=== PATIENT | female | born 2000 | race Caucasian/White ===

== ENCOUNTER 2021-03-20 09:26 | Emergency (ER) | payer OTHER ==
[2021-03-20 09:36] VITALS: BP 139/82
--- NOTE | 2021-03-20 09:39 | ED Physician Documentation ---
PD HPI CHEST PAIN - Stated complaint Stated Complaint: CHEST PX,SOA,NAUSEA - Chief complaint Chief Complaint: Cardiac - History obtained from History obtained from: Patient - History of Present Illness Timing - onset: Yesterday Timing - onset during: Rest Timing - duration: Days (1) Timing - details: Gradual onset, Still present Quality: Sharp, Pain Location: Substernal Radiation: Neck, Back Improved by: Rest Worsened by: Inspiration, Movement, Palpation, Position Associated symptoms: Shortness of air. No: Diaphoresis, Nausea, Vomiting, Feeling faint / dizzy, General Weakness, Palpitations, Cough Similar symptoms before: Has not had sx before Recently seen: Not recently seen - Additional information Additional information: 21-year-old female with a history of ADHD, depression and migraines, reports that she ran out of her bupropion 4 days ago and yesterday she began to develop some central chest pain that she states is stabbing in nature sharp and extremely painful. She has worse pain if she takes a deep breath in. She points to the area along the para sternal area on her chest to indicate the location of the pain. She does admit to sobbing at night recently. She has run out of her bupropion and she is feeling some numbness and tingling to her fingertips and toes as well. Review of Systems Constitutional: denies: Fever Eyes: denies: Decreased vision Ears: denies: Ear pain Nose: denies: Rhinorrhea / runny nose, Congestion Throat: denies: Sore throat Cardiac: reports: Chest pain / pressure. denies: Palpitations, Pedal edema, Calf pain Respiratory: reports: Dyspnea. denies: Cough, Hemoptysis, Wheezing GI: denies: Abdominal Pain, Nausea, Vomiting, Constipation, Diarrhea : denies: Dysuria, Frequency PD PAST MEDICAL HISTORY - Present Medications Home Medications: Ambulatory Orders Medication Instructions Recorded Confirmed traMADol [Ultram] 50 - 100 mg PO Q6H PRN #20 tablet 03/20/21 - Allergies Allergies/Adverse Reactions: Allergies Allergy/AdvReac Type Severity Reaction Status Date / Time Penicillins Allergy Anaphylaxis Verified 03/20/21 09:36 PD ED PE NORMAL - Vitals Vital signs reviewed: Yes (hypertensive ) - General General: Alert and oriented X 3, No acute distress, Well developed/nourished - HEENT HEENT: Atraumatic, PERRL, EOMI - Neck Neck: Supple, no meningeal sign, No bony TTP - Cardiac Cardiac: RRR, No murmur - Respiratory Respiratory: No respiratory distress, Clear bilaterally, Other (There is pain to palpation of the para sternal tissues that reproduces the pain the patient is experiencing.) - Abdomen Abdomen: Normal bowel sounds, Soft, Non tender, Non distended, No organomegaly - Back Back: No CVA TTP, No spinal TTP - Derm Derm: Normal color, Warm and dry, No rash - Extremities Extremities: No deformity, No edema - Neuro Neuro: Alert and oriented X 3, 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, No motor deficit, No sensory deficit, Normal speech Eye Opening: Spontaneous Motor: Obeys Commands Verbal: Oriented GCS Score: 15 - Psych Psych: Normal mood, Normal affect Results - Vitals Vitals: Vital Signs - 24 hr 03/20/21 03/20/21 09:32 09:44 Temperature 36.6 C 36.6 C Heart Rate 59 L 59 L Respiratory 16 13 Rate Blood Pressure 139/82 H 139/82 H O2 Saturation 100 100 Oxygen O2 Source Room air - EKG (time done) 0930 Rate: Rate (enter#) (69) Rhythm: NSR, LAE Ischemia: Normal ST segments Compare to prior EKG: Old EKG unavailable Computer interpretation: Agree with computer - Labs Labs: Laboratory Tests 03/20/21 03/20/21 03/20/21 10:09 10:09 10:09 WBC 5.4 RBC 4.18 L Hgb 12.6 Hct 37.8 MCV 90.4 MCH 30.1 MCHC 33.3 RDW 12.8 Plt Count 254 MPV 10.1 Neut # (Auto) 3.3 Lymph # (Auto) 1.7 [place] # (Auto) 0.4 Eos # (Auto) 0.0 Baso # (Auto) 0.0 Absolute Nucleated RBC 0.00 Nucleated RBC % 0.0 D-Dimer < 200.0 L Sodium 137 Potassium 3.7 Chloride 100 L Carbon Dioxide 27 Anion Gap 10.0 BUN 14 Creatinine 0.7 Estimated GFR (MDRD) 104 Glucose 97 Calcium 9.5 Total Bilirubin 0.3 AST 13 ALT 19 Alkaline Phosphatase 35 L Troponin I High Sens Total Protein 7.5 Albumin 4.6 Globulin 2.9 Albumin/Globulin Ratio 1.6 Lipase 23 03/20/21 10:09 WBC RBC Hgb Hct MCV MCH MCHC RDW Plt Count MPV Neut # (Auto) Lymph # (Auto) [place] # (Auto) Eos # (Auto) Baso # (Auto) Absolute Nucleated RBC Nucleated RBC % D-Dimer Sodium Potassium Chloride Carbon Dioxide Anion Gap BUN Creatinine Estimated GFR (MDRD) Glucose Calcium Total Bilirubin AST ALT Alkaline Phosphatase Troponin I High Sens < 2.3 L Total Protein Albumin Globulin Albumin/Globulin Ratio Lipase - Rads (name of study) chest Radiology: Prelim report reviewed (Impression: No acute cardiopulmonary process demonstrated radiographically.), EMP read indepedently, See rad report PD MEDICAL DECISION MAKING - ED course Complexity details: reviewed results, re-evaluated patient, considered differential, d/w patient ED course: 21-year-old female has discontinued her bupropion when she ran out and she is now began to experience some chest pain and she is concerned that it may be related. I have examined the patient and found that she has some parasternal tenderness that reproduces her pain and she has a history of sobbing at night. She appears to have costochondritis and we will treat her here in the emergency department with dexamethasone Toradol and bupropion. We will obtain specimens and imaging for ruling out cardiac disease as a reason for her chest pain. Departure - Departure Disposition: 01 Home, Self Care Clinical Impression: Costochondritis, acute Condition: Stable Instructions: ED Chest Pain Costochondritis Follow-Up: Your, doctor [Other] Prescriptions: traMADol [Ultram] 50 - 100 mg PO Q6H PRN #20 tablet PRN Reason: Pain
[2021-03-20] MEDS ORDERED: buPROPion XL 150 MG TABLET PO STA (10:00)
[2021-03-20] MEDS ORDERED: KETOROLAC 60 MG/2 ML VIAL IM STA (10:01)
[2021-03-20] MEDS ORDERED: CHERRY SYRUP 10 ML UDC PO ONE (10:01)
[2021-03-20] MEDS ORDERED: DEXAMETHASONE 10 MG/ML VIAL PO STA (10:01)
[2021-03-20 10:14] LABS: BASOPHILS % (AUTO) 0.4 %; EOSINOPHILS % (AUTO) 0.7 %; HCT - HEMATOCRIT 37.8 % (37.0-47.0); HGB - HEMOGLOBIN 12.6 g/dL (12.0-16.0); LYMPHOCYTES # (AUTO) 1.7 10^3/uL (1.5-3.5); LYMPHOCYTES % (AUTO) 31.2 %; MEAN CORPUSCULAR HEMOGLOBIN 30.1 pg (27.0-31.0); MEAN CORPUSCULAR HGB CONC 33.3 g/dL (32.0-36.0); MEAN CORPUSCULAR VOLUME 90.4 fL (81.0-99.0); MEAN PLATELET VOLUME 10.1 fL (7.9-10.8); MONOCYTES # (AUTO) 0.4 10^3/uL (0.0-1.0); MONOCYTES % (AUTO) 6.9 %; NEUTROPHILS # (AUTO) 3.3 10^3/uL (1.5-6.6); NEUTROPHILS % (AUTO) 60.6 %; PLT - PLATELET COUNT 254 10^3/uL (130-450); RED BLOOD COUNT 4.18 10^6/uL (4.20-5.40); RED CELL DISTRIBUTION WIDTH 12.8 % (12.0-15.0); WHITE BLOOD COUNT 5.4 x10^3/uL (4.8-10.8)
[2021-03-20 10:32] LABS: ALBUMIN 4.6 g/dL (3.2-5.5); ALBUMIN/GLOBULIN RATIO 1.6 (1.0-2.2); BILIRUBIN,TOTAL 0.3 mg/dL (0.2-1.0); CALCIUM 9.5 mg/dL (8.5-10.3); CREATININE 0.7 mg/dL (0.4-1.0); POTASSIUM 3.7 mmol/L (3.5-5.0); TOTAL PROTEIN 7.5 g/dL (6.7-8.2)
--- NOTE | 2021-03-20 10:34 | XRAY Report ---
PROCEDURE: Chest 2 View X-Ray INDICATIONS: Chest pain TECHNIQUE: 2 view(s) of the chest. COMPARISON: None. FINDINGS: Surgical changes and devices: None. Lungs and pleura: No pleural effusions or pneumothorax. Lungs are clear. Mediastinum: Mediastinal contours are normal. Heart size is normal. Bones and chest wall: No suspicious bony abnormalities. Soft tissues appear unremarkable. IMPRESSION: No acute cardiopulmonary process demonstrated radiographically. Reviewed by: Edison Ellis MD on 03/20/2021 10:32 AM PDT Approved by: Edison Ellis MD on 03/20/2021 10:32 AM PDT Station ID: [id number]
== END 2021-03-20 11:20 | disposition home or self-care (01) ==
LOC: ED 09:26
DX: M94.0 Chondrocostal junction syndrome [Tietze] (principal)
CPT/HCPCS: 36415; 71046; 80053; 83690; 84484; 85025; 85379; 93005; 96372; 99284; A9270

== ENCOUNTER 2021-04-30 19:46 | Outpatient (CLI) | payer OTHER | END 2021-04-30 19:47 | disposition EMS.NT | LOC: EMS 19:46 | DX: Z04.1 Encounter for examination and observation following transport accident (principal) ==

== ENCOUNTER 2021-04-30 21:53 | Emergency (ER) | payer OTHER ==
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
[2021-05-01 00:26] VITALS: BP 136/82
[2021-05-01] MEDS: ONDANSETRON ODT 4 MG TABLET TL STA (00:50)
[2021-05-01] MEDS: traMADol 50 MG TABLET PO STA (00:50)
[2021-05-01] MEDS: CYCLOBENZAPRINE 10 MG TABLET PO STA (00:50)
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
== END 2021-05-01 00:54 | disposition home or self-care (01) ==
LOC: ED 21:53
DX: S39.012A Strain of muscle, fascia and tendon of lower back, initial encounter (principal); S29.011A Strain of muscle and tendon of front wall of thorax, initial encounter; V43.52XA Car driver injured in collision with other type car in traffic accident, initial encounter
CPT/HCPCS: 70450; 72125; 73000; 99284; A9270; Q0162

== ENCOUNTER 2021-06-07 10:40 | Outpatient (CLI) | payer OTHER | END 2021-06-07 23:59 | disposition home or self-care (01) | LOC: LAB.N 10:40 | PROVIDERS: ATTEND Physician Assistant Medical | DX: R07.0 Pain in throat (principal); Z20.822 Contact with and (suspected) exposure to COVID-19 | CPT/HCPCS: 87070; 87077 ==

== ENCOUNTER 2021-11-20 11:45 | Emergency (ER) | payer OTHER ==
[2021-11-20 12:32] LABS: BASOPHILS % (AUTO) 0.3 %; EOSINOPHILS % (AUTO) 0.7 %; HGB - HEMOGLOBIN 12.5 g/dL (12.0-16.0); LYMPHOCYTES # (AUTO) 1.7 10^3/uL (1.5-3.5); LYMPHOCYTES % (AUTO) 28.2 %; MEAN CORPUSCULAR HGB CONC 34.7 g/dL (32.0-36.0); MEAN CORPUSCULAR VOLUME 89.3 fL (81.0-99.0); MEAN PLATELET VOLUME 10.2 fL (7.9-10.8); MONOCYTES # (AUTO) 0.4 10^3/uL (0.0-1.0); MONOCYTES % (AUTO) 7.5 %; NEUTROPHILS # (AUTO) 3.7 10^3/uL (1.5-6.6); NEUTROPHILS % (AUTO) 63.1 %; PLT - PLATELET COUNT 240 10^3/uL (130-450); RED BLOOD COUNT 4.03 10^6/uL (4.20-5.40); RED CELL DISTRIBUTION WIDTH 12.7 % (12.0-15.0); WHITE BLOOD COUNT 5.9 x10^3/uL (4.8-10.8)
[2021-11-20] MEDS ORDERED: HYDROcod/ACETAM 5/325 MG TABLET PO STA (12:35)
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
[2021-11-20 12:48] LABS: ALBUMIN 4.5 g/dL (3.2-5.5); ALBUMIN/GLOBULIN RATIO 1.6 (1.0-2.2); BILIRUBIN,TOTAL 0.4 mg/dL (0.2-1.0); CALCIUM 9.2 mg/dL (8.5-10.3); CREATININE 0.6 mg/dL (0.4-1.0); POTASSIUM 3.5 mmol/L (3.5-5.0); TOTAL PROTEIN 7.4 g/dL (6.7-8.2)
[2021-11-20 12:52] LABS: BILIRUBIN,URINE NEGATIVE (NEGATIVE); GLUCOSE, URINE (UA) NEGATIVE (NEGATIVE); KETONES,URINE (UA) NEGATIVE (NEGATIVE); LEUKOCYTE ESTERASE, URINE NEGATIVE (NEGATIVE); NITRITE,URINE NEGATIVE (NEGATIVE); OCCULT BLOOD,URINE TRACE-INTA (NEGATIVE); PH,URINE 5.5 PH (5.0-7.5); PROTEIN,URINE NEGATIVE (NEGATIVE); UROBILINOGEN,URINE 0.2 (NORMAL) E.U./dL (NORMAL)
[2021-11-20 12:54] LABS: CLARITY,URINE CLEAR (CLEAR)
--- NOTE | 2021-11-20 15:18 | Ultrasound Report ---
PROCEDURE: OB First Trimester w/TV INDICATIONS: pelvic pain, 5 weeks preg TECHNIQUE: Transvaginal ultrasound pelvis was performed. COMPARISON: None. FINDINGS: Uterus is appropriate in size and echotexture. Endometrial thickness measures approximately a 1.2 cm. Within the endometrial cavity, there is an irregular fluid collection without internal contents mart uring 2.3 x 0.7 x 1.1 cm. Both ovaries have appropriate vascularity. There is a complex left ovarian cyst measuring 2.4 x 1.7 x 2.4 cm. No free fluid or adnexal mass IMPRESSION: 1. Irregular fluid collection within the endometrial canal without internal contents. Differential po ssibilities would include normal early , anembryonic , and pseudosac and with nonvi sualized ectopic . Consider short-term follow-up 2. Complex left ovarian cyst, probable corpus luteum cyst. Reviewed by: Husam Huerta MD on 11/20/2021 2:17 PM [place] Approved by: Husam Huerta MD on 11/20/2021 2:17 PM [place] Station ID: [id number]
[2021-11-20] MEDS ORDERED: METHOTREXATE 50 MG/2 ML IM STA (15:50)
[2021-11-20 17:30] VITALS: BP 118/75
== END 2021-11-20 17:17 | disposition home or self-care (01) ==
LOC: ED 11:45
DX: O00.202 Left ovarian pregnancy without intrauterine pregnancy (principal); Z3A.01 Less than 8 weeks gestation of pregnancy
CPT/HCPCS: 36415; 76801; 76817; 80053; 81003; 83690; 84702; 85025; 86900; 86901; 96372; 99283; 99284; A9270; J9250; 81001; 87086

== ENCOUNTER 2021-11-23 09:28 | Day surgery (SDC) | payer OTHER ==
[2021-11-23 09:52] LABS: BILIRUBIN,URINE NEGATIVE (NEGATIVE); GLUCOSE, URINE (UA) NEGATIVE (NEGATIVE); KETONES,URINE (UA) NEGATIVE (NEGATIVE); LEUKOCYTE ESTERASE, URINE NEGATIVE (NEGATIVE); NITRITE,URINE NEGATIVE (NEGATIVE); OCCULT BLOOD,URINE TRACE-INTA (NEGATIVE); PROTEIN,URINE NEGATIVE (NEGATIVE); UROBILINOGEN,URINE 0.2 (NORMAL) E.U./dL (NORMAL)
[2021-11-23 09:53] LABS: CLARITY,URINE HAZY (CLEAR); HCG UR QUAL POSITIVE
--- NOTE | 2021-11-23 09:57 | ED Physician Documentation ---
PD HPI FEMALE - Stated complaint Stated Complaint: ABD PAIN - Chief complaint Chief Complaint: Abd Pain - History obtained from History obtained from: Patient - History of Present Illness Timing - onset: How many days ago (5) Timing - duration: Days (5) Timing - details: Gradual onset, Still present (worsened the past 2 days), Constant Associated symptoms: Fever (reports low fever 100 last evening.), Pelvic pain. No: Vaginal bleeding, Vaginal discharge Contributing factors: (seen 4 days ago and had US and quant showing tubal and given methotrexate. Patient states increased pain the past 2 days. Was to follow up with CHEMICAL PROCESSING SUPERVISOR today but pain worse.) Similar symptoms before: Diagnosis (current diagnosis of tubal .) Recently seen: Emergency Dept Review of Systems Constitutional: reports: Fever (last evening). denies: Myalgias Nose: denies: Rhinorrhea / runny nose, Congestion Throat: denies: Sore throat Respiratory: denies: Cough GI: reports: Abdominal Pain. denies: Abdominal Swelling, Vomiting, Diarrhea : denies: Dysuria, Discharge Neurologic: reports: Generalized weakness. 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 : None HEENT: Chronic vision loss Psych: Depression Musculoskeletal: None Derm: None - Past Surgical History Past Surgical History: No - Present Medications Home Medications: Ambulatory Orders Medication Instructions Recorded Confirmed HYDROcod/ACETAM 5/325 [[place] 5/325] 1 - 2 ea PO Q6H PRN #14 tablet 11/20/21 Ondansetron Odt [Zofran] 4 mg TL Q6H PRN #10 tablet 11/20/21 HYDROcod/ACETAM 5/325 [[place] 5/325] 1 - 2 tablet PO Q6H PRN #14 tablet 11/23/21 Ibuprofen [Motrin] 1 tablet PO Q8H PRN #30 tablet 11/23/21 - Allergies Allergies/Adverse Reactions: Allergies Allergy/AdvReac Type Severity Reaction Status Date / Time Penicillins Allergy Anaphylaxis Verified 11/23/21 09:37 hydromorphone AdvReac Hallucinati Verified 11/23/21 10:22 ons - Social History Does the pt smoke?: No Smoking Status: Never smoker Does the pt drink ETOH?: No Does the pt have substance abuse?: No - Immunizations Immunizations are current?: Yes - POLST Patient has POLST: No PD ED PE NORMAL - Vitals Vital signs reviewed: Yes - General General: Alert and oriented X 3, Well developed/nourished, Other (appears in pain lower abd.) - Neck Neck: Supple, no meningeal sign, No adenopathy - Cardiac Cardiac: RRR, No murmur - Respiratory Respiratory: Clear bilaterally - Abdomen Abdomen: No organomegaly, Other (Left lower abdominal tenderness most locally with marked tenderness on palpation as well as percussion. Referred tenderness from the right lower as well as the periumbilical to the left. Positive rebound.) - Female Female : Deferred - Back Back: No CVA TTP - Derm Derm: Normal color, Warm and dry Results - Vitals Vitals: Vital Signs - 24 hr 11/23/21 11/23/21 11/23/21 09:34 11:37 13:00 Temperature 36.3 C L Heart Rate 99 60 88 Respiratory 16 20 16 Rate Blood Pressure 121/72 119/58 L 136/85 H O2 Saturation 100 99 98 11/23/21 11/23/21 11/23/21 15:00 17:03 17:05 Temperature 36.5 C 37.3 C Heart Rate 86 98 104 H Respiratory 16 16 25 H Rate Blood Pressure 130/80 111/66 111/57 L O2 Saturation 100 100 100 11/23/21 11/23/21 11/23/21 17:11 17:15 17:20 Temperature Heart Rate 88 64 75 Respiratory 20 18 10 L Rate Blood Pressure 117/62 118/67 112/61 O2 Saturation 100 98 99 11/23/21 11/23/21 11/23/21 17:25 17:30 17:36 Temperature 37.3 C Heart Rate 72 59 L 60 Respiratory 17 15 16 Rate Blood Pressure 114/55 L 106/55 L 105/58 L O2 Saturation 100 99 98 11/23/21 11/23/21 11/23/21 17:41 17:50 18:14 Temperature 36.9 C Heart Rate 57 L 64 75 Respiratory 14 19 16 Rate Blood Pressure 105/65 106/63 117/63 O2 Saturation 99 100 100 11/23/21 11/23/21 19:29 20:29 Temperature Heart Rate 91 83 Respiratory 18 16 Rate Blood Pressure 107/85 H 119/53 L O2 Saturation 98 99 Oxygen O2 Source Room air - Labs Labs: Laboratory Tests 11/23/21 11/23/21 11/23/21 09:40 10:07 10:07 WBC 5.3 RBC 3.98 L Hgb 12.0 Hct 36.3 L MCV 91.2 MCH 30.2 MCHC 33.1 RDW 12.6 Plt Count 226 MPV 10.4 Neut # (Auto) 3.7 Lymph # (Auto) 1.3 L [place] # (Auto) 0.2 Eos # (Auto) 0.1 Baso # (Auto) 0.0 Absolute Nucleated RBC 0.00 Nucleated RBC % 0.0 Sodium 133 L Potassium 3.6 Chloride 101 Carbon Dioxide 23 Anion Gap 9.0 BUN 10 Creatinine 0.6 Estimated GFR (MDRD) 124 Glucose 129 H Calcium 9.0 Total Bilirubin 0.6 AST 30 ALT 35 Alkaline Phosphatase 25 L Total Protein 7.2 Albumin 4.1 Globulin 3.1 Albumin/Globulin Ratio 1.3 Lipase 26 HCG, Quant Urine Color YELLOW Urine Clarity HAZY Urine pH 6.0 Ur Specific [place] >=1.030 H Urine Protein NEGATIVE Urine Glucose (UA) NEGATIVE Urine Ketones NEGATIVE Urine Occult Blood TRACE-INTA Urine Nitrite NEGATIVE Urine Bilirubin NEGATIVE Urine Urobilinogen 0.2 (NORMAL) Ur Leukocyte Esterase NEGATIVE Urine RBC 0-5 Urine WBC 0-3 Ur Squamous Epith Cells MANY Squamous H Urine Bacteria Many H Urine Mucus Marked Strands Ur Microscopic Review INDICATED Urine Culture Comments NOT INDICATED Urine HCG, Qual POSITIVE Nasal Adenovirus (PCR) Nasal B. parapertussis DNA (PCR) Nasal Coronavir 229E PCR Nasal Coronavir HKU1 PCR Nasal Coronavir NL63 PCR Nasal Coronavir OC43 PCR Nasal Enterovir/Rhinovir PCR Nasal Influenza B PCR Nasal Influenza A PCR Nasal Parainfluen 1 PCR Nasal Parainfluen 2 PCR Nasal Parainfluen 3 PCR Nasal Parainfluen 4 PCR Nasal RSV (PCR) Nasal B.pertussis DNA PCR Nasal C.pneumoniae (PCR) [place] Human Metapneumo PCR Nasal M.pneumoniae (PCR) Nasal SARS-CoV-2 (PCR) Blood Type 11/23/21 11/23/21 11/23/21 10:07 10:07 12:12 WBC RBC Hgb Hct MCV MCH MCHC RDW Plt Count MPV Neut # (Auto) Lymph # (Auto) [place] # (Auto) Eos # (Auto) Baso # (Auto) Absolute Nucleated RBC Nucleated RBC % Sodium Potassium Chloride Carbon Dioxide Anion Gap BUN Creatinine Estimated GFR (MDRD) Glucose Calcium Total Bilirubin AST ALT Alkaline Phosphatase Total Protein Albumin Globulin Albumin/Globulin Ratio Lipase HCG, Quant 2249.00 Urine Color Urine Clarity Urine pH Ur Specific [place] Urine Protein Urine Glucose (UA) Urine Ketones Urine Occult Blood Urine Nitrite Urine Bilirubin Urine Urobilinogen Ur Leukocyte Esterase Urine RBC Urine WBC Ur Squamous Epith Cells Urine Bacteria Urine Mucus Ur Microscopic Review Urine Culture Comments Urine HCG, Qual Nasal Adenovirus (PCR) NOT DETECTED Nasal B. parapertussis DNA (PCR) NOT DETECTED Nasal Coronavir 229E PCR NOT DETECTED Nasal Coronavir HKU1 PCR NOT DETECTED Nasal Coronavir NL63 PCR NOT DETECTED Nasal Coronavir OC43 PCR NOT DETECTED Nasal Enterovir/Rhinovir PCR NOT DETECTED Nasal Influenza B PCR NOT DETECTED Nasal Influenza A PCR NOT DETECTED Nasal Parainfluen 1 PCR NOT DETECTED Nasal Parainfluen 2 PCR NOT DETECTED Nasal Parainfluen 3 PCR NOT DETECTED Nasal Parainfluen 4 PCR NOT DETECTED Nasal RSV (PCR) NOT DETECTED Nasal B.pertussis DNA PCR NOT DETECTED Nasal C.pneumoniae (PCR) NOT DETECTED [place] Human Metapneumo PCR NOT DETECTED Nasal M.pneumoniae (PCR) NOT DETECTED Nasal SARS-CoV-2 (PCR) NOT DETECTED Blood Type A POSITIVE - Rads (name of study) OB U/S Radiology: Prelim report reviewed (similar to 3 days ago, without free fluid in pelvis. Ovarian mass still seen. No IUP. ), See rad report PD MEDICAL DECISION MAKING - ED course Complexity details: reviewed old records (from 4 days ago), reviewed results (rising quants may be just methotrexate not having full effect yet, but is about doubled, and patient having worse pain. No signs of rupture as yet but concern for that. ), considered differential (Patient with ectopic treated with methotrexate 3 days ago with worsening pain. She also claims fever last night. Abdominal exam is peritoneal concerning for possible rupture or general inflammatory), d/w patient, d/w business intelligence consultant (CHEMICAL PROCESSING SUPERVISOR) Departure - Departure Disposition: ED Transfer to [facility] Clinical Impression: Ectopic , Abdominal pain Condition: Stable Discharge Date/Time: 11/23/21 16:39
[2021-11-23] MEDS ORDERED: HYDROmorphone 1 MG/ML CARPUJECT IVP STA (10:01)
[2021-11-23] MEDS ORDERED: ONDANSETRON 4 MG/2 ML VIAL IVP STA (10:01)
[2021-11-23] MEDS ORDERED: KETOROLAC 15 MG/ML VIAL IVP STA (10:01)
[2021-11-23] MEDS ORDERED: SODIUM CHLORIDE 0.9% 1,000 ML IV STA (10:01)
[2021-11-23 10:10] LABS: BACTERIA,URINE Many /HPF (None Seen); MUCUS,URINE Marked Strands; RBC,URINE 0-5 /HPF (0-5); SQUAMOUS EPITHELIAL CELL,UR MANY Squamous (<= Few); WBC,URINE 0-3 /HPF (0-5)
[2021-11-23 10:15] LABS: BASOPHILS % (AUTO) 0.4 %; EOSINOPHILS # (AUTO) 0.1 10^3/uL (0.0-0.7); EOSINOPHILS % (AUTO) 1.1 %; HCT - HEMATOCRIT 36.3 % (37.0-47.0); LYMPHOCYTES # (AUTO) 1.3 10^3/uL (1.5-3.5); LYMPHOCYTES % (AUTO) 24.8 %; MEAN CORPUSCULAR HEMOGLOBIN 30.2 pg (27.0-31.0); MEAN CORPUSCULAR HGB CONC 33.1 g/dL (32.0-36.0); MEAN CORPUSCULAR VOLUME 91.2 fL (81.0-99.0); MEAN PLATELET VOLUME 10.4 fL (7.9-10.8); MONOCYTES # (AUTO) 0.2 10^3/uL (0.0-1.0); MONOCYTES % (AUTO) 3.2 %; NEUTROPHILS # (AUTO) 3.7 10^3/uL (1.5-6.6); NEUTROPHILS % (AUTO) 70.3 %; PLT - PLATELET COUNT 226 10^3/uL (130-450); RED BLOOD COUNT 3.98 10^6/uL (4.20-5.40); RED CELL DISTRIBUTION WIDTH 12.6 % (12.0-15.0); WHITE BLOOD COUNT 5.3 x10^3/uL (4.8-10.8)
[2021-11-23 10:28] LABS: ALBUMIN 4.1 g/dL (3.2-5.5); ALBUMIN/GLOBULIN RATIO 1.3 (1.0-2.2); BILIRUBIN,TOTAL 0.6 mg/dL (0.2-1.0); CREATININE 0.6 mg/dL (0.4-1.0); POTASSIUM 3.6 mmol/L (3.5-5.0); TOTAL PROTEIN 7.2 g/dL (6.7-8.2)
[2021-11-23] MEDS ORDERED: fentaNYL 100 MCG/2 ML VIAL IVP STA (12:32)
--- NOTE | 2021-11-23 12:43 | Ultrasound Report ---
PROCEDURE: OB First Trimester INDICATIONS: worse pain, ectopic dx 4 days ago OUTSIDE/PRIOR DATING DATA: Last menstrual period (LMP): 10/18/2021. LMP-based estimated date of delivery (MANN): 07/25/2022. First dating scan (date and location): n.a. Estimated date of delivery (MANN) from first dating scan: n.a. TECHNIQUE: Real-time scanning was performed of the fetus and maternal pelvic organs, with image documentation. COMPARISON: The ultrasound 11/20/2021. FINDINGS: No intrauterine is identified. Endometrium is thickened. There are 2 small cysti c structures within the endometrium measuring approximately 4 mm. Maternal organs: There is a complex cyst in the left ovary measuring 2.9 x 2.2 x 1.8 cm. Right ovary is grossly normal. IMPRESSION: 1. No intrauterine is identified. Two small 4 mm cystic structures are noted in the endomet rium. Irregular fluid collection seen in the uterine cavity on the last exam is no longer visualized. Please correlate with quantitative beta hCG. 2. Complex cyst is present in the left ovary measuring 2.9 x 2.2 x 1.8 cm. Reviewed by: Magdalene Mera MD on 11/23/2021 12:42 PM PST Approved by: Magdalene Mera MD on 11/23/2021 12:42 PM PST Station ID: [id number]
--- NOTE | 2021-11-23 12:50 | CONSULTATION NOTE ---
Referring Provider Consult Date: 11/23/21 Chief Complaint - Chief Complaint Chief Complaint: Ectopic History of Present Illness - Admitted From Admitted From:: ED - History of Present Illness HPI Comment/Other: Patient presents with complaints of left lower abdominal pain. She reports she began to have pain nausea and vomiting on Friday. She presented to the emergency department at that time and was found to have an ectopic . Following counseling the patient reports received methotrexate. She returned to the emergency department today for a follow-up blood draw and reports that she has had increasing abdominal pain as well as increased nausea and vomiting. Ultrasound today shows a left-sided complex mass. No intrauterine was noted. Her beta-hCG was noted to be 2200. MACHINE LAY OUT WORKER was consulted for evaluation. History - Past Medical History Cardiovascular: reports: None Respiratory: reports: None Neuro: reports: None Endocrine/Autoimmune: reports: None GI: reports: None MACHINE LAY OUT WORKER: reports: Miscarriage(s) (x2 (first trimester) ) : reports: None HEENT: reports: Chronic vision loss Psych: reports: Depression Musculoskeletal: reports: None Derm: reports: None MRSA Hx?: No - POLST Patient has POLST: No Meds/Allgy - Home Medications Home Medications: Ambulatory Orders Medication Instructions Recorded Confirmed HYDROcod/ACETAM 5/325 [[place] 5/325] 1 - 2 ea PO Q6H PRN #14 tablet 11/20/21 Ondansetron Odt [Zofran] 4 mg TL Q6H PRN #10 tablet 11/20/21 - Allergies Allergies/Adverse Reactions: Allergies Allergy/AdvReac Type Severity Reaction Status Date / Time Penicillins Allergy Anaphylaxis Verified 11/23/21 09:37 hydromorphone AdvReac Hallucinati Verified 11/23/21 10:22 ons Review of Systems - Constitutional Constitutional: reports: Chills. denies: Fever - Gastrointestinal Gastrointestinal: reports: Abdominal pain, Nausea, Vomiting Exam - Vital Signs Reviewed Vital Signs: Yes Vital Signs: Vital Signs x48h Temp Pulse Resp BP Pulse Ox 11/23/21 11:37 60 20 119/58 L 99 11/23/21 09:34 97.3 F L 99 16 121/72 100 - Physical Exam General Appearance: positive: Mild distress Respiratory: positive: No respiratory distress Abdomen: positive: Tenderness (Left lower quadrant), Rebound Conclusion/Plan - Problem List (1) Ectopic Conclusion/Plan: Suspected ectopic . Status post methotrexate with increasing pain. Beta-hCG of 2200. Repeat ultrasound with left adnexal mass noted. No free fluid was appreciated. However the patient does have left-sided tenderness. She was counseled regarding expectant management with follow-up beta hCG on day 7 following methotrexate versus surgical management. We discussed the risk of ruptured ectopic which include the risk of hemorrhage. Following counseling she elected for diagnostic laparoscopy. OR team notified. Plan to proceed with diagnostic laparoscopy with left possible salpingo-oophorectomy. All questions and concerns answered. - Lab Results Lab results reviewed: Yes Fish Bones: 11/23/21 10:07 11/23/21 10:07 - Diagnostic Imaging Results Diagnostic Imaging Results: positive: Final report reviewed Diagnostic Imaging Results Comments: Ultrasound with 2.9 x 2.2 x 1.8 cm complex left ovarian cyst noted. No intrauterine . 4 mm cystic structure in the endometrium.
--- NOTE | 2021-11-23 13:09 | HISTORY & PHYSICAL EXAMINATION ---
Admit History - : 5 Parity: 2 : 2 Smoking Status: Never smoker - Other Maternal History Other Maternal History: Referring Provider Consult Date: 11/23/21 Chief Complaint - Chief Complaint Chief Complaint: Ectopic History of Present Illness - Admitted From Admitted From:: ED - History of Present Illness HPI Comment/Other: Patient presents with complaints of left lower abdominal pain. She reports she began to have pain nausea and vomiting on Friday. She presented to the emergency department at that time and was found to have an ectopic . Following counseling the patient reports received methotrexate. She returned to the emergency department today for a follow-up blood draw and reports that she has had increasing abdominal pain as well as increased nausea and vomiting. Ultrasound today shows a left-sided complex mass. No intrauterine was noted. Her beta-hCG was noted to be 2200. TANK BUILDER was consulted for evaluation. History - Past Medical History Cardiovascular: reports: None Respiratory: reports: None Neuro: reports: None Endocrine/Autoimmune: reports: None GI: reports: None TANK BUILDER: reports: Miscarriage(s) (x2 (first trimester) ) : reports: None HEENT: reports: Chronic vision loss Psych: reports: Depression Musculoskeletal: reports: None Derm: reports: None MRSA Hx?: No - POLST Patient has POLST: No Meds/Allgy - Home Medications Home Medications: Ambulatory Orders Medication Instructions Recorded Confirmed HYDROcod/ACETAM 5/325 [[place] 5/325] 1 - 2 ea PO Q6H PRN #14 tablet 11/20/21 Ondansetron Odt [Zofran] 4 mg TL Q6H PRN #10 tablet 11/20/21 - Allergies Allergies/Adverse Reactions: Allergies Allergy/AdvReac Type Severity Reaction Status Date / Time Penicillins Allergy Anaphylaxis Verified 11/23/21 09:37 hydromorphone AdvReac Hallucinati Verified 11/23/21 10:22 ons Review of Systems - Constitutional Constitutional: reports: Chills. denies: Fever - Gastrointestinal Gastrointestinal: reports: Abdominal pain, Nausea, Vomiting Exam - Vital Signs Reviewed Vital Signs: Yes Vital Signs: Vital Signs x48h Temp Pulse Resp BP Pulse Ox 11/23/21 11:37 60 20 119/58 L 99 11/23/21 09:34 97.3 F L 99 16 121/72 100 - Physical Exam General Appearance: positive: Mild distress Respiratory: positive: No respiratory distress Abdomen: positive: Tenderness (Left lower quadrant), Rebound Conclusion/Plan - Problem List (1) Ectopic Conclusion/Plan: Suspected ectopic . Status post methotrexate with increasing pain. Beta-hCG of 2200. Repeat ultrasound with left adnexal mass noted. No free fluid was appreciated. However the patient does have left-sided tenderness. She was counseled regarding expectant management with follow-up beta hCG on day 7 following methotrexate versus surgical management. We discussed the risk of ruptured ectopic which include the risk of hemorrhage. Following counseling she elected for diagnostic laparoscopy. OR team notified. Plan to proceed with diagnostic laparoscopy with left possible salpingo-oophorectomy. All questions and concerns answered. - Lab Results Lab results reviewed: Yes Fish Bones: 11/23/21 10:07 11/23/21 10:07 - Diagnostic Imaging Results Diagnostic Imaging Results: positive: Final report reviewed Diagnostic Imaging Results Comments: Ultrasound with 2.9 x 2.2 x 1.8 cm complex left ovarian cyst noted. No intrauterine . 4 mm cystic structure in the endometrium. Meds/Allgy - Home Medications Home Medications: Ambulatory Orders Medication Instructions Recorded Confirmed HYDROcod/ACETAM 5/325 [[place] 5/325] 1 - 2 ea PO Q6H PRN #14 tablet 11/20/21 Ondansetron Odt [Zofran] 4 mg TL Q6H PRN #10 tablet 11/20/21 - Allergies Allergies/Adverse Reactions: Allergies Allergy/AdvReac Type Severity Reaction Status Date / Time Penicillins Allergy Anaphylaxis Verified 11/23/21 09:37 hydromorphone AdvReac Hallucinati Verified 11/23/21 10:22 ons Physical - Abdominal Exam Vital Signs: Temp Pulse Resp BP Pulse Ox 97.3 F L 60 20 119/58 L 99 11/23/21 09:34 11/23/21 11:37 11/23/21 11:37 11/23/21 11:37 11/23/21 11:37 Assessment/Plan - Results Lab Results: Laboratory Results Sodium 133 mmol/L (135-145) L 11/23/21 10:07 Potassium 3.6 mmol/L (3.5-5.0) 11/23/21 10:07 Chloride 101 mmol/L (101-111) 11/23/21 10:07 Carbon Dioxide 23 mmol/L (21-32) 11/23/21 10:07 Anion Gap 9.0 (6-13) 11/23/21 10:07 BUN 10 mg/dL (6-20) 11/23/21 10:07 Creatinine 0.6 mg/dL (0.4-1.0) 11/23/21 10:07 Glucose 129 mg/dL (70-100) H 11/23/21 10:07 Calcium 9.0 mg/dL (8.5-10.3) 11/23/21 10:07 Total Bilirubin 0.6 mg/dL (0.2-1.0) 11/23/21 10:07 AST 30 IU/L (10-42) 11/23/21 10:07 ALT 35 IU/L (10-60) 11/23/21 10:07 Alkaline Phosphatase 25 IU/L (42-121) L 11/23/21 10:07 Total Protein 7.2 g/dL (6.7-8.2) 11/23/21 10:07 Albumin 4.1 g/dL (3.2-5.5) 11/23/21 10:07 Globulin 3.1 g/dL (2.1-4.2) 11/23/21 10:07 Albumin/Globulin Ratio 1.3 (1.0-2.2) 11/23/21 10:07 - Home Meds/Allergies Allergies Penicillins Allergy (Verified 11/23/21 09:37) Anaphylaxis hydromorphone Adverse Reaction (Verified 11/23/21 10:22) Hallucinations
--- NOTE | 2021-11-23 13:18 | Ultrasound Report ---
PROCEDURE: OB Transvaginal INDICATIONS: worse pain, ectopic dx 4 days ago OUTSIDE/PRIOR DATING DATA: Last menstrual period (LMP): 10/18/2021. LMP-based estimated date of delivery (MANN): 07/25/2022. First dating scan (date and location): n.a. Estimated date of delivery (MANN) from first dating scan: n.a. TECHNIQUE: Real-time endovaginal scanning was performed of the fetus and maternal pelvic organs, with image docu mentation. COMPARISON: The ultrasound 11/20/2021. FINDINGS: No intrauterine is identified. Endometrium is thickened. There are 2 small cysti c structures within the endometrium measuring approximately 4 mm. Maternal organs: There is a complex cyst in the left ovary measuring 2.9 x 2.2 x 1.8 cm. Right ovary is grossly normal. IMPRESSION: 1. No intrauterine is identified. Two small 4 mm cystic structures are noted in the endomet rium. Irregular fluid collection seen in the uterine cavity on the last exam is no longer visualized. Please correlate with quantitative beta hCG. 2. Complex cyst is present in the left ovary measuring 2.9 x 2.2 x 1.8 cm. Reviewed by: Magdalene Mera MD on 11/23/2021 1:17 PM PST Approved by: Magdalene Mera MD on 11/23/2021 1:17 PM PST Station ID: [id number]
[2021-11-23 13:25] LABS: B. PARAPERTUSSIS- RESP PCR PAN NOT DETECTED; B. PERTUSSIS- RESP PCR PANEL NOT DETECTED; C. PNEUMONIAE- RESP PCR PANEL NOT DETECTED; CORONAVIRUS 229E-RESP PCR NOT DETECTED; CORONAVIRUS HKU1-RESP PCR NOT DETECTED; CORONAVIRUS NL63-RESP PCR NOT DETECTED; CORONAVIRUS OC43-RESP PCR NOT DETECTED; HUMAN METAPNEUMOVIRUS NOT DETECTED; INFLUENZA A- RESP PCR PANEL NOT DETECTED; INFLUENZA B - RESP PCR PANEL NOT DETECTED; M. PNEUMONIAE- RESP PCR PANEL NOT DETECTED; PARAINFLUENZA VIRUS 1 NOT DETECTED; PARAINFLUENZA VIRUS 2 NOT DETECTED; PARAINFLUENZA VIRUS 3 NOT DETECTED; PARAINFLUENZA VIRUS 4 NOT DETECTED; RHINOVIRUS/ENTEROVIRUS NOT DETECTED; RSV- RESP PCR PANEL NOT DETECTED; SARS-CoV-2 -RESP PCR PANEL NOT DETECTED
[2021-11-23] MEDS ORDERED: LIDOCAINE-MPF 2% 5 ML VIAL ONE (13:45)
[2021-11-23] MEDS ORDERED: PROPOFOL 200 MG/20 ML VIAL IVP ONE (13:45)
[2021-11-23] MEDS ORDERED: KETOROLAC 30 MG/ML VIAL ONE (13:46)
[2021-11-23] MEDS ORDERED: DEXAMETHASONE 4 MG/ML VIAL ONE (13:46)
[2021-11-23] MEDS ORDERED: ROCURONIUM 50 MG/5 ML VIAL ONE (13:46)
[2021-11-23] MEDS ORDERED: ePHEDrine 50 MG/ML VIAL IVP PRN (14:59)
[2021-11-23] MEDS ORDERED: ONDANSETRON 4 MG/2 ML VIAL IVP PRN (14:59)
[2021-11-23] MEDS ORDERED: HYDROmorphone 0.5 MG/0.5 ML SYRINGE IVP PRN (14:59)
[2021-11-23] MEDS ORDERED: MORPHINE 2 MG/ML CARPUJECT IVP PRN (14:59)
[2021-11-23] MEDS ORDERED: fentaNYL 100 MCG/2 ML VIAL IVP PRN (14:59)
[2021-11-23] MEDS ORDERED: METOCLOPRAMIDE 10 MG/2 ML VIAL IVP PRN (14:59)
[2021-11-23] MEDS ORDERED: ATROPINE ABBOJECT 1 MG/10 ML SYRINGE IVP PRN (14:59)
[2021-11-23] MEDS ORDERED: NALOXONE 0.4 MG/ML VIAL IVP PRN (14:59)
[2021-11-23] MEDS ORDERED: LACTATED RINGERS 1,000 ML IV SCH ×2 (15:00→18:00)
--- NOTE | 2021-11-23 15:00 | ANESTHESIA ---
Pre-Anesthesia VS, & Labs - Diagnosis ectopic - Procedure Diagnostic laparoscopy Vital Signs: Temp Pulse Resp BP Pulse Ox 36.3 C L 88 16 136/85 H 98 11/23/21 09:34 11/23/21 13:00 11/23/21 13:00 11/23/21 13:00 11/23/21 13:00 Height: 5 ft 7 in Weight (kg): 95.254 kg Body Mass Index: 32.8 BMI Classification: Obese - NPO >8 hours - Is Patient ?: Yes (ectopic) - Lab Results Current Lab Results: Laboratory Tests 11/23/21 10:07: Blood Type A POSITIVE 11/23/21 10:07: HCG, Quant 2249.00 11/23/21 10:07: Sodium 133 L, Potassium 3.6, Chloride 101, Carbon Dioxide 23, Anion Gap 9.0, BUN 10, Creatinine 0.6, Estimated GFR (MDRD) 124, Glucose 129 H, Calcium 9.0, Total Bilirubin 0.6, AST 30, ALT 35, Alkaline Phosphatase 25 L, Total Protein 7.2, Albumin 4.1, Globulin 3.1, Albumin/Globulin Ratio 1.3, Lipase 26 11/23/21 10:07: WBC 5.3, RBC 3.98 L, Hgb 12.0, Hct 36.3 L, MCV 91.2, MCH 30.2, MCHC 33.1, RDW 12.6, Plt Count 226, MPV 10.4, Neut # (Auto) 3.7, Lymph # (Auto) 1.3 L, [place] # (Auto) 0.2, Eos # (Auto) 0.1, Baso # (Auto) 0.0, Absolute Nucleated RBC 0.00, Nucleated RBC % 0.0 Lab results reviewed: Yes Fish Bones: 11/23/21 10:07 11/23/21 10:07 Home Medications and Allergies Allergies/Adverse Reactions: Allergies Allergy/AdvReac Type Severity Reaction Status Date / Time Penicillins Allergy Anaphylaxis Verified 11/23/21 09:37 hydromorphone AdvReac Hallucinati Verified 11/23/21 10:22 ons Anes History & Medical History - Anesthetic History Anesthesia Complications: reports: No previous complications Family history of Anesthesia Complications: Denies Family history of Malignant Hyperthermia: Denies - Medical History Cardiovascular: reports: None Pulmonary: reports: None Gastrointestinal: reports: None Urinary: reports: None Neuro: reports: None Musculoskeletal: reports: None Endocrine/Autoimmune: reports: None Blood Disorders: reports: None Skin: reports: None Smoking Status: Current some day smoker Psychosocial: reports: Cannabis - Obstetrical History : 5 Parity: 2 Exam General: Alert, Oriented x3, Cooperative, No acute distress Dental: WNL Mouth Openin Fingerbreadth Neck Mobility: Normal Mallampati classification: II Plan Anesthesia Type: General Regional Block: Per Surgeon's request for Post Op pain control Consent for Procedure(s) Verified and Reviewed: Yes Code Status: Attempt Resuscitation ASA classification: 2-Mild systemic disease Is this case an emergency?: Yes
[2021-11-23] MEDS ORDERED: LIDOCAINE 2%-EPI 1:100000 20 ML MDV ONE (15:03)
[2021-11-23] MEDS ORDERED: BUPIVACAINE 0.25% PF 10 ML VIAL ONE (15:03)
[2021-11-23] MEDS ORDERED: LACTATED RINGERS 1,000 ML IV ONE ×3 (17:00→17:59)
[2021-11-23] MEDS ORDERED: PROMETHAZINE INJ 6.25 MG in SODIUM CHLORIDE 0.9% 50 ML IV PRN (17:16)
--- NOTE | 2021-11-23 17:16 | ANESTHESIA POST OP EVALUATION ---
Anesthesia Post Eval - Post Anesthesia Eval Vitals: Last Vital Signs Temp 36.5 C 11/23/21 15:00 Pulse 88 11/23/21 17:11 Resp 20 11/23/21 17:11 BP 117/62 11/23/21 17:11 Pulse Ox 100 11/23/21 17:11 CV Function Including HR & BP: Stable Pain Control: Satisfactory Nausea & Vomiting: Negative Mental Status: Baseline Respiratory Status: Airway Patent Hydration Status: Satisfactory Anesthesia Complications: None
[2021-11-23] MEDS ORDERED: LORazepam 2 MG/ML VIAL IVP PRN (17:19)
[2021-11-23] MEDS ORDERED: KETOROLAC 30 MG/ML VIAL IVP SCH (17:19)
[2021-11-23] MEDS ORDERED: fentaNYL 100 MCG/2 ML VIAL ONE (17:23)
[2021-11-23] MEDS ORDERED: PROMETHAZINE 25 MG/1 ML VIAL ONE (17:32)
--- NOTE | 2021-11-23 17:42 | OPERATIVE REPORT ---
Operative Report - General Procedure Date: 11/23/21 Planned Procedure: Diagnostic laparoscopy, Removal of ectopic Pre-Op Diagnosis: Ectopic Procedure Performed: Diagnostic laparoscopy, left ovarian cystectomy Post Op Diagnosis: Left ovarian ectopic - Procedure Note Primary Surgeon: Charu Mckoy MD Secondary Surgeon: Oli Potter MD Anesthesia Provider: Alvino Brenner CRNA Anesthesia Technique: General ET tube Pathology: Left adnexal mass (ovarian) Estimated Blood Loss (mL): 5 Urine Output (mL): 50 Indications: Ectopic Findings: Approximately 4cm left ovarian mass, Normal-appearing bilateral fallopian tubes, normal-appearing uterus. Normal-appearing right ovary. Complications: None - Other Other Information/Narrative: Following informed consent the patient was taken to the operating room. She was placed in dorsal lithotomy position and prepped and draped in the usual sterile fashion. A HUMI uterine manipulator was placed. Attention was then turned to laparoscopy. Veress needle was in initially placed in the umbilicus and CO2 was insufflated in the abdomen. Due to increase pressure entry was then performed with direct visualization using a 5 mm trocar. The 5 mm trocar was inserted successfully. The abdomen was then insufflated with CO2. Evaluation of the pelvis revealed a left ovarian mass. Additional 5 mm trochars were then placed in the lower quadrant without difficulty. The left ovary was grafted using an atraumatic grasper and left cystectomy was performed using LigaSure device. Hemostasis was assured using electrocautery. The abdomen was copiously irrigated and hemostasis again noted. The right lower quadrant trocar was replaced about 11 mm trocar. The specimen was removed using an Endo Catch. The specimen was sent to pathology. The 11 mm trocar was then removed and the fascia site closed with Vicryl suture. CO2 was allowed to eflux from the abdomen and all instruments were removed under direct visualization. The patient was extubated and taken to the recovery room in stable condition.
[2021-11-23] MEDS ORDERED: KETOROLAC 15 MG/ML VIAL ONE (17:58)
[2021-11-23] MEDS ORDERED: ACETAMINOPHEN 325 MG TABLET PO PRN (18:40)
[2021-11-23 20:36] VITALS: BP 119/53
[2021-11-23] MEDS ORDERED: BENZOCAINE/MENTHOL LOZENGE MM PRN (20:48)
--- NOTE | 2021-11-23 22:55 | DISCHARGE SUMMARY ---
Discharge Summary Admit Date: 11/23/21 Discharge Date: 11/23/21 Discharging Provider: Charu Mckoy MD Condition at Discharge: Stable Discharge Disposition: 01 Home, Self Care - DIAGNOSES Admission Diagnoses: Ectopic Discharge Diagnoses with Status of Each Condition: Ectopic , s/p diagnostic laparoscopy and left ovarian cystectomy - HOSPITAL COURSE Hospital Course: Patient presented to the emergency department with complaints of abdominal pain. She has known diagnosis of ectopic status post methotrexate. She reported increasing abdominal pain. She was counseled and desired surgical management. She underwent an uncomplicated diagnostic laparoscopy with left ovarian cystectomy. She had an unremarkable postoperative course. She was stable for discharge on postop day 1 with recommendations for follow-up of pathology and postop check in 2 to 3 weeks.. - ALLERGIES Allergies/Adverse Reactions: Allergies Allergy/AdvReac Type Severity Reaction Status Date / Time Penicillins Allergy Anaphylaxis Verified 11/23/21 09:37 hydromorphone AdvReac Hallucinati Verified 11/23/21 10:22 ons - MEDICATIONS Home Medications: Ambulatory Orders Medication Instructions Recorded Confirmed HYDROcod/ACETAM 5/325 [[place] 5/325] 1 - 2 ea PO Q6H PRN #14 tablet 11/20/21 Ondansetron Odt [Zofran] 4 mg TL Q6H PRN #10 tablet 11/20/21 HYDROcod/ACETAM 5/325 [[place] 5/325] 1 - 2 tablet PO Q6H PRN #14 tablet 11/23/21 Ibuprofen [Motrin] 1 tablet PO Q8H PRN #30 tablet 11/23/21 - LABS Result Diagrams: 11/23/21 10:07 11/23/21 10:07 - DIAGNOSTIC IMAGING Diagnostic Imaging Results: Final report reviewed - FOLLOW UP Follow Up: 2 to 3 weeks for pathology and postop check with [facility]. - TIME SPENT Time Spent in Discharge (Minutes): 30
== END 2021-11-23 21:36 | disposition home or self-care (01) ==
LOC: ED 09:28 → SDS 16:15 → MS2 17:42 → SDS 21:36
PROVIDERS: ATTEND Obstetrics & Gynecology
PROC: 0UB14ZZ Excision of Left Ovary, Percutaneous Endoscopic Approach (ICD-10-PCS; principal; 2021-11-23 15:45)
DX: N83.12 Corpus luteum cyst of left ovary (principal); O00.90 Unspecified ectopic pregnancy without intrauterine pregnancy; E66.9 Obesity, unspecified; Z20.822 Contact with and (suspected) exposure to COVID-19; Z68.32 Body mass index [BMI] 32.0-32.9, adult; Z88.0 Allergy status to penicillin; Z88.5 Allergy status to narcotic agent
CPT/HCPCS: 0202U; 36415; 58662; 76801; 76817; 80053; 81001; 81025; 83690; 84702; 85025; 86900; 86901; 96374; 96375; 99284; 99285; J7120; 81003; 87086

== ENCOUNTER 2022-04-04 21:53 | Emergency (ER) | payer OTHER ==
[2022-04-04] MEDS ORDERED: SODIUM CHLORIDE 0.9% 1,000 ML IV STA (22:28)
[2022-04-04] MEDS ORDERED: LIDOCAINE PATCH 5% TOP STA (22:28)
[2022-04-04 22:41] LABS: BASOPHILS % (AUTO) 0.3 %; EOSINOPHILS # (AUTO) 0.1 10^3/uL (0.0-0.7); HCT - HEMATOCRIT 34.1 % (37.0-47.0); HGB - HEMOGLOBIN 11.7 g/dL (12.0-16.0); LYMPHOCYTES # (AUTO) 1.9 10^3/uL (1.5-3.5); LYMPHOCYTES % (AUTO) 26.5 %; MEAN CORPUSCULAR HEMOGLOBIN 30.3 pg (27.0-31.0); MEAN CORPUSCULAR HGB CONC 34.3 g/dL (32.0-36.0); MEAN CORPUSCULAR VOLUME 88.3 fL (81.0-99.0); MEAN PLATELET VOLUME 10.8 fL (7.9-10.8); MONOCYTES # (AUTO) 0.6 10^3/uL (0.0-1.0); MONOCYTES % (AUTO) 7.8 %; NEUTROPHILS # (AUTO) 4.7 10^3/uL (1.5-6.6); NEUTROPHILS % (AUTO) 64.3 %; PLT - PLATELET COUNT 210 10^3/uL (130-450); RED BLOOD COUNT 3.86 10^6/uL (4.20-5.40); RED CELL DISTRIBUTION WIDTH 12.7 % (12.0-15.0); WHITE BLOOD COUNT 7.3 x10^3/uL (4.8-10.8)
[2022-04-04 22:57] LABS: BILIRUBIN,URINE NEGATIVE (NEGATIVE); GLUCOSE, URINE (UA) NEGATIVE (NEGATIVE); KETONES,URINE (UA) NEGATIVE (NEGATIVE); LEUKOCYTE ESTERASE, URINE NEGATIVE (NEGATIVE); NITRITE,URINE NEGATIVE (NEGATIVE); OCCULT BLOOD,URINE TRACE-INTA (NEGATIVE); PH,URINE 6.5 PH (5.0-7.5); PROTEIN,URINE NEGATIVE (NEGATIVE); UROBILINOGEN,URINE 0.2 (NORMAL) E.U./dL (NORMAL)
[2022-04-04 23:00] LABS: ALBUMIN/GLOBULIN RATIO 1.2 (1.0-2.2); BILIRUBIN,TOTAL 0.3 mg/dL (0.2-1.0); CALCIUM 9.6 mg/dL (8.5-10.3); CREATININE 0.6 mg/dL (0.4-1.0); MAGNESIUM 1.8 mg/dL (1.7-2.8); POTASSIUM 3.4 mmol/L (3.5-5.0); TOTAL PROTEIN 7.3 g/dL (6.7-8.2)
[2022-04-04 23:06] LABS: CLARITY,URINE CLEAR (CLEAR)
--- NOTE | 2022-04-04 23:52 | XRAY Report ---
PROCEDURE: Chest 1 View X-Ray INDICATIONS: CP TECHNIQUE: One view of the chest was acquired. COMPARISON: 03/20/2021. FINDINGS: Surgical changes and devices: None. Lungs and pleura: No pleural effusions or pneumothorax. Lungs are clear. Mediastinum: Mediastinal contours appear normal. Heart size is normal. Bones and chest wall: No suspicious bony lesions. Overlying soft tissues appear unremarkable. IMPRESSION: 1. No acute cardiopulmonary disease. Reviewed by: Drake Colon MD on 04/04/2022 11:51 PM PDT Approved by: Drake Colon MD on 04/04/2022 11:51 PM PDT Station ID: [id number]
[2022-04-04] MEDS ORDERED: MORPHINE 2 MG/ML CARPUJECT IVP STA (23:57)
[2022-04-04] MEDS ORDERED: ONDANSETRON 4 MG/2 ML VIAL IVP STA (23:57)
--- NOTE | 2022-04-05 00:03 | ED Physician Documentation ---
History of Present Illness - Stated complaint Stated Complaint: BACK/CHEST PAIN - Chief complaint Chief Complaint: Cardiac - History obtained from History obtained from: Patient - Additonal information Additional information: Patient is a 22-year-old female who is approximately 11 weeks presenting for evaluation of pain and spasming sensation to her back with radiation to her chest that started about an hour and a half ago. She reports swimming earlier today but denies other strenuous activity. She has established OB care with a doctor in [place] and has had ultrasounds for this with confirmed IUP. She denies vaginal discharge, abdominal cramping, vaginal bleeding.She reports the pain is worse with certain movements. She denies difficulty breathing. She reports having a panic attack 9 months ago and it causing an abnormal heart rhythm that required medication that she received at [facility]. She was never started on medication after this. She denies dizziness or lightheadedness. She has had nausea and vomiting with the and is taking Unisom, B6, Zofran and prenatals. Review of Systems Constitutional: denies: Fever Nose: denies: Congestion Cardiac: reports: Chest pain / pressure Respiratory: denies: Dyspnea, Cough GI: reports: Nausea. denies: Abdominal Pain : denies: Dysuria Skin: denies: Rash Musculoskeletal: reports: Back pain. 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 : None HEENT: Chronic vision loss Psych: Depression Musculoskeletal: None Derm: None - Past Surgical History Past Surgical History: No - Present Medications Home Medications: Ambulatory Orders Medication Instructions Recorded Confirmed HYDROcod/ACETAM 5/325 [[place] 5/325] 1 - 2 ea PO Q6H PRN #14 tablet 11/20/21 Ondansetron Odt [Zofran] 4 mg TL Q6H PRN #10 tablet 11/20/21 HYDROcod/ACETAM 5/325 [[place] 5/325] 1 - 2 tablet PO Q6H PRN #14 tablet 11/23/21 Ibuprofen [Motrin] 1 tablet PO Q8H PRN #30 tablet 11/23/21 - Allergies Allergies/Adverse Reactions: Allergies Allergy/AdvReac Type Severity Reaction Status Date / Time Penicillins Allergy Anaphylaxis Verified 04/04/22 22:10 hydromorphone AdvReac Hallucinati Verified 04/04/22 22:10 ons - Social History Does the pt smoke?: No Smoking Status: Never smoker Does the pt drink ETOH?: No Does the pt have substance abuse?: No - Immunizations Immunizations are current?: Yes - POLST Patient has POLST: No PD ED PE NORMAL - General General: Alert and oriented X 3, No acute distress, Well developed/nourished - HEENT HEENT: Atraumatic - Neck Neck: Supple, no meningeal sign, No bony TTP - Cardiac Cardiac: RRR, No murmur, Strong equal pulses, Other (Midsternal tenderness to palpation) - Respiratory Respiratory: No respiratory distress, Clear bilaterally - Abdomen Abdomen: Normal bowel sounds, Soft, Non tender - Back Back: No spinal TTP, Other (Generalized tenderness through mid and lower back on palpation with no deformities, redness or Swelling.) - Derm Derm: Warm and dry, No rash - Extremities Extremities: No edema, Other (Distal pulses intact) - Neuro Neuro: Alert and oriented X 3, No motor deficit, No sensory deficit, Normal speech Results - Vitals Vitals: Vital Signs - 24 hr 04/04/22 04/04/22 04/05/22 22:03 22:45 00:19 Temperature 36.4 C L Heart Rate 66 66 62 Respiratory 18 21 19 Rate Blood Pressure 116/60 114/70 114/54 L O2 Saturation 99 100 100 Oxygen O2 Source Room air - EKG (time done) 2325 Rate: Rate (enter#) (56) Rhythm: Sinus bradycardia Wiley: Normal Ischemia: No: ST elevation c/w ischemia - Labs Labs: Laboratory Tests 04/04/22 04/04/22 04/04/22 22:35 22:35 22:35 WBC 7.3 RBC 3.86 L Hgb 11.7 L Hct 34.1 L MCV 88.3 MCH 30.3 MCHC 34.3 RDW 12.7 Plt Count 210 MPV 10.8 Neut # (Auto) 4.7 Lymph # (Auto) 1.9 [place] # (Auto) 0.6 Eos # (Auto) 0.1 Baso # (Auto) 0.0 Absolute Nucleated RBC 0.00 Nucleated RBC % 0.0 Sodium 136 Potassium 3.4 L Chloride 102 Carbon Dioxide 26 Anion Gap 8.0 BUN 11 Creatinine 0.6 Estimated GFR (MDRD) 123 Glucose 101 H Calcium 9.6 Magnesium 1.8 Total Bilirubin 0.3 AST 15 ALT 15 Alkaline Phosphatase 30 L Troponin I High Sens < 2.3 L Total Protein 7.3 Albumin 4.0 Globulin 3.3 Albumin/Globulin Ratio 1.2 Urine Color Urine Clarity Urine pH Ur Specific [place] Urine Protein Urine Glucose (UA) Urine Ketones Urine Occult Blood Urine Nitrite Urine Bilirubin Urine Urobilinogen Ur Leukocyte Esterase Ur Microscopic Review Urine Culture Comments 04/04/22 22:48 WBC RBC Hgb Hct MCV MCH MCHC RDW Plt Count MPV Neut # (Auto) Lymph # (Auto) [place] # (Auto) Eos # (Auto) Baso # (Auto) Absolute Nucleated RBC Nucleated RBC % Sodium Potassium Chloride Carbon Dioxide Anion Gap BUN Creatinine Estimated GFR (MDRD) Glucose Calcium Magnesium Total Bilirubin AST ALT Alkaline Phosphatase Troponin I High Sens Total Protein Albumin Globulin Albumin/Globulin Ratio Urine Color YELLOW Urine Clarity CLEAR Urine pH 6.5 Ur Specific [place] <=1.005 Urine Protein NEGATIVE Urine Glucose (UA) NEGATIVE Urine Ketones NEGATIVE Urine Occult Blood TRACE-INTA Urine Nitrite NEGATIVE Urine Bilirubin NEGATIVE Urine Urobilinogen 0.2 (NORMAL) Ur Leukocyte Esterase NEGATIVE Ur Microscopic Review NOT INDICATED Urine Culture Comments NOT INDICATED Procedures - Bedside sono Bedside sono by EMP: Bedside ultrasound was performed to evaluate fetus. IUP Confirmed with positive cardiac activity (HR ~130bpm) PD MEDICAL DECISION MAKING - ED course Complexity details: reviewed results, re-evaluated patient, d/w patient ED course: Patient is an otherwise healthy 22-year-old female who is approximate 11 weeks presenting for evaluation of discomfort to the back and chest. EKG was obtained with a sinus rhythm. High-sensitivity troponin is negative and I doubt symptoms are related to ACS. Aortic dissection and pulmonary embolism are also unlikely. Patient is overall very well-appearing, during multiple reevaluations appears to be comfortable in bed. No abdominal tenderness noted on exam. Urine analysis is negative for infection and do not think patient has symptoms of a stone or pyelo. Patient did have some improvement with lidocaine. She did try Tylenol prior to arrival. Patient did request more for pain during her evaluation and did offer 1 dose of pain medication. However her pain is very reproducible and I suspect a musculoskeletal etiology. Discussed continuing with supportive care and follow-up with OB doctor.She is advised on return precautions. Departure - Departure Disposition: 01 Home, Self Care Clinical Impression: Back ache Qualifiers: Back pain location: low back pain Chronicity: acute Back pain laterality: bilateral Sciatica presence: without sciatica Qualified Code(s): M54.50 - Low back pain, unspecified Chest pain Qualifiers: Chest pain type: other chest pain Qualified Code(s): R07.89 - Other chest pain Condition: Stable Instructions: ED Chest Pain Atypical Unkn Cause, ED Neck Back Pain General Comments: You were evaluated for pain to your back as well as to your chest. Your heart was evaluated and does not show any significant abnormalities. Your electrolytes were normal and your other labs were reassuring. Your chest x-ray was clear. The exact cause of your pain is unclear at this time but does not appear to be life-threatening. We did do a quick ultrasound at the bedside and we are able to see the baby Which had a good heartbeat. Please continue with using Tylenol, ice, heat and lidocaine patches as needed for pain. If your pain worsens or you develop any new symptoms please return to the emergency department for evaluation. Otherwise, please follow-up with your OB doctor. Discharge Date/Time: 04/05/22 00:40
[2022-04-05 00:19] VITALS: BP 114/54
== END 2022-04-05 00:40 | disposition home or self-care (01) ==
LOC: ED 21:53
DX: O26.891 Other specified pregnancy related conditions, first trimester (principal); R07.9 Chest pain, unspecified; O99.891 Other specified diseases and conditions complicating pregnancy; M54.50 Low back pain, unspecified; Z3A.11 11 weeks gestation of pregnancy
CPT/HCPCS: 36415; 71045; 80053; 81003; 83735; 84484; 85025; 93005; 96374; 96375; 99282; 99284; A9270; 81001; 87086

== ENCOUNTER 2022-12-08 07:37 | Emergency (ER) | payer OTHER ==
[2022-12-08 07:46] VITALS: BP 119/75
[2022-12-08] MEDS ORDERED: AZITHROMYCIN 250 MG TABLET PO STA (08:00)
[2022-12-08] MEDS ORDERED: IBUPROFEN 800 MG TABLET PO STA (08:00)
[2022-12-08] MEDS ORDERED: CETIRIZINE 10 MG TABLET PO STA (08:05)
--- NOTE | 2022-12-08 08:07 | ED Physician Documentation ---
PD HPI HEENT - Stated complaint Stated Complaint: RT PRESSURE/PX - Chief complaint Chief Complaint: Heent - History obtained from History obtained from: Patient - Additional information Additional information: Patient is a 22-year-old female presenting for evaluation of right ear pain that has been present for the past 2 days and feels like an intense pressure. She has taken ibuprofen and acetaminophen at home without any significant improvement. She feels that her ear wants to pop and she has not been able to do so despite trying to chew gum and yawn. She has nasal congestion. She denies fever, chest pain, difficulty breathing, abdominal pain. She is breast-feeding. Her has similar symptoms at home. 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 : None HEENT: Chronic vision loss Psych: Depression Musculoskeletal: None Derm: None - Past Surgical History Past Surgical History: No - Present Medications Home Medications: Ambulatory Orders Medication Instructions Recorded Confirmed HYDROcod/ACETAM 5/325 [[place] 5/325] 1 - 2 ea PO Q6H PRN #14 tablet 11/20/21 Ondansetron Odt [Zofran] 4 mg TL Q6H PRN #10 tablet 11/20/21 HYDROcod/ACETAM 5/325 [[place] 5/325] 1 - 2 tablet PO Q6H PRN #14 tablet 11/23/21 Ibuprofen [Motrin] 1 tablet PO Q8H PRN #30 tablet 11/23/21 Azithromycin [Zithromax] 1 tab PO DAILY #4 tab 12/08/22 - Allergies Allergies/Adverse Reactions: Allergies Allergy/AdvReac Type Severity Reaction Status Date / Time Penicillins Allergy Anaphylaxis Verified 12/08/22 07:46 hydromorphone AdvReac Hallucinati Verified 12/08/22 07:46 ons - Social History Does the pt smoke?: No Smoking Status: Never smoker Does the pt drink ETOH?: No Does the pt have substance abuse?: No - Immunizations Immunizations are current?: Yes - POLST Patient has POLST: No PD ED PE NORMAL - General General: Alert and oriented X 3, No acute distress, Well developed/nourished - HEENT HEENT: Atraumatic, Moist mucous membranes, Pharynx benign, Other (Right ear with effusion, bulging, cloudy, TM intact; L TM normal) - Neck Neck: Supple, no meningeal sign - Cardiac Cardiac: RRR - Respiratory Respiratory: No respiratory distress, Clear bilaterally - Derm Derm: Warm and dry - Neuro Neuro: Normal speech Results - Vitals Vitals: Vital Signs - 24 hr 12/08/22 07:43 Temperature 36.6 C Heart Rate 68 Respiratory 20 Rate Blood Pressure 119/75 O2 Saturation 100 Oxygen O2 Source Room air PD Medical Decision Making - ED course ED course: Patient presenting for evaluation of right earache. Evidence of right otitis media. Well appearing/ Vital signs are stable.Discussed options for treatment including antibiotics.In regards to the feeling of pressure recommended antihistamines And anti-inflammatories. Patient is breast-feeding so did not recommend decongestants as this may affect her supply. Patient Comfortable with treatment plan advised on concerning symptoms to return for. Departure - Departure Disposition: 01 Home, Self Care Clinical Impression: Right otitis media Condition: Stable Instructions: ED Otitis Media Acute Adult Prescriptions: Azithromycin [Zithromax] 1 tab PO DAILY #4 tab Comments: You have fluid built up behind your right ear which has now caused an ear infection. I have started you on an antibiotic called azithromycin. You received the first dose today and can take the next dose tomorrow. You could also continue with using acetaminophen or ibuprofen as needed for discomfort.I have also given you a dose of Zyrtec today which is an antihistamine and may also help relieve the pressure. You can continue with taking Zyrtec 10 mg daily as needed if you continue to feel fullness/pressure in the ear. I would expect your symptoms to get better in the next 24 to 48 hours. There are stronger decongestants available such as Sudafed but this may affect your milk supply with breast-feeding. Your prescription was sent to [facility] in [place]. Discharge Date/Time: 12/08/22 08:18
--- OUTSIDE RECORDS SUMMARY | 2022-12-08 08:16 | EXTERNAL MEDICAL SUMMARY RPT | Continuity of Care Document ---
:2000 Author Organization [facility] Address [address] [place] [address] Phone Care Team Providers Name Role Phone Unavailable Unavailable Unavailable Roberto Mota Md Unavailable Unavailable Omid Fernández Unavailable Unavailable Urmila Silverman EnpChana Unavailable Unavailable Edie Rn, Allison Unavailable Unavailable Allergies and Intolerances date description facility type (no date) [facility] (unknown) Encounters No information. Functional Status No information. Immunizations No information. Medications date description facility 2022-10-19 00:00 cephalexin All 2022-09-10 00:00 bupropion hcl All 2022-09-11 00:00 bupropion hcl All 2022-10-19 00:00 bupropion hcl All 2022-10-21 00:00 bupropion hcl All 2022-09-10 00:00 bupropion hcl All 2022-09-11 00:00 bupropion hcl All 2022-10-19 00:00 bupropion hcl All 2022-10-21 00:00 bupropion hcl All 2022-10-19 00:00 amoxicillin-pot clavulanate All 2022-10-19 00:00 amoxicillin-pot clavulanate All 2022-10-19 00:00 cephalexin All 2022-10-11 00:00 Oxycodone [facility] 2022-10-10 00:00 Sumatriptan Succinate [facility] 2022-10-11 00:00 Ibuprofen [facility] 2022-10-10 00:00 Albuterol Sulfate [facility] 2022-09-10 00:00 bupropion hcl All 2022-09-11 00:00 bupropion hcl All 2022-10-19 00:00 bupropion hcl All 2022-10-21 00:00 bupropion hcl All 2022-10-19 00:00 cephalexin All 2022-10-19 00:00 [facility] albuterol sulfate All 2022-09-10 00:00 albuterol sulfate All 2022-09-10 00:00 albuterol sulfate All 2022-09-10 00:00 albuterol sulfate All 2022-09-10 00:00 albuterol sulfate All 2022-09-10 00:00 albuterol sulfate All 2022-10-19 00:00 amoxicillin-pot clavulanate All 2022-09-10 00:00 bupropion hcl All 2022-09-11 00:00 bupropion hcl All 2022-10-19 00:00 bupropion hcl All 2022-10-21 00:00 bupropion hcl All 2022-09-10 00:00 albuterol sulfate All 2022-09-10 00:00 albuterol sulfate All 2022-09-10 00:00 albuterol sulfate All 2022-10-10 00:00 Sumatriptan Succinate [facility] 2022-09-10 00:00 albuterol sulfate All 2022-09-10 00:00 albuterol sulfate All 2022-09-10 00:00 albuterol sulfate All 2022-10-19 00:00 amoxicillin-pot clavulanate [facility]22[facility]10-10 [facility]:00 bupropion hcl All 2022-09-11 00:00 bupropion hcl All 2022-10-19 00:00 bupropion hcl All 2022-10-21 00:00 bupropion hcl All Problems date description facility 2022-09-10 00:00 Acute upper respiratory infection All 2022-09-10 00:00 Acute upper respiratory infection All 2022-09-10 00:00 Acute upper respiratory infection All 2022-09-10 00:00 Acute upper respiratory infection, unsp ecified All 2022-09-10 00:00 Acute upper respiratory infection, unsp ecified All 2022-09-10 00:00 Acute upper respiratory infection, unsp ecified All 2022-10-10 00:00 Anxiety and depression [facility] 2022-10-15 14:41 Other mental disorders complicating [facility] 2022-10-15 15:00 Other mental disorders complicating [facility] 2022-10-19 00:00 Inflammation of skin and/or subcutaneou s tissue All 2022-10-19 00:00 Nonpurulent mastitis associated with chi ldbirth, All unspecified as to episode of care or not applicable 2022-10-19 00:00 Nonpurulent mastitis associated with la ctation All Procedures date description facility 2022-10-10 00:00 Delivery of Products of Conception, Ext [facility] 2022-09-10 00:00 Visit Code Hold All 2022-09-10 00:00 Visit Code Hold All 2022-09-10 00:00 Visit Code Hold All 2022-10-19 00:00 Visit Code Hold All 2022-09-10 00:00 COVID, FLU A+B Antigen (In Clinic Free Test) All 2022-09-10 00:00 COVID, FLU A+B Antigen (In Clinic Free Test) All 2022-09-10 00:00 COVID, FLU A+B Antigen (In Clinic Free Test) All Results/Labs test date author facility value unit interpret ation Result panel 1 ([facility] (no [facility]) Result panel 2 (unknown) (no date) ([facility]) Result panel 3 (unknown) (no date) (unknown[facility]) Result panel 4 (unknown) (no date) (unknown[facility]) Result panel 5 (unknown) (no date) (unknown[facility]) Result panel 6 (unknown) (no date) (unknown[facility]) Result panel 7 (unknown) (no date) (unknown[facility]) Result panel 8 (unknown) (no date) (unknown[facility]) Result panel 9 (unknown) (no date) (unknown[facility]) Result panel 10 (unknown) (no date) (unknown[facility]) Result panel 11 (unknown) (no date) (unknown[facility]) Result panel 12 (unknown) (no date) (unknown[facility]) Result panel 13 (unknown) (no date) (unknown[facility]) Result panel 14 (unknown) (no date) (unknown[facility]) Result panel 15 (unknown) (no date) (unknown[facility]) Result panel 16 (unknown) (no date) (unknown[facility]) Result panel 17 (unknown) (no date) (unknown[facility]) Result panel 18 (unknown) (no date) (unknown[facility]) Result panel 19 (unknown) (no date) (unknown[facility]) Result panel 20 (unknown) (no date) (unknown[facility]) Result panel 21 (unknown) (no date) (unknown[facility]) Result panel 22 (unknown) (no date) (unknown[facility]) Result panel 23 (unknown) (no date) (unknown[facility]) Result panel 24 (unknown) (no date) (unknown[facility]) Result panel 25 (unknown) (no date) (unknown[facility]) Result panel 26 (unknown) (no date) (unknown[facility]) Result panel 27 (unknown) (no date) (unknown[facility]) Result panel 28 (unknown) (no date) (unknown[facility]) Result panel 29 (unknown) (no date) (unknown[facility]) Result panel 30 (unknown) (no date) (unknown[facility]) Result panel 31 (unknown) (no date) (unknown[facility]) Result panel 32 (unknown) (no date) (unknown[facility]) Result panel 33 (unknown) (no date) (unknown[facility]) Result panel 34 (unknown) (no date) (unknown[facility]) Result panel 35 (unknown) (no date) (unknown[facility]) Result panel 36 (unknown) (no date) (unknown[facility]) Result panel 37 (unknown) (no date) (unknown[facility]) Result panel 38 (unknown) (no date) (unknown[facility]) Result panel 39 (unknown) (no date) (unknown[facility]) Result panel 40 (unknown) (no date) (unknown[facility]) Result panel 41 (unknown) (no date) (unknown[facility]) Result panel 42 (unknown) (no date) (unknown[facility]) Result panel 43 (unknown) (no date) (unknown[facility]) Result panel 44 (unknown) (no date) (unknown[facility]) Result panel 45 (unknown) (no date) (unknown[facility]) Result panel 46 (unknown) (no date) (unknown[facility]) Result panel 47 (unknown) (no date) (unknown[facility]) Result panel 48 (unknown) (no date) (unknown[facility]) Result panel 49 (unknown) (no date) (unknown[facility]) Result panel 50 (unknown) (no date) (unknown[facility]) Result panel 51 (unknown) (no date) (unknown[facility]) Result panel 52 (unknown) (no date) (unknown[facility]) Result panel 53 (unknown) (no date) (unknown[facility]) Result panel 54 (unknown) (no date) (unknown[facility]) Result panel 55 (unknown) (no date) (unknown[facility]) Result panel 56 (unknown) (no date) (unknown[facility]) Result panel 57 (unknown) (no date) (unknown[facility]) Result panel 58 (unknown) (no date) (unknown[facility]) Result panel 59 (unknown) (no date) (unknown[facility]) Result panel 60 (unknown) (no date) (unknown[facility]) Result panel 61 (unknown) (no date) (unknown[facility]) Result panel 62 (unknown) (no date) (unknown[facility]) Result panel 63 (unknown) (no date) (unknown[facility]) Result panel 64 (unknown) (no date) (unknown[facility]) Result panel 65 (unknown) (no date) (unknown[facility]) Result panel 66 (unknown) (no date) (unknown[facility]) Result panel 67 (unknown) (no date) (unknown[facility]) Result panel 68 (unknown) (no date) (unknown[facility]) Result panel 69 (unknown) (no date) (unknown[facility]) Result panel 70 (unknown) (no date) (unknown[facility]) Result panel 71 (unknown) (no date) (unknown[facility]) Result panel 72 (unknown) (no date) (unknown[facility]) Result panel 73 (unknown) (no date) (unknown[facility]) Result panel 74 (unknown) (no date) (unknown[facility]) Result panel 75 (unknown) (no date) (unknown[facility]) Result panel 76 (unknown) (no date) (unknown[facility]) Result panel 77 (unknown) (no date) (unknown[facility]) Result panel 78 (unknown) (no date) (unknown[facility]) Result panel 79 (unknown) (no date) (unknown[facility]) Result panel 80 (unknown) (no date) (unknown[facility]) Result panel 81 (unknown) (no date) (unknown[facility]) Result panel 82 (unknown) (no date) (unknown[facility]) Result panel 83 (unknown) (no date) (unknown[facility]) Result panel 84 (unknown) (no date) (unknown[facility]) Result panel 85 (unknown) (no date) (unknown[facility]) Result panel 86 (unknown) (no date) (unknown[facility]) Result panel 87 (unknown) (no date) (unknown[facility]) Result panel 88 (unknown) (no date) (unknown[facility]) Result panel 89 (unknown) (no date) (unknown[facility]) Result panel 90 (unknown) (no date) (unknown[facility]) Result panel 91 (unknown) (no date) (unknown[facility]) Result panel 92 (unknown) (no date) (unknown[facility]) Result panel 93 (unknown) (no date) (unknown[facility]) Result panel 94 (unknown) (no date) (unknown[facility]) Result panel 95 (unknown) (no date) (unknown[facility]) Result panel 96 (unknown) (no date) (unknown[facility]) Result panel 97 (unknown) (no date) (unknown[facility]) Result panel 98 (unknown) (no date) (unknown[facility]) Result panel 99 (unknown) (no date) (unknown[facility]) Result panel 100 (unknown) (no date) (unknown[facility]) Result panel 101 (unknown) (no date) (unknown[facility]) Result panel 102 (unknown) (no date) (unknown[facility]) Result panel 103 (unknown) (no date) (unknown[facility]) Result panel 104 (unknown) (no date) (unknown[facility]) Result panel 105 (unknown) (no date) (unknown[facility]) Result panel 106 (unknown) (no date) (unknown) [facility]) Result panel 107 (unknown) (no date) (unknown) [facility]) Result panel 108 (unknown) (no date) (unknown[facility]) Result panel 109 (unknown) (no date) (unknown[facility]) Result panel 110 (unknown) (no date) (unknown) [facility]) Result panel 111 (unknown) (no date) (unknown) [facility]) Result panel 112 (unknown) (no date) (unknown[facility]) Result panel 113 (unknown) (no date) (unknown[facility]) Result panel 114 (unknown) (no date) (unknown[facility]) Result panel 115 (unknown) (no date) (unknown) [facility]) Result panel 116 (unknown) (no date) (unknown) [facility]) Result panel 117 (unknown) (no date) (unknown) [facility]) Result panel 118 (unknown) (no date) (unknown) [facility]) Result panel 119 (unknown) (no date) (unknown) [facility]) Result panel 120 (unknown) (no date) (unknown) [facility]) Result panel 121 (unknown) (no date) (unknown) [facility]) Result panel 122 (unknown) (no date) (unknown[facility]) Result panel 123 (unknown) (no (unknown) (unknown) (no value) (units (unk nown) date) unknown) (unknown) (no (unknown) (unknown) Age/Sex: 22 / F (units (unknown) date) unknown) (unknown) (no (unknown) (unknown) Allergies (units (unkn own) date) unknown) (unknown) (no (unknown) (unknown) Allergy/AdvReac (units (unknown) date) Type Severity unknown) Reaction Status Date / Time (unknown) (no (unknown) (unknown) Blood Type A (units (u nknown) date) Positive 05/26/22 unknown) 08:48 (unknown) (no (unknown) (unknown) 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) (unknown) (no (unknown) (unknown) : 2000 (units (unknown) date) Acct:[id number] unknown) (unknown) (no (unknown) (unknown) Date Patient (units (u nknown) date) Seen: 10/10/22 unknown) (unknown) (no (unknown) (unknown) Date of Service: (units (unknown) date) 10/10/22 unknown) (unknown) (no (unknown) (unknown) Date of (units (unkno wn) date) admission: unknown) 10/10/22 (unknown) (no (unknown) (unknown) Date/Time (units (unkn own) date) unknown) (unknown) (no (unknown) (unknown) Hematocrit 33.4 (units (unknown) date) % (36-46) L unknown) 05/26/22 08:48 (unknown) (no (unknown) (unknown) Hemoglobin 11.7 (units (unknown) date) g/dL (12.0-16.0) unknown) L 05/26/22 08:48 (unknown) (no (unknown) (unknown) History of (units (unk nown) date) Present Condition unknown) (unknown) (no (unknown) (unknown) Home Medications (units (unknown) date) and Allergies unknown) (unknown) (no (unknown) (unknown) Home Medications (units (unknown) date) unknown) (unknown) (no (unknown) (unknown) [facility] (units (unknown) date) [address] unknown) [place] [address] (unknown) (no (unknown) (unknown) Last OB Lab (units (un known) date) Results: unknown) (unknown) (no (unknown) (unknown) [id number] (units (unk nown) date) unknown) (unknown) (no (unknown) (unknown) Medication (units (unk nown) date) Instructions unknown) Recorded Confirmed Type (unknown) (no (unknown) (unknown) Meds (units (unkno wn) date) unknown) (unknown) (no (unknown) (unknown) OB HPI (units (unkno wn) date) unknown) (unknown) (no (unknown) (unknown) 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 + (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 (unknown) date) Physical unknown) (unknown) (no (unknown) (unknown) PFSH (units (unkno wn) date) unknown) (unknown) (no (unknown) (unknown) Patient: (units (unkno wn) date) Elma Booker unknown) R MR#: (unknown) (no (unknown) (unknown) Penicillins (units (un known) date) Allergy Severe unknown) Anaphylaxis Verified 01/16/22 16:18 (unknown) (no (unknown) (unknown) Preadmission (units (u nknown) date) Labs unknown) (unknown) (no (unknown) (unknown) Provider: (units (unkn own) date) Britney Wagner unknown) Indira MENDEZ (unknown) (no (unknown) (unknown) Signed By: (units (unk nown) date) unknown) (unknown) (no (unknown) (unknown) Smoking Status: (units (unknown) date) Never smoker unknown) (unknown) (no (unknown) (unknown) Social History (units (unknown) date) (Reviewed unknown) 08/30/22 @ 15:56 by Lindsey Santamaria DO) (unknown) (no (unknown) (unknown) Time Patient (units (u nknown) date) Seen: 03:04 unknown) (unknown) (no (unknown) (unknown) capsule (units (unkno wn) date) (Macrobid) unknown) (unknown) (no (unknown) (unknown) monohydrate/macr (units (unknown) date) ocrystals 100 mg unknown) (unknown) (no (unknown) (unknown) nitrofurantoin (units (unknown) date) 100 mg PO BID #[id number] unknown) caps 08/30/22 Rx Result panel 124 (unknown) (no date) (unknown) (unknown) 0 /ul (unkn own) (unknown) (no date) (unknown) (unknown) 0 /ul (unkn own) (unknown) (no date) (unknown) (unknown) 0.1 % (unkn own) (unknown) (no date) (unknown) (unknown) 0.5 % (unkn own) (unknown) (no date) (unknown) (unknown) 14.8 % (unkn own) (unknown) (no date) (unknown) (unknown) 158 x10 3/ul (unkn own) (unknown) (no date) (unknown) (unknown) 1700 /ul (unkn own) (unknown) (no date) (unknown) (unknown) 22.7 % (unkn own) (unknown) (no date) (unknown) (unknown) 27.7 pg (unkn own) (unknown) (no date) (unknown) (unknown) 28.9 % (unkn own) (unknown) (no date) (unknown) (unknown) 3.46 x10 6/ul (unkn own) (unknown) (no date) (unknown) (unknown) 33.1 % (unkn own) (unknown) (no date) (unknown) (unknown) 5300 /ul (unkn own) (unknown) (no date) (unknown) (unknown) 600 /ul (unkn own) (unknown) (no date) (unknown) (unknown) 69.3 % (unkn own) (unknown) (no date) (unknown) (unknown) 7.4 % (unkn own) (unknown) (no date) (unknown) (unknown) 7.7 x10 3/ul (unkn own) (unknown) (no date) (unknown) (unknown) 83.6 fl (unkn own) (unknown) (no date) (unknown) (unknown) 9.6 g/dl (unkn own) Result panel 125 (unknown) (no date) (unknown) (unknown) Negative (units (unkn own) unknown) (unknown) (no date) (unknown) (unknown) Negative (units (unkn own) unknown) Result panel 126 (unknown) (no date) (unknown) (unknown) A Positive (units (un known) unknown) (unknown) (no date) (unknown) (unknown) NEGATIVE (units (unkn own) unknown) Result panel 127 (unknown) (no date) (unknown) (unknown) (no value) (units (un known) unknown) (unknown) (no date) (unknown) (unknown) Age/Sex: 22 / (units (unknown) F unknown) (unknown) (no date) (unknown) (unknown) : (units (unkn own) 2000 unknown) Acct:[id number] (unknown) (no date) (unknown) (unknown) Date of (units (unkn own) Service: unknown) 10/10/22 (unknown) (no date) (unknown) (unknown) Delivery (units (unkn own) date: 10/10/22 unknown) (unknown) (no date) (unknown) (unknown) [place] (units (unkn own) [place] [address] [address] (unknown) (no date) (unknown) (unknown) Labor + (units (unkn own) Delivery unknown) (unknown) (no date) (unknown) (unknown) [id number] (units (un known) unknown) (unknown) (no date) (unknown) (unknown) 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 (units (unkn own) Procedure Note unknown) (unknown) (no date) (unknown) (unknown) Patient: (units (unkn own) Chayito Booker unknown) nn R MR#: (unknown) (no date) (unknown) (unknown) Provider: (units (unk nown) Britney Wagner unknown) Indira MENDEZ (unknown) (no date) (unknown) (unknown) Signed By: (units (un known) unknown) Result panel 128 (unknown) (no (unknown) (unknown) (no value) (units (unk nown) date) unknown) (unknown) (no (unknown) (unknown) 10/10/22 03:06 (units (unknown) date) unknown) (unknown) (no (unknown) (unknown) Age/Sex: 22 / F (units (unknown) date) unknown) (unknown) (no (unknown) (unknown) Allergies (units (unkn own) date) unknown) (unknown) (no (unknown) (unknown) Allergy/AdvReac (units (unknown) date) Type Severity unknown) Reaction Status Date / Time (unknown) (no (unknown) (unknown) Antibody Screen (units (unknown) date) Negative 10/10/22 unknown) 03:06 (unknown) (no (unknown) (unknown) Blood Type A (units (u nknown) date) Positive 10/10/22 unknown) 03:06 (unknown) (no (unknown) (unknown) 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) (unknown) (no (unknown) (unknown) : 2000 (units (unknown) date) Acct:[id number] unknown) (unknown) (no (unknown) (unknown) Date Patient (units (u nknown) date) Seen: 10/10/22 unknown) (unknown) (no (unknown) (unknown) Date of Last (units (u nknown) date) Menstrual Period: unknown) 01/17/22 (unknown) (no (unknown) (unknown) Date of Service: (units (unknown) date) 10/10/22 unknown) (unknown) (no (unknown) (unknown) Date of (units (unkno wn) date) admission: unknown) 10/10/22 (unknown) (no (unknown) (unknown) Date/Time (units (unkn own) date) unknown) (unknown) (no (unknown) (unknown) Elemental (units (unkn own) date) Iron-90 324 mg PO unknown) DAILY 10/10/22 10/10/22 History (unknown) (no (unknown) (unknown) Estimated Date (units (unknown) date) of Delivery: unknown) 10/24/22 (unknown) (no (unknown) (unknown) Estimated (units (unkn own) date) Gestational Age unknown) (weeks): 38 (unknown) (no (unknown) (unknown) External History (units (unknown) date) unknown) (unknown) (no (unknown) (unknown) : 7 (units (unk nown) date) unknown) (unknown) (no (unknown) (unknown) Hematocrit 28.9 (units (unknown) date) % (36-46) L unknown) 10/10/22 03:06 (unknown) (no (unknown) (unknown) Hemoglobin 9.6 (units (unknown) date) g/dL (12.0-16.0) unknown) L 10/10/22 03:06 (unknown) (no (unknown) (unknown) History of (units (unk nown) date) Present Condition unknown) (unknown) (no (unknown) (unknown) Home Medications (units (unknown) date) and Allergies unknown) (unknown) (no (unknown) (unknown) Home Medications (units (unknown) date) unknown) (unknown) (no (unknown) (unknown) [facility] (units (unknown) date) [address] unknown) [place] [address] (unknown) (no (unknown) (unknown) Labs (units (unkno wn) date) unknown) (unknown) (no (unknown) (unknown) Last OB Lab (units (un known) date) Results: unknown) (unknown) (no (unknown) (unknown) [id number] (units (unk nown) date) unknown) (unknown) (no (unknown) (unknown) Medication (units (unk nown) date) Instructions unknown) Recorded Confirmed Type (unknown) (no (unknown) (unknown) Meds (units (unkno wn) date) unknown) (unknown) (no (unknown) (unknown) OB HPI (units (unkno wn) date) unknown) (unknown) (no (unknown) (unknown) 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 + (units (unknown) date) Physical unknown) (unknown) (no (unknown) (unknown) Objective (units (unkn own) date) unknown) (unknown) (no (unknown) (unknown) PFSH (units (unkno wn) date) unknown) (unknown) (no (unknown) (unknown) Para: 2 (units (unkno wn) date) unknown) (unknown) (no (unknown) (unknown) Patient: (units (unkno wn) date) Jodi Bookerlynn unknown) R MR#: (unknown) (no (unknown) (unknown) Penicillins (units (un known) date) Allergy Severe unknown) Anaphylaxis Verified 01/16/22 16:18 (unknown) (no (unknown) (unknown) Preadmission (units (u nknown) date) Labs unknown) (unknown) (no (unknown) (unknown) Provider: (units (unkn own) date) Britney Wagner unknown) Indira MENDEZ (unknown) (no (unknown) (unknown) Result Diagrams: (units (unknown) date) unknown) (unknown) (no (unknown) (unknown) Signed By: (units (unk nown) date) unknown) (unknown) (no (unknown) (unknown) Smoking Status: (units (unknown) date) Never smoker unknown) (unknown) (no (unknown) (unknown) Social History (units (unknown) date) (Reviewed unknown) 08/30/22 @ 15:56 by Lindsey Santamaria DO) (unknown) (no (unknown) (unknown) Time Patient (units (u nknown) date) Seen: 03:04 unknown) (unknown) (no (unknown) (unknown) [Embedded Image (units (unknown) date) Not Available] unknown) (unknown) (no (unknown) (unknown) capsule (units (unkno wn) date) (Macrobid) unknown) (unknown) (no (unknown) (unknown) monohydrate/macr (units (unknown) date) ocrystals 100 mg unknown) (unknown) (no (unknown) (unknown) nitrofurantoin (units (unknown) date) 100 mg PO BID #9 unknown) caps 08/30/22 Rx (unknown) (no (unknown) (unknown) promethazine 25 (units (unknown) date) mg tablet 25 mg unknown) PO 10/10/22 History Result panel 129 (unknown) (no (unknown) (unknown) (no value) (units (unk nown) date) unknown) (unknown) (no (unknown) (unknown) -: Antibody (units (un known) date) screen: negative, unknown) HBsAG: negative, HIV: negative, RPR/VDLR: (unknown) (no (unknown) (unknown) -: PAP smear: (units ( unknown) date) Normal (07/2020) unknown) (unknown) (no (unknown) (unknown) -: Rubella: (units (un known) date) immune unknown) (unknown) (no (unknown) (unknown) 10.1. (units (unkno wn) date) unknown) (unknown) (no (unknown) (unknown) 10/10/22 03:06 (units (unknown) date) unknown) (unknown) (no (unknown) (unknown) 22 yo (units ( unknown) date) presents @ [facility]) 38weeks 0 days reporting regular painful (unknown) (no (unknown) (unknown) Age/Sex: 22 / F (units (unknown) date) unknown) (unknown) (no (unknown) (unknown) Allergies (units (unkn own) date) unknown) (unknown) (no (unknown) (unknown) Allergy/AdvReac (units (unknown) date) Type Severity unknown) Reaction Status Date / Time (unknown) (no (unknown) (unknown) Antibody Screen (units (unknown) date) Negative 10/10/22 unknown) 03:06 (unknown) (no (unknown) (unknown) Baseline (units (unknown) date) heart rate: 120 unknown) (unknown) (no (unknown) (unknown) Blood Type A (units (u nknown) date) Positive 10/10/22 unknown) 03:06 (unknown) (no (unknown) (unknown) Blood type OB (units ( unknown) date) HPI: A (+) unknown) positive (unknown) (no (unknown) (unknown) Category of (units (un known) date) Tracing: unknown) Non-reactive (unknown) (no (unknown) (unknown) 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) (unknown) (no (unknown) (unknown) Comments: (units (unkn own) date) unknown) (unknown) (no (unknown) (unknown) Contraction (units (un known) date) Frequency unknown) (minutes): 2 (unknown) (no (unknown) (unknown) : 2000 (units (unknown) date) Acct:[id number] unknown) (unknown) (no (unknown) (unknown) Date Patient (units (u nknown) date) Seen: 10/10/22 unknown) (unknown) (no (unknown) (unknown) Date of Last (units (u nknown) date) Menstrual Period: unknown) 01/17/22 (unknown) (no (unknown) (unknown) Date of Service: (units (unknown) date) 10/10/22 unknown) (unknown) (no (unknown) (unknown) Date of (units (unkno wn) date) admission: unknown) 10/10/22 (unknown) (no (unknown) (unknown) Date/Time (units (unkn own) date) unknown) (unknown) (no (unknown) (unknown) Dating criteria (units (unknown) date) OB: LMP confirmed unknown) by 1st trimester US (unknown) (no (unknown) (unknown) Dilation (cm): 5 (units (unknown) date) unknown) (unknown) (no (unknown) (unknown) EPDS score 17. (units (unknown) date) Symptoms were unknown) managed with counseling, with patient preferring (unknown) (no (unknown) (unknown) Effacement (%): (units (unknown) date) 90 unknown) (unknown) (no (unknown) (unknown) Elemental (units (unkn own) date) Iron-90 324 mg PO unknown) DAILY 10/10/22 10/10/22 History (unknown) (no (unknown) (unknown) Estimated Date (units (unknown) date) of Delivery: unknown) 10/24/22 (unknown) (no (unknown) (unknown) Estimated (units (unkn own) date) Gestational Age unknown) (weeks): 38 (unknown) (no (unknown) (unknown) Evaluation (units (unk nown) date) unknown) (unknown) (no (unknown) (unknown) External History (units (unknown) date) unknown) (unknown) (no (unknown) (unknown) External Labs (units ( unknown) date) unknown) (unknown) (no (unknown) (unknown) Monitor (units ( unknown) date) Decelerations: unknown) Absent (unknown) (no (unknown) (unknown) Status: (units ( unknown) date) Category l unknown) (unknown) (no (unknown) (unknown) monitor (units ( unknown) date) accelerations: unknown) Absent (unknown) (no (unknown) (unknown) Genetic Screens: (units (unknown) date) Sequential unknown) screen: Normal (unknown) (no (unknown) (unknown) : 7 (units (unk nown) date) unknown) (unknown) (no (unknown) (unknown) HCAB: negative (units (unknown) date) unknown) (unknown) (no (unknown) (unknown) Hematocrit 28.9 (units (unknown) date) % (36-46) L unknown) 10/10/22 03:06 (unknown) (no (unknown) (unknown) Hemoglobin 9.6 (units (unknown) date) g/dL (12.0-16.0) unknown) L 10/10/22 03:06 (unknown) (no (unknown) (unknown) History of (units (unk nown) date) Present Condition unknown) (unknown) (no (unknown) (unknown) Home Medications (units (unknown) date) and Allergies unknown) (unknown) (no (unknown) (unknown) Home Medications (units (unknown) date) unknown) (unknown) (no (unknown) (unknown) In early (units (unkno wn) date) she had unknown) nausea and vomiting and was on antiemetics. (unknown) (no (unknown) (unknown) [facility] (units (unknown) date) [address] [place] [address] unknown) [place] [address] (unknown) (no (unknown) (unknown) Labs (units (unkno wn) date) unknown) (unknown) (no (unknown) (unknown) Last OB Lab (units (un known) date) Results: unknown) (unknown) (no (unknown) (unknown) [id number] (units (unk nown) date) unknown) (unknown) (no (unknown) (unknown) Medical (units (unkno wn) date) complications OB: unknown) psychiatric (depression, managed with counseling) (unknown) (no (unknown) (unknown) Medication (units (unk nown) date) Instructions unknown) Recorded Confirmed Type (unknown) (no (unknown) (unknown) Meds (units (unkno wn) date) unknown) (unknown) (no (unknown) (unknown) Narrative: (units (unk nown) date) unknown) (unknown) (no (unknown) (unknown) OB HPI (units (unkno wn) date) unknown) (unknown) (no (unknown) (unknown) 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 Review of medical and obstetrical (unknown) (no (unknown) (unknown) Patient: (units (unkno wn) date) JhonyElma unknown) R MR#: (unknown) (no (unknown) (unknown) Penicillins (units (un known) date) Allergy Severe unknown) Anaphylaxis Verified 01/16/22 16:18 (unknown) (no (unknown) (unknown) Preadmission (units (u nknown) date) Labs unknown) (unknown) (no (unknown) (unknown) has (units ( unknown) date) essentially been unknown) uncomplicated. She did have the recent fall. (unknown) (no (unknown) (unknown) care: (units (unknown) date) good care unknown) (unknown) (no (unknown) (unknown) Prior (units (unkno wn) date) Pregnancies: unknown) SVDx2, Sab x4 (unknown) (no (unknown) (unknown) Provider: (units (unkn own) date) Britney Wagner unknown) Indira MENDEZ (unknown) (no (unknown) (unknown) Result Diagrams: (units (unknown) date) unknown) (unknown) (no (unknown) (unknown) She had an (units (unk nown) date) abnormal 1 hour unknown) Glucola. She was unable to attend a 3 hour GTT. (unknown) (no (unknown) (unknown) She has a (units (unkn own) date) history of unknown) anxiety and depression, was on Wellbutrin prior to (unknown) (no (unknown) (unknown) She has had (units (un known) date) anemia ; unknown) recently received an iron infusion for hemoglobin (unknown) (no (unknown) (unknown) She received (units (u nknown) date) routine unknown) care in [place]. She awoke this morning with (unknown) (no (unknown) (unknown) She reports that (units (unknown) date) she had a fall to unknown) her abdomen 3 days ago on 10/07 and was (unknown) (no (unknown) (unknown) Signed By: (units (unk nown) date) unknown) (unknown) (no (unknown) (unknown) Smoking Status: (units (unknown) date) Never smoker unknown) (unknown) (no (unknown) (unknown) Social History (units (unknown) date) (Reviewed unknown) 08/30/22 @ 15:56 by Lindsey Santamaria DO) (unknown) (no (unknown) (unknown) Ten days of (units (unk nown) date) recording FBS and unknown) 2 hour postprandials revealed normal blood glucose (unknown) (no (unknown) (unknown) Time Patient (units (u nknown) date) Seen: 03:04 unknown) (unknown) (no (unknown) (unknown) Uterine (units (unkno wn) date) Contraction unknown) Intensity: Strong/Firm (unknown) (no (unknown) (unknown) Variability: (units (u nknown) date) Average (6-10) unknown) (unknown) (no (unknown) (unknown) [Embedded Image (units (unknown) date) Not Available] unknown) (unknown) (no (unknown) (unknown) eunice. Per (units (unkno wn) date) records, she did unknown) have increased depression during this with (unknown) (no (unknown) (unknown) capsule (units (unkno wn) date) (Macrobid) unknown) (unknown) (no (unknown) (unknown) contractions (units (u nknown) date) were very unknown) frequent and uncomfortable and she felt she would not (unknown) (no (unknown) (unknown) contractions. (units ( unknown) date) unknown) (unknown) (no (unknown) (unknown) history with (units (u nknown) date) patient and unknown) review of records. (unknown) (no (unknown) (unknown) hospital was (units (u nknown) date) closer. unknown) (unknown) (no (unknown) (unknown) levels. (units (unkno wn) date) unknown) (unknown) (no (unknown) (unknown) make it to the (units (unknown) date) hospital and came unknown) here since with living in [place], our (unknown) (no (unknown) (unknown) monohydrate/macr (units (unknown) date) ocrystals 100 mg unknown) (unknown) (no (unknown) (unknown) negative (units (unkno wn) date) unknown) (unknown) (no (unknown) (unknown) negative, (units (unkno wn) date) Chlamydia screen: unknown) negative, Gonorrhea screen: negative and GBS status: (unknown) (no (unknown) (unknown) nitrofurantoin (units (unknown) date) 100 mg PO BID #9 unknown) caps 08/30/22 Rx (unknown) (no (unknown) (unknown) observed for 24 (units (unknown) date) hours overnight. unknown) (unknown) (no (unknown) (unknown) painful regular (units (unknown) date) contractions and unknown) started heading to the hospital but (unknown) (no (unknown) (unknown) but (units ( unknown) date) stopped with unknown) . Had depression after her 1st b (unknown) (no (unknown) (unknown) promethazine 25 (units (unknown) date) mg tablet 25 mg unknown) PO 10/10/22 History (unknown) (no (unknown) (unknown) repeat exam by (units (unknown) date) me unknown) (unknown) (no (unknown) (unknown) to stay off (units (un known) date) medication. unknown) Result panel 130 (unknown) (no (unknown) (unknown) (no value) (units (unk nown) date) unknown) (unknown) (no (unknown) (unknown) - IV placed in (units (unknown) date) routine CBC, type unknown) and screen ordered. (unknown) (no (unknown) (unknown) - history of (units (u nknown) date) PPH, will have unknown) Pitocin ready in the room and PPH medication box. (unknown) (no (unknown) (unknown) - medical (units (unkn own) date) records unknown) obtained,reviewed (unknown) (no (unknown) (unknown) -: Antibody (units (un known) date) screen: negative, unknown) HBsAG: negative, HIV: negative, RPR/VDLR: (unknown) (no (unknown) (unknown) -: PAP smear: (units ( unknown) date) Normal (07/2020) unknown) (unknown) (no (unknown) (unknown) -: Rubella: (units (un known) date) immune unknown) (unknown) (no (unknown) (unknown) -Admit (units (unkno wn) date) unknown) (unknown) (no (unknown) (unknown) -Anticipate (units (unknown) date) unknown) (unknown) (no (unknown) (unknown) -Desires natural (units (unknown) date) childbirth, unknown) declines any pain medication at this time. (unknown) (no (unknown) (unknown) 10.1. (units (unkno wn) date) unknown) (unknown) (no (unknown) (unknown) 10/10/22 03:06 (units (unknown) date) unknown) (unknown) (no (unknown) (unknown) 10/10/22 0645 (units ( unknown) date) unknown) (unknown) (no (unknown) (unknown) 22 yo (units (unk nown) date) presents in unknown) active labor with uncomfortable contractions with (unknown) (no (unknown) (unknown) 22 yo (units ( unknown) date) presents @ [facility] unknown) 38weeks 0 days reporting regular painful (unknown) (no (unknown) (unknown) Age/Sex: 22 / F (units (unknown) date) unknown) (unknown) (no (unknown) (unknown) Allergies (units (unkn own) date) unknown) (unknown) (no (unknown) (unknown) Allergy/AdvReac (units (unknown) date) Type Severity unknown) Reaction Status Date / Time (unknown) (no (unknown) (unknown) Antibody Screen (units (unknown) date) Negative 10/10/22 unknown) 03:06 (unknown) (no (unknown) (unknown) Anxiety and (units (un known) date) depression unknown) (unknown) (no (unknown) (unknown) Assessment and (units (unknown) date) Plan narrative: unknown) (unknown) (no (unknown) (unknown) Assessment and (units (unknown) date) Plan unknown) (unknown) (no (unknown) (unknown) Baseline (units (unknown) date) heart rate: 120 unknown) (unknown) (no (unknown) (unknown) Blood Type A (units (u nknown) date) Positive 10/10/22 unknown) 03:06 (unknown) (no (unknown) (unknown) Blood type OB (units ( unknown) date) HPI: A (+) unknown) positive (unknown) (no (unknown) (unknown) Cardio (units (unkno wn) date) unknown) (unknown) (no (unknown) (unknown) Category of (units (un known) date) Tracing: unknown) Non-reactive (unknown) (no (unknown) (unknown) 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) (unknown) (no (unknown) (unknown) Comments: (units (unkn own) date) unknown) (unknown) (no (unknown) (unknown) Contraction (units (un known) date) Frequency unknown) (minutes): 2 (unknown) (no (unknown) (unknown) : 2000 (units (unknown) date) Acct:[id number] unknown) (unknown) (no (unknown) (unknown) Date Patient (units (u nknown) date) Seen: 10/10/22 unknown) (unknown) (no (unknown) (unknown) Date of Last (units (u nknown) date) Menstrual Period: unknown) 01/17/22 (unknown) (no (unknown) (unknown) Date of Service: (units (unknown) date) 10/10/22 unknown) (unknown) (no (unknown) (unknown) Date of (units (unkno wn) date) admission: unknown) 10/10/22 (unknown) (no (unknown) (unknown) Date/Time (units (unkn own) date) unknown) (unknown) (no (unknown) (unknown) Dating criteria (units (unknown) date) OB: LMP confirmed unknown) by 1st trimester US (unknown) (no (unknown) (unknown) Dilation (cm): 5 (units (unknown) date) unknown) (unknown) (no (unknown) (unknown) EPDS score 17. (units (unknown) date) Symptoms were unknown) managed with counseling, with patient preferring (unknown) (no (unknown) (unknown) Effacement (%): (units (unknown) date) 90 unknown) (unknown) (no (unknown) (unknown) Effort + (units (unkno wn) date) Inspection: unknown) normal respiratory effort and able to speak in complete (unknown) (no (unknown) (unknown) Elemental (units (unkn own) date) Iron-90 324 mg PO unknown) DAILY 10/10/22 10/10/22 History (unknown) (no (unknown) (unknown) Estimated Date (units (unknown) date) of Delivery: unknown) 10/24/22 (unknown) (no (unknown) (unknown) Estimated (units (unkn own) date) Gestational Age unknown) (weeks): 38 (unknown) (no (unknown) (unknown) Evaluation (units (unk nown) date) unknown) (unknown) (no (unknown) (unknown) External History (units (unknown) date) unknown) (unknown) (no (unknown) (unknown) External Labs (units ( unknown) date) unknown) (unknown) (no (unknown) (unknown) Extremities (units (un known) date) unknown) (unknown) (no (unknown) (unknown) Monitor (units ( unknown) date) Decelerations: unknown) Absent (unknown) (no (unknown) (unknown) (units (unkno wn) date) Presentation: unknown) vertex (unknown) (no (unknown) (unknown) Status: (units ( unknown) date) Category l unknown) (unknown) (no (unknown) (unknown) monitor (units ( unknown) date) accelerations: unknown) Absent (unknown) (no (unknown) (unknown) (units (unkno wn) date) unknown) (unknown) (no (unknown) (unknown) Genetic Screens: (units (unknown) date) Sequential unknown) screen: Normal (unknown) (no (unknown) (unknown) : 7 (units (unk nown) date) unknown) (unknown) (no (unknown) (unknown) HCAB: negative (units (unknown) date) unknown) (unknown) (no (unknown) (unknown) HENMT (units (unkno wn) date) unknown) (unknown) (no (unknown) (unknown) Has history of (units (unknown) date) unknown) hemorrhage with prior delivery. (unknown) (no (unknown) (unknown) Head: normal to (units (unknown) date) inspection and unknown) normocephalic (unknown) (no (unknown) (unknown) Hematocrit 28.9 (units (unknown) date) % (36-46) L unknown) 10/10/22 03:06 (unknown) (no (unknown) (unknown) Hemoglobin 9.6 (units (unknown) date) g/dL (12.0-16.0) unknown) L 10/10/22 03:06 (unknown) (no (unknown) (unknown) History of PCOS (units (unknown) date) unknown) (unknown) (no (unknown) (unknown) History of (units (unk nown) date) Present Condition unknown) (unknown) (no (unknown) (unknown) Home Medications (units (unknown) date) and Allergies unknown) (unknown) (no (unknown) (unknown) Home Medications (units (unknown) date) unknown) (unknown) (no (unknown) (unknown) Hx of (units (unkno wn) date) laparoscopy unknown) (unknown) (no (unknown) (unknown) In early (units (unkno wn) date) she had unknown) nausea and vomiting and was on antiemetics. (unknown) (no (unknown) (unknown) [facility] (units (unknown) date) [address] unknown) [place] [address] (unknown) (no (unknown) (unknown) Labs (units (unkno wn) date) unknown) (unknown) (no (unknown) (unknown) Last OB Lab (units (un known) date) Results: unknown) (unknown) (no (unknown) (unknown) Lower extremity: (units (unknown) date) Yes normal to unknown) inspection; No edema (unknown) (no (unknown) (unknown) [id number] (units (unk nown) date) unknown) (unknown) (no (unknown) (unknown) Medical History (units (unknown) date) (Updated 10/10/22 unknown) @ 06:37 by Britney Wagner MD) (unknown) (no (unknown) (unknown) Medical (units (unkno wn) date) complications OB: unknown) psychiatric (depression, managed with counseling) (unknown) (no (unknown) (unknown) Medication (units (unk nown) date) Instructions unknown) Recorded Confirmed Type (unknown) (no (unknown) (unknown) Meds (units (unkno wn) date) unknown) (unknown) (no (unknown) (unknown) Narrative: (units (unk nown) date) unknown) (unknown) (no (unknown) (unknown) OB Exam (units (unkno wn) date) unknown) (unknown) (no (unknown) (unknown) OB HPI (units (unkno wn) date) unknown) (unknown) (no (unknown) (unknown) 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 Review of medical and obstetrical (unknown) (no (unknown) (unknown) Patient: (units (unkno wn) date) Elma Booker unknown) R MR#: (unknown) (no (unknown) (unknown) Penicillins (units (un known) date) Allergy Severe unknown) Anaphylaxis Verified 01/16/22 16:18 (unknown) (no (unknown) (unknown) Preadmission (units (u nknown) date) Labs unknown) (unknown) (no (unknown) (unknown) has (units ( unknown) date) essentially been unknown) uncomplicated. She did have the recent fall. (unknown) (no (unknown) (unknown) care: (units (unknown) date) good care unknown) (unknown) (no (unknown) (unknown) Presents with (units ( unknown) date) soup mixer an S/O unknown) accompanying her. (unknown) (no (unknown) (unknown) Prior (units (unkno wn) date) Pregnancies: unknown) SVDx2, Sab x4 (unknown) (no (unknown) (unknown) Provider: (units (unkn own) date) Britney Wagner unknown) Indira MENDEZ (unknown) (no (unknown) (unknown) Rate: regular (units ( unknown) date) rate unknown) (unknown) (no (unknown) (unknown) Resp (units (unkno wn) date) unknown) (unknown) (no (unknown) (unknown) Result Diagrams: (units (unknown) date) unknown) (unknown) (no (unknown) (unknown) She had an (units (unk nown) date) abnormal 1 hour unknown) Glucola. She was unable to attend a 3 hour GTT. (unknown) (no (unknown) (unknown) She has a (units (unkn own) date) history of unknown) anxiety and depression, was on Wellbutrin prior to (unknown) (no (unknown) (unknown) She has had (units (un known) date) anemia ; unknown) recently received an iron infusion for hemoglobin (unknown) (no (unknown) (unknown) She received (units (u nknown) date) routine unknown) care in [place]. She awoke this morning with (unknown) (no (unknown) (unknown) She reports that (units (unknown) date) she had a fall to unknown) her abdomen 3 days ago on 10/07 and was (unknown) (no (unknown) (unknown) Signed (units (unkno wn) date) By:<Electronicall unknown) y signed by Britney Wagner MD> (unknown) (no (unknown) (unknown) Smoking Status: (units (unknown) date) Never smoker unknown) (unknown) (no (unknown) (unknown) Social History (units (unknown) date) (Reviewed unknown) 08/30/22 @ 15:56 by Lindsey Santamaria DO) (unknown) (no (unknown) (unknown) Surgical History (units (unknown) date) (Updated 10/10/22 unknown) @ 06:37 by Britney Wagner MD) (unknown) (no (unknown) (unknown) Ten days of (units (unk nown) date) recording FBS and unknown) 2 hour postprandials revealed normal blood glucose (unknown) (no (unknown) (unknown) Time Patient (units (u nknown) date) Seen: 03:04 unknown) (unknown) (no (unknown) (unknown) Time Spent with (units (unknown) date) Patient unknown) (unknown) (no (unknown) (unknown) Total time spent (units (unknown) date) with greater than unknown) 50% in coordination of care (as documented) (unknown) (no (unknown) (unknown) Uterine (units (unkno wn) date) Contraction unknown) Intensity: Strong/Firm (unknown) (no (unknown) (unknown) Variability: (units (u nknown) date) Average (6-10) unknown) (unknown) (no (unknown) (unknown) [Embedded Image (units (unknown) date) Not Available] unknown) (unknown) (no (unknown) (unknown) eunice. Per (units (unkno wn) date) records, she did unknown) have increased depression during this with (unknown) (no (unknown) (unknown) at patient's (units (u nknown) date) floor/unit and/or unknown) counseling patient:: Greater than 35 minutes (unknown) (no (unknown) (unknown) bulgin membranes (units (unknown) date) unknown) (unknown) (no (unknown) (unknown) capsule (units (unkno wn) date) (Macrobid) unknown) (unknown) (no (unknown) (unknown) cervical change. (units (unknown) date) No ruptured unknown) membranes. Reports GBS negative screen. (unknown) (no (unknown) (unknown) contractions (units (u nknown) date) were very unknown) frequent and uncomfortable and she felt she would not (unknown) (no (unknown) (unknown) contractions. (units ( unknown) date) unknown) (unknown) (no (unknown) (unknown) history with (units (u nknown) date) patient and unknown) review of records. (unknown) (no (unknown) (unknown) hospital was (units (u nknown) date) closer. unknown) (unknown) (no (unknown) (unknown) levels. (units (unkno wn) date) unknown) (unknown) (no (unknown) (unknown) make it to the (units (unknown) date) hospital and came unknown) here since with living in [place], our (unknown) (no (unknown) (unknown) monohydrate/macr (units (unknown) date) ocrystals 100 mg unknown) (unknown) (no (unknown) (unknown) negative (units (unkno wn) date) unknown) (unknown) (no (unknown) (unknown) negative, (units (unkno wn) date) Chlamydia screen: unknown) negative, Gonorrhea screen: negative and GBS status: (unknown) (no (unknown) (unknown) nitrofurantoin (units (unknown) date) 100 mg PO BID #9 unknown) caps 08/30/22 Rx (unknown) (no (unknown) (unknown) observed for 24 (units (unknown) date) hours overnight. unknown) (unknown) (no (unknown) (unknown) painful regular (units (unknown) date) contractions and unknown) started heading to the hospital but (unknown) (no (unknown) (unknown) but (units ( unknown) date) stopped with unknown) . Had depression after her 1st b (unknown) (no (unknown) (unknown) promethazine 25 (units (unknown) date) mg tablet 25 mg unknown) PO 12/29/22 History (unknown) (no (unknown) (unknown) repeat exam by (units (unknown) date) me 30 minutes unknown) later due to report of vaginal pressure: /3, (unknown) (no (unknown) (unknown) sentences (units (unkn own) date) unknown) (unknown) (no (unknown) (unknown) subcutaneous pen (units (unknown) date) injector unknown) (unknown) (no (unknown) (unknown) sumatriptan (units (un known) date) succinate 6 unknown) mg/0.5 mL mg SUBCUT 10/10/22 History (unknown) (no (unknown) (unknown) to stay off (units (un known) date) medication. unknown) Result panel 131 (unknown) (no (unknown) (unknown) (no value) (units (unk nown) date) unknown) (unknown) (no (unknown) (unknown) 1: (units (unkno wn) date) unknown) (unknown) (no (unknown) (unknown) A vigorous male (units (unknown) date) was placed unknown) on the maternal abdomen. (unknown) (no (unknown) (unknown) About 1 minute (units (unknown) date) after delivery, unknown) placenta gave signs of placental separation (unknown) (no (unknown) (unknown) Age/Sex: 22 / F (units (unknown) date) unknown) (unknown) (no (unknown) (unknown) Anesthesia Type: (units (unknown) date) None unknown) (unknown) (no (unknown) (unknown) At 7 cm she had (units (unknown) date) spontaneous unknown) rupture membranes and quickly progressed to (unknown) (no (unknown) (unknown) Cervical ripening (units (unknown) date) method: none unknown) (unknown) (no (unknown) (unknown) Complications: (units (unknown) date) unknown) (unknown) (no (unknown) (unknown) : 2000 (units (unknown) date) Acct:[id number] unknown) (unknown) (no (unknown) (unknown) Date of Service: (units (unknown) date) 10/10/22 unknown) (unknown) (no (unknown) (unknown) Delivery date: (units (unknown) date) 10/10/22 unknown) (unknown) (no (unknown) (unknown) Delivery monitor: (units (unknown) date) external FHT and unknown) external uterine (unknown) (no (unknown) (unknown) Episiotomy (units (unk nown) date) description: None unknown) (unknown) (no (unknown) (unknown) Estimated blood (units (unknown) date) loss (mL): 400 unknown) (unknown) (no (unknown) (unknown) Cord Vessel (units (unknown) date) Description: 3 unknown) Vessels (unknown) (no (unknown) (unknown) Position: (units (unknown) date) Right Occiput unknown) Anterior (unknown) (no (unknown) (unknown) (units (unkno wn) date) Presentation: unknown) vertex (unknown) (no (unknown) (unknown) Induction method: (units (unknown) date) none unknown) (unknown) (no (unknown) (unknown) gender: (units (unknown) date) Male unknown) (unknown) (no (unknown) (unknown) Intrapartal (units (un known) date) Events: unknown) Precipitous Labor < 3 hours (unknown) (no (unknown) (unknown) [facility] (units (unknown) date) [address] unknown) [place] [address] (unknown) (no (unknown) (unknown) L+D Laceration (units (unknown) date) Description: None unknown) (unknown) (no (unknown) (unknown) Labor + Delivery (units (unknown) date) unknown) (unknown) (no (unknown) (unknown) [id number] (units (unk nown) date) unknown) (unknown) (no (unknown) (unknown) Narrative: (units (unk nown) date) unknown) (unknown) (no (unknown) (unknown) Baby (units (u nknown) date) unknown) (unknown) (no (unknown) (unknown) 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 (units (unknown) date) Note unknown) (unknown) (no (unknown) (unknown) On inspection she (units (unknown) date) had no obstetrical unknown) lacerations, the perineum, vagina, (unknown) (no (unknown) (unknown) Patient: (units (unkno wn) date) Elma Booker R unknown) MR#: (unknown) (no (unknown) (unknown) Placenta delivery (units (unknown) date) description: unknown) Spontaneous (unknown) (no (unknown) (unknown) Plan for (units (unkno wn) date) aftercare: Routine unknown) care (unknown) (no (unknown) (unknown) (units (unk nown) date) unknown) (unknown) (no (unknown) (unknown) Provider: (units (unkn own) ) Britney Wagner unknown) (unknown) (no (unknown) (unknown) Pt presented with (units (unknown) date) frequent unknown) uncomfortable contractions, in active labor. (unknown) (no (unknown) (unknown) Route of (units (unkno wn) date) delivery: unknown) (unknown) (no (unknown) (unknown) Routine IV (units (unk n) date) Pitocin was unknown) started. her bleeding remained light. (unknown) (no (unknown) (unknown) over an (units (un known) date) intact perineum. unknown) Placenta delivered spontaneously, was intact and (unknown) (no (unknown) (unknown) She only desired (units (unknown) date) intermittent FHR unknown) auscultation which was done after short EFM (unknown) (no (unknown) (unknown) She was left to (units (unknown) date) recover in good unknown) condition. She did have some lightheadedness (unknown) (no (unknown) (unknown) Signed By: (units (unk nown) date) unknown) (unknown) (no (unknown) (unknown) With 1 push she (units (unknown) date) brought the head unknown) through the labia. Bed was thus not broken (unknown) (no (unknown) (unknown) after delivery (units (unknown) date) but her blood loss unknown) had been average. Some routine IV fluids (unknown) (no (unknown) (unknown) agreed and cord (units (unknown) date) was clamped and unknown) cut. Placenta was not fully at this (unknown) (no (unknown) (unknown) at this point. (units (unknown) date) She continued to unknown) push with the contraction Bringing the head (unknown) (no (unknown) (unknown) at this time. (units ( unknown) date) Patient had unknown) desired to waiting until pulsation stopped. She (unknown) (no (unknown) (unknown) completely (units (unk nown) date) dilated. unknown) (unknown) (no (unknown) (unknown) decelerations.ivana (units (unknown) date) ssuring. unknown) (unknown) (no (unknown) (unknown) deliver with mild (units (unknown) date) traction with unknown) maternal pushing effort. At this time with (unknown) (no (unknown) (unknown) delivered without (units (unknown) date) difficulty. Mild unknown) shoulder dystocia, approximate 1 minute (unknown) (no (unknown) (unknown) frequently due to (units (unknown) date) vaginal pressure unknown) too. Her lightheadedness gradually improved. (unknown) (no (unknown) (unknown) from delivery of (units (unknown) date) head to delivery unknown) of infant. (unknown) (no (unknown) (unknown) had a normal (units (u nknown) date) appearing unknown) three-vessel cord. She had no perineal or vaginal (unknown) (no (unknown) (unknown) labor analgesia (units (unknown) date) and with last few unknown) minutes prior to delivery, she was using (unknown) (no (unknown) (unknown) lacerations. (units (u nknown) date) unknown) (unknown) (no (unknown) (unknown) maternal pushing, (units (unknown) date) [place] corkscrew unknown) maneuver performed and shoulders and (unknown) (no (unknown) (unknown) maternal pushing. (units (unknown) date) She only had a unknown) light amount of bleeding after delivery of the (unknown) (no (unknown) (unknown) none (units (unkno wn) date) unknown) (unknown) (no (unknown) (unknown) periurethral (units (u nknown) date) areas were intact. unknown) The cervix palpated to be intact. (unknown) (no (unknown) (unknown) placed back in to (units (unknown) date) make Garcia unknown) position. Anterior shoulder still did not (unknown) (no (unknown) (unknown) placenta. (units (unkn own) date) unknown) (unknown) (no (unknown) (unknown) present. With (units ( unknown) date) pushing the unknown) shoulders did not deliver with ease. Patient's legs (unknown) (no (unknown) (unknown) time but (units (unkno wn) date) approximately 1 unknown) minute later did fully separate and delivered with (unknown) (no (unknown) (unknown) to and (units (unknown) date) head was delivered unknown) in a controlled fashion. No nuchal cord was (unknown) (no (unknown) (unknown) tracing obtained (units (unknown) date) showing normal FHR unknown) variability and no (unknown) (no (unknown) (unknown) were started, but (units (unknown) date) lightheadedness unknown) was felt to be due to using nitrous oxide for (unknown) (no (unknown) (unknown) with a gush of (units (unknown) date) blood. I unknown) recommended proceeding with clamping and cutting cord Result panel 132 (unknown) (no (unknown) (unknown) (no value) (units (unk nown) date) unknown) (unknown) (no (unknown) (unknown) 03:06 03:06 (units (un known) date) 03:06 unknown) (unknown) (no (unknown) (unknown) 10/10/22 03:06 (units (unknown) date) unknown) (unknown) (no (unknown) (unknown) 10/10/22 (units (unkno wn) date) 10/10/22 unknown) 10/10/22 (unknown) (no (unknown) (unknown) Age/Sex: 22 / F (units (unknown) date) unknown) (unknown) (no (unknown) (unknown) Antibody Screen (units (unknown) date) Negative unknown) (unknown) (no (unknown) (unknown) Baso # (Auto) 0 (units (unknown) date) unknown) (unknown) (no (unknown) (unknown) Baso % (Auto) (units ( unknown) date) 0.1 unknown) (unknown) (no (unknown) (unknown) Blood Type A (units (u nknown) date) Positive unknown) (unknown) (no (unknown) (unknown) : 2000 (units (unknown) date) Acct:[id number] unknown) (unknown) (no (unknown) (unknown) Date Patient (units (u nknown) date) Seen: 10/10/22 unknown) (unknown) (no (unknown) (unknown) Date of (units (unkno wn) date) Service: unknown) 10/10/22 (unknown) (no (unknown) (unknown) Eos # (Auto) 0 (units (unknown) date) unknown) (unknown) (no (unknown) (unknown) Eos % (Auto) (units (u nknown) date) 0.5 L unknown) (unknown) (no (unknown) (unknown) Hct 28.9 L (units (unk nown) date) unknown) (unknown) (no (unknown) (unknown) Hgb 9.6 L (units (unkn own) date) unknown) (unknown) (no (unknown) (unknown) [facility] (units (unknown) date) [address] unknown) [place] [address] (unknown) (no (unknown) (unknown) Laboratory (units (unk nown) date) Results - last unknown) 24 hr (unknown) (no (unknown) (unknown) Labs (units (unkno wn) date) unknown) (unknown) (no (unknown) (unknown) Labs: (units (unkno wn) date) unknown) (unknown) (no (unknown) (unknown) Lymph # (Auto) (units (unknown) date) 1700 unknown) (unknown) (no (unknown) (unknown) Lymph % (Auto) (units (unknown) date) 22.7 L unknown) (unknown) (no (unknown) (unknown) [id number] (units (unk nown) date) unknown) (unknown) (no (unknown) (unknown) MCH 27.7 (units (unkno wn) date) unknown) (unknown) (no (unknown) (unknown) MCHC 33.1 (units (unkn own) date) unknown) (unknown) (no (unknown) (unknown) MCV 83.6 (units (unkno wn) date) unknown) (unknown) (no (unknown) (unknown) Rich # (Auto) (units ( unknown) date) 600 unknown) (unknown) (no (unknown) (unknown) Rich % (Auto) (units ( unknown) date) 7.4 unknown) (unknown) (no (unknown) (unknown) Neut # (Auto) (units ( unknown) date) 5300 unknown) (unknown) (no (unknown) (unknown) Neut % (Auto) (units ( unknown) date) 69.3 unknown) (unknown) (no (unknown) (unknown) [place] baby (units (u nknown) date) status: doing unknown) well (unknown) (no (unknown) (unknown) feeding (units (unknown) date) status: unknown) exclusively breast feeding (unknown) (no (unknown) (unknown) 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 (units (unknown) date) Note unknown) (unknown) (no (unknown) (unknown) Objective (units (unkn own) date) unknown) (unknown) (no (unknown) (unknown) Patient (units (unkno wn) date) comments: other unknown) (unknown) (no (unknown) (unknown) Patient: (units (unkno wn) date) Elma Booker unknown) R MR#: (unknown) (no (unknown) (unknown) Plt Count 158 (units ( unknown) date) unknown) (unknown) (no (unknown) (unknown) (units (unk nown) date) Assessment + unknown) Plan (unknown) (no (unknown) (unknown) Provider: (units (unkn own) date) Britney Wagner unknown) Indira MENDEZ (unknown) (no (unknown) (unknown) RBC 3.46 L (units (unk nown) date) unknown) (unknown) (no (unknown) (unknown) RDW 14.8 (units (unkno wn) date) unknown) (unknown) (no (unknown) (unknown) Result (units (unkno wn) date) Diagrams: unknown) (unknown) (no (unknown) (unknown) SARS-CoV-2 (units (unk nown) date) (PCR) Negative unknown) (unknown) (no (unknown) (unknown) Signed By: (units (unk nown) date) unknown) (unknown) (no (unknown) (unknown) Subjective - OB (units (unknown) date) unknown) (unknown) (no (unknown) (unknown) Subjective (units (unk nown) date) unknown) (unknown) (no (unknown) (unknown) Time Patient (units (u nknown) date) Seen: 16:27 unknown) (unknown) (no (unknown) (unknown) Time Spent With (units (unknown) date) Patient unknown) (unknown) (no (unknown) (unknown) Time: (units (unkno wn) date) unknown) (unknown) (no (unknown) (unknown) Total time (units (unk nown) date) spent is greater unknown) than 50% in coordination of care (as documented) at (unknown) (no (unknown) (unknown) WBC 7.7 (units (unkno wn) date) unknown) (unknown) (no (unknown) (unknown) [Embedded Image (units (unknown) date) Not Available] unknown) (unknown) (no (unknown) (unknown) patient's (units (unkn own) date) floor/unit unknown) and/or counseling patient: Result panel 133 (unknown) (no date) (unknown) (unknown) 0 /ul (unkn own) (unknown) (no date) (unknown) (unknown) 0.5 % (unkn own) (unknown) (no date) (unknown) (unknown) 1.4 % (unkn own) (unknown) (no date) (unknown) (unknown) 100 /ul (unkn own) (unknown) (no date) (unknown) (unknown) 15.1 % (unkn own) (unknown) (no date) (unknown) (unknown) 172 x10 3/ul (unkn own) (unknown) (no date) (unknown) (unknown) 1900 /ul (unkn own) (unknown) (no date) (unknown) (unknown) 21.7 % (unkn own) (unknown) (no date) (unknown) (unknown) 28.1 pg (unkn own) (unknown) (no date) (unknown) (unknown) 28.9 % (unkn own) (unknown) (no date) (unknown) (unknown) 3.46 x10 6/ul (unkn own) (unknown) (no date) (unknown) (unknown) 33.5 % (unkn own) (unknown) (no date) (unknown) (unknown) 6.9 % (unkn own) (unknown) (no date) (unknown) (unknown) 600 /ul (unkn own) (unknown) (no date) (unknown) (unknown) 6100 /ul (unkn own) (unknown) (no date) (unknown) (unknown) 69.5 % (unkn own) (unknown) (no date) (unknown) (unknown) 8.7 x10 3/ul (unkn own) (unknown) (no date) (unknown) (unknown) 83.7 fl (unkn own) (unknown) (no date) (unknown) (unknown) 9.7 g/dl (unkn own) Result panel 134 (unknown) (no (unknown) (unknown) (no value) (units (unk nown) date) unknown) (unknown) (no (unknown) (unknown) (past 8 hours): (units (unknown) date) unknown) (unknown) (no (unknown) (unknown) 05:48 (units (unkno wn) date) unknown) (unknown) (no (unknown) (unknown) 08:29 10/11/22 (units (unknown) date) unknown) (unknown) (no (unknown) (unknown) 08:42 (units (unkno wn) date) unknown) (unknown) (no (unknown) (unknown) 1 - 2 puff (units (unk nown) date) INHALATION unknown) DIRECTED (unknown) (no (unknown) (unknown) 100 mg PO BID (units ( unknown) date) Qty: 9 0RF unknown) (unknown) (no (unknown) (unknown) 10/10/22 02:32 (units (unknown) date) unknown) (unknown) (no (unknown) (unknown) 10/11/22 05:27 (units (unknown) date) unknown) (unknown) (no (unknown) (unknown) 10/11/22 05:48 (units (unknown) date) unknown) (unknown) (no (unknown) (unknown) 10/11/22 (units (unkno wn) date) unknown) (unknown) (no (unknown) (unknown) 20 mg PO (units (un known) date) DIRECTED unknown) (unknown) (no (unknown) (unknown) 25 mg PO (units (un known) date) DIRECTED unknown) (unknown) (no (unknown) (unknown) 324 mg PO DAILY (units (unknown) date) unknown) (unknown) (no (unknown) (unknown) 6 mg SUBCUT 2XD (units (unknown) date) unknown) (unknown) (no (unknown) (unknown) Age/Sex: 22 / F (units (unknown) date) unknown) (unknown) (no (unknown) (unknown) Britney Jacobson (units (unkn own) date) MD Kristy unknown) (unknown) (no (unknown) (unknown) Baso # (Auto) 0 (units (unknown) date) unknown) (unknown) (no (unknown) (unknown) Baso % (Auto) (units ( unknown) date) 0.5 unknown) (unknown) (no (unknown) (unknown) Comment: (units (unkno wn) date) unknown) (unknown) (no (unknown) (unknown) Consult to (units (unk nown) date) unknown) Clay Miner Routine (unknown) (no (unknown) (unknown) Consults: (units (unkn own) date) unknown) (unknown) (no (unknown) (unknown) : 2000 (units (unknown) date) Acct:[id number] unknown) (unknown) (no (unknown) (unknown) Date Patient (units (u nknown) date) Seen: 10/11/22 unknown) (unknown) (no (unknown) (unknown) Date of Service: (units (unknown) date) 10/10/22 unknown) (unknown) (no (unknown) (unknown) Date of (units (unkno wn) date) admission: unknown) (unknown) (no (unknown) (unknown) Discharge Data (units (unknown) date) unknown) (unknown) (no (unknown) (unknown) Discharge Date: (units (unknown) date) 10/11/22 unknown) (unknown) (no (unknown) (unknown) Discharge Plan (units (unknown) date) unknown) (unknown) (no (unknown) (unknown) Discharge (units (unkn own) date) Providers unknown) (unknown) (no (unknown) (unknown) Discharge (units (unkn own) date) Summary unknown) (unknown) (no (unknown) (unknown) Discharge orders (units (unknown) date) + Medications unknown) (unknown) (no (unknown) (unknown) Discharge (units (unkn own) date) provider: unknown) (unknown) (no (unknown) (unknown) Elemental (units (unkn own) date) Iron-90 unknown) (unknown) (no (unknown) (unknown) Eos # (Auto) 100 (units (unknown) date) unknown) (unknown) (no (unknown) (unknown) Eos % (Auto) 1.4 (units (unknown) date) L unknown) (unknown) (no (unknown) (unknown) Exam (units (unkno wn) date) unknown) (unknown) (no (unknown) (unknown) Follow (units (unkno wn) date) up/Referrals: unknown) (unknown) (no (unknown) (unknown) Hct 28.9 L (units (unk nown) date) unknown) (unknown) (no (unknown) (unknown) Hgb 9.7 L (units (unkn own) date) unknown) (unknown) (no (unknown) (unknown) Hospital Course (units (unknown) date) unknown) (unknown) (no (unknown) (unknown) INHALE 1 TO 2 (units ( unknown) date) PUFFS BY MOUTH unknown) EVERY 4 HOURS NEEDED (unknown) (no (unknown) (unknown) Inject 1 pen (units (u nknown) date) needle unknown) subcutaneously twice a day as needed for pain (unknown) (no (unknown) (unknown) [facility] (units (unknown) date) [address] [place] [address] unknown) [place] [address] (unknown) (no (unknown) (unknown) Label Comments: (units (unknown) date) unknown) (unknown) (no (unknown) (unknown) Laboratory (units (unk nown) date) Results - last 24 unknown) hr (unknown) (no (unknown) (unknown) Labs (units (unkno wn) date) unknown) (unknown) (no (unknown) (unknown) Labs: (units (unkno wn) date) unknown) (unknown) (no (unknown) (unknown) Lymph # (Auto) (units (unknown) date) 1900 unknown) (unknown) (no (unknown) (unknown) Lymph % (Auto) (units (unknown) date) 21.7 L unknown) (unknown) (no (unknown) (unknown) [id number] (units (unk nown) date) unknown) (unknown) (no (unknown) (unknown) MCH 28.1 (units (unkno wn) date) unknown) (unknown) (no (unknown) (unknown) MCHC 33.5 (units (unkn own) date) unknown) (unknown) (no (unknown) (unknown) MCV 83.7 (units (unkno wn) date) unknown) (unknown) (no (unknown) (unknown) Omid (units (unkno wn) date) MD Jolene unknown) (unknown) (no (unknown) (unknown) Patricia Fernández (units (unknown) date) MD jinny [Primary unknown) Care Provider] (unknown) (no (unknown) (unknown) Rich # (Auto) (units ( unknown) date) 600 unknown) (unknown) (no (unknown) (unknown) Rich % (Auto) (units ( unknown) date) 6.9 unknown) (unknown) (no (unknown) (unknown) Neut # (Auto) (units ( unknown) date) 6100 unknown) (unknown) (no (unknown) (unknown) Neut % (Auto) (units ( unknown) date) 69.5 unknown) (unknown) (no (unknown) (unknown) No Action (units (unkn own) date) unknown) (unknown) (no (unknown) (unknown) Objective (units (unkn own) date) unknown) (unknown) (no (unknown) (unknown) Patient: (units (unkno wn) date) Elma Booker unknown) R MR#: (unknown) (no (unknown) (unknown) Plt Count 172 (units ( unknown) date) unknown) (unknown) (no (unknown) (unknown) Prescriptions: (units (unknown) date) unknown) (unknown) (no (unknown) (unknown) Primary Care (units (u nknown) date) Provider: unknown) Omid Fernández (unknown) (no (unknown) (unknown) Primary care (units (u nknown) date) physician: unknown) (unknown) (no (unknown) (unknown) Provider (units (unkno wn) date) unknown) (unknown) (no (unknown) (unknown) Provider: (units (unkn own) date) Britney Wagner unknown) Indira MENDEZ (unknown) (no (unknown) (unknown) RBC 3.46 L (units (unk nown) date) unknown) (unknown) (no (unknown) (unknown) RDW 15.1 H (units (unk nown) date) unknown) (unknown) (no (unknown) (unknown) Result Diagrams: (units (unknown) date) unknown) (unknown) (no (unknown) (unknown) Signed By: (units (unk nown) date) unknown) (unknown) (no (unknown) (unknown) Summary (units (unkno wn) date) unknown) (unknown) (no (unknown) (unknown) Temperature 96.5 (units (unknown) date) F L 96.5 F L unknown) (unknown) (no (unknown) (unknown) Time Patient (units (u nknown) date) Seen: 10:45 unknown) (unknown) (no (unknown) (unknown) Time Spent with (units (unknown) date) Patient unknown) (unknown) (no (unknown) (unknown) Time (units (unkno wn) date) attestation: unknown) (unknown) (no (unknown) (unknown) Total time spent (units (unknown) date) providing and/or unknown) coordinating discharge services: (unknown) (no (unknown) (unknown) Vital Signs (units (un known) date) unknown) (unknown) (no (unknown) (unknown) WBC 8.7 (units (unkno wn) date) unknown) (unknown) (no (unknown) (unknown) [Embedded Image (units (unknown) date) Not Available] unknown) (unknown) (no (unknown) (unknown) albuterol (units (unkn own) date) sulfate 90 unknown) mcg/actuation HFA aerosol inhaler (unknown) (no (unknown) (unknown) famotidine 20 mg (units (unknown) date) tablet unknown) (unknown) (no (unknown) (unknown) nitrofurantoin (units (unknown) date) monohyd/m-cryst unknown) [Macrobid] 100 mg Capsule (unknown) (no (unknown) (unknown) promethazine 25 (units (unknown) date) mg tablet unknown) (unknown) (no (unknown) (unknown) sumatriptan (units (un known) date) succinate 6 unknown) mg/0.5 mL syringe Result panel 135 (unknown) (no (unknown) (unknown) (no value) (units (unk nown) date) unknown) (unknown) (no (unknown) (unknown) 10/14/222020 (units ( unknown) date) unknown) (unknown) (no (unknown) (unknown) 1: (units (unkno wn) date) unknown) (unknown) (no (unknown) (unknown) A vigorous male (units (unknown) date) infant was placed unknown) on the maternal abdomen. (unknown) (no (unknown) (unknown) score (1 (units (unknown) date) min): 9 unknown) (unknown) (no (unknown) (unknown) score (5 (units (unknown) date) min): 9 unknown) (unknown) (no (unknown) (unknown) About 1 minute (units (unknown) date) after delivery, unknown) placenta gave signs of placental separation (unknown) (no (unknown) (unknown) Age/Sex: 22 / F (units (unknown) date) unknown) (unknown) (no (unknown) (unknown) Anesthesia Type: (units (unknown) date) None unknown) (unknown) (no (unknown) (unknown) At 7 cm she had (units (unknown) date) spontaneous unknown) rupture membranes and quickly progressed to (unknown) (no (unknown) (unknown) weight: 7 (units (unknown) date) lb 14.492 oz unknown) (unknown) (no (unknown) (unknown) Cervical ripening (units (unknown) date) method: none unknown) (unknown) (no (unknown) (unknown) Complications: (units (unknown) date) unknown) (unknown) (no (unknown) (unknown) : 2000 (units (unknown) date) Acct:[id number] unknown) (unknown) (no (unknown) (unknown) Date of Service: (units (unknown) date) 10/10/22 unknown) (unknown) (no (unknown) (unknown) Delivery date: (units (unknown) date) 10/10/22 unknown) (unknown) (no (unknown) (unknown) Delivery monitor: (units (unknown) date) external FHT and unknown) external uterine (unknown) (no (unknown) (unknown) Episiotomy (units (unk nown) date) description: None unknown) (unknown) (no (unknown) (unknown) Estimated blood (units (unknown) date) loss (mL): 400 unknown) (unknown) (no (unknown) (unknown) Cord Vessel (units (unknown) date) Description: 3 unknown) Vessels (unknown) (no (unknown) (unknown) Position: (units (unknown) date) Right Occiput unknown) Anterior (unknown) (no (unknown) (unknown) (units (unkno wn) date) Presentation: unknown) vertex (unknown) (no (unknown) (unknown) Induction method: (units (unknown) date) none unknown) (unknown) (no (unknown) (unknown) Infant gender: (units (unknown) date) Male unknown) (unknown) (no (unknown) (unknown) Intrapartal (units (un known) date) Events: unknown) Precipitous Labor < 3 hours (unknown) (no (unknown) (unknown) [facility] (units (unknown) date) [address]) [place] [address] (unknown) (no (unknown) (unknown) L+D Laceration (units (unknown) date) Description: None unknown) (unknown) (no (unknown) (unknown) Labor + Delivery (units (unknown) date) unknown) (unknown) (no (unknown) (unknown) [id number] (units (unk nown) date) unknown) (unknown) (no (unknown) (unknown) Narrative: (units (unk nown) date) unknown) (unknown) (no (unknown) (unknown) Baby (units (u nknown) date) unknown) (unknown) (no (unknown) (unknown) 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 (units (unknown) date) Note unknown) (unknown) (no (unknown) (unknown) On inspection she (units (unknown) date) had no obstetrical unknown) lacerations, the perineum, vagina, (unknown) (no (unknown) (unknown) Patient: (units (unkno wn) date) Jodi Bookerlynn R unknown) MR#: (unknown) (no (unknown) (unknown) Placenta delivery (units (unknown) date) description: unknown) Spontaneous (unknown) (no (unknown) (unknown) Plan for (units (unkno wn) date) aftercare: Routine unknown) care (unknown) (no (unknown) (unknown) (units (unk nown) date) unknown) (unknown) (no (unknown) (unknown) Provider: (units (unkn own) date) Britney Wagner unknown) (unknown) (no (unknown) (unknown) Pt presented with (units (unknown) date) frequent unknown) uncomfortable contractions, in active labor. (unknown) (no (unknown) (unknown) Route of (units (unkno wn) date) delivery: unknown) (unknown) (no (unknown) (unknown) Routine IV (units (unk nown) date) Pitocin was unknown) started. her bleeding remained light. (unknown) (no (unknown) (unknown) over an (units (un known) date) intact perineum. unknown) Placenta delivered spontaneously, was intact and (unknown) (no (unknown) (unknown) She only desired (units (unknown) date) intermittent FHR unknown) auscultation which was done after short EFM (unknown) (no (unknown) (unknown) She was left to (units (unknown) date) recover in good unknown) condition. She did have some lightheadedness (unknown) (no (unknown) (unknown) Signed (units (unkno wn) date) By:<Electronically unknown) signed by Britney Wagner MD> (unknown) (no (unknown) (unknown) With 1 push she (units (unknown) date) brought the head unknown) through the labia. Bed was thus not broken (unknown) (no (unknown) (unknown) after delivery (units (unknown) date) but her blood loss unknown) had been average. Some routine IV fluids (unknown) (no (unknown) (unknown) agreed and cord (units (unknown) date) was clamped and unknown) cut. Placenta was not fully at this (unknown) (no (unknown) (unknown) at this point. (units (unknown) date) She continued to unknown) push with the contraction Bringing the head (unknown) (no (unknown) (unknown) at this time. (units ( unknown) date) Patient had unknown) desired to waiting until pulsation stopped. She (unknown) (no (unknown) (unknown) completely (units (unk nown) date) dilated. unknown) (unknown) (no (unknown) (unknown) decelerations.ivana (units (unknown) date) ssuring. unknown) (unknown) (no (unknown) (unknown) deliver with mild (units (unknown) date) traction with unknown) maternal pushing effort. At this time with (unknown) (no (unknown) (unknown) delivered without (units (unknown) date) difficulty. Mild unknown) shoulder dystocia, approximate 1 minute (unknown) (no (unknown) (unknown) frequently and (units (unknown) date) after the unknown) contraction due to vaginal pressure too. Her (unknown) (no (unknown) (unknown) from delivery of (units (unknown) date) head to delivery unknown) of infant. (unknown) (no (unknown) (unknown) had a normal (units (u nknown) date) appearing unknown) three-vessel cord. She had no perineal or vaginal (unknown) (no (unknown) (unknown) labor analgesia (units (unknown) date) and with last few unknown) minutes prior to delivery, she was using more (unknown) (no (unknown) (unknown) lacerations. (units (u nknown) date) unknown) (unknown) (no (unknown) (unknown) lightheadedness (units (unknown) date) gradually unknown) improved. (unknown) (no (unknown) (unknown) maternal pushing, (units (unknown) date) [place] corkscrew unknown) maneuver performed and shoulders and (unknown) (no (unknown) (unknown) maternal pushing. (units (unknown) date) She only had a unknown) light amount of bleeding after delivery of the (unknown) (no (unknown) (unknown) none (units (unkno wn) date) unknown) (unknown) (no (unknown) (unknown) periurethral (units (u nknown) date) areas were intact. unknown) The cervix palpated to be intact. (unknown) (no (unknown) (unknown) placed back in to (units (unknown) date) make Garcia unknown) position. Anterior shoulder still did not (unknown) (no (unknown) (unknown) placenta. (units (unkn own) date) unknown) (unknown) (no (unknown) (unknown) present. With (units ( unknown) date) pushing the unknown) shoulders did not deliver with ease. Patient's legs (unknown) (no (unknown) (unknown) time but (units (unkno wn) date) approximately 1 unknown) minute later did fully separate and delivered with (unknown) (no (unknown) (unknown) to and (units (unknown) date) head was delivered unknown) in a controlled fashion. No nuchal cord was (unknown) (no (unknown) (unknown) tracing obtained (units (unknown) date) showing normal FHR unknown) variability and no (unknown) (no (unknown) (unknown) were started, but (units (unknown) date) lightheadedness unknown) was felt to be due to using nitrous oxide for (unknown) (no (unknown) (unknown) with a gush of (units (unknown) date) blood. I unknown) recommended proceeding with clamping and cutting cord Result panel 136 (unknown) (no (unknown) (unknown) (no value) (units (unk nown) date) unknown) (unknown) (no (unknown) (unknown) (past 8 hours): (units (unknown) date) unknown) (unknown) (no (unknown) (unknown) 10/14/222027 (units ( unknown) date) unknown) (unknown) (no (unknown) (unknown) 03:06 03:06 (units (un known) date) 03:06 unknown) (unknown) (no (unknown) (unknown) 10/10/22 (units (unkno wn) date) 10/10/22 unknown) 10/10/22 (unknown) (no (unknown) (unknown) 10/11/22 05:48 (units (unknown) date) unknown) (unknown) (no (unknown) (unknown) Abdomen: Soft, (units (unknown) date) nontender, unknown) nondistended. Fundus@U, firm, nontender (unknown) (no (unknown) (unknown) Age/Sex: 22 / F (units (unknown) date) unknown) (unknown) (no (unknown) (unknown) Antibody Screen (units (unknown) date) Negative unknown) (unknown) (no (unknown) (unknown) Baso # (Auto) 0 (units (unknown) date) unknown) (unknown) (no (unknown) (unknown) Baso % (Auto) (units ( unknown) date) 0.1 unknown) (unknown) (no (unknown) (unknown) Blood Type A (units (u nknown) date) Positive unknown) (unknown) (no (unknown) (unknown) Comments: (units (unkn own) date) unknown) (unknown) (no (unknown) (unknown) : 2000 (units (unknown) date) Acct:[id number] unknown) (unknown) (no (unknown) (unknown) Date Patient (units (u nknown) date) Seen: 10/10/22 unknown) (unknown) (no (unknown) (unknown) Date of (units (unkno wn) date) Service: unknown) 10/10/22 (unknown) (no (unknown) (unknown) Eos # (Auto) 0 (units (unknown) date) unknown) (unknown) (no (unknown) (unknown) Eos % (Auto) (units (u nknown) date) 0.5 L unknown) (unknown) (no (unknown) (unknown) Exam Narrative: (units (unknown) date) unknown) (unknown) (no (unknown) (unknown) Exam (units (unkno wn) date) unknown) (unknown) (no (unknown) (unknown) Extremities: (units (u nknown) date) Trace pedal unknown) edema (unknown) (no (unknown) (unknown) General: (units (unkno wn) date) Well-appearing unknown) female (unknown) (no (unknown) (unknown) Hct 28.9 L (units (unk nown) date) unknown) (unknown) (no (unknown) (unknown) Hgb 9.6 L (units (unkn own) date) unknown) (unknown) (no (unknown) (unknown) [facility] (units (unknown) date) [address] unknown) [place] [address] (unknown) (no (unknown) (unknown) Laboratory (units (unk nown) date) Results - last unknown) 24 hr (unknown) (no (unknown) (unknown) Labs (units (unkno wn) date) unknown) (unknown) (no (unknown) (unknown) Labs: (units (unkno wn) date) unknown) (unknown) (no (unknown) (unknown) Lymph # (Auto) (units (unknown) date) 1700 unknown) (unknown) (no (unknown) (unknown) Lymph % (Auto) (units (unknown) date) 22.7 L unknown) (unknown) (no (unknown) (unknown) [id number] (units (unk nown) date) unknown) (unknown) (no (unknown) (unknown) MCH 27.7 (units (unkno wn) date) unknown) (unknown) (no (unknown) (unknown) MCHC 33.1 (units (unkn own) date) unknown) (unknown) (no (unknown) (unknown) MCV 83.6 (units (unkno wn) date) unknown) (unknown) (no (unknown) (unknown) Rich # (Auto) (units ( unknown) date) 600 unknown) (unknown) (no (unknown) (unknown) Rich % (Auto) (units ( unknown) date) 7.4 unknown) (unknown) (no (unknown) (unknown) Narrative (units (unkn own) date) unknown) (unknown) (no (unknown) (unknown) Neut # (Auto) (units ( unknown) date) 5300 unknown) (unknown) (no (unknown) (unknown) Neut % (Auto) (units ( unknown) date) 69.3 unknown) (unknown) (no (unknown) (unknown) baby (units (u nknown) date) status: doing unknown) well (unknown) (no (unknown) (unknown) feeding (units (unknown) date) status: unknown) exclusively breast feeding (unknown) (no (unknown) (unknown) 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 (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 (unknown) date) Note unknown) (unknown) (no (unknown) (unknown) Objective (units (unkn own) date) unknown) (unknown) (no (unknown) (unknown) Offered and (units (un known) date) will add some unknown) oxycodone due to the severe uterine cramping with (unknown) (no (unknown) (unknown) PPD 1/2 (units (unkno wn) date) unknown) (unknown) (no (unknown) (unknown) Patient (units (unkno wn) date) comments: other unknown) (feeling some intense uterine cramping, not fully (unknown) (no (unknown) (unknown) Patient: (units (unkno wn) date) Elma Booker unknown) R MR#: (unknown) (no (unknown) (unknown) Plt Count 158 (units ( unknown) date) unknown) (unknown) (no (unknown) (unknown) (units (unk nown) date) Assessment + unknown) Plan (unknown) (no (unknown) (unknown) Plan (units (unknown) date) unknown) (unknown) (no (unknown) (unknown) day: (units (unknown) date) 0 unknown) (unknown) (no (unknown) (unknown) plan (units (unknown) date) OB: routine unknown) care (unknown) (no (unknown) (unknown) Provider: (units (unkn own) date) Britney Wagner unknown) Indira MENDEZ (unknown) (no (unknown) (unknown) RBC 3.46 L (units (unk nown) date) unknown) (unknown) (no (unknown) (unknown) RDW 14.8 (units (unkno wn) date) unknown) (unknown) (no (unknown) (unknown) Result (units (unkno wn) date) Diagrams: unknown) (unknown) (no (unknown) (unknown) SARS-CoV-2 (units (unk nown) date) (PCR) Negative unknown) (unknown) (no (unknown) (unknown) Signed (units (unkno wn) date) By:<Electronical unknown) ly signed by Britney Wagner MD> (unknown) (no (unknown) (unknown) Subjective - OB (units (unknown) date) unknown) (unknown) (no (unknown) (unknown) Subjective (units (unk nown) date) unknown) (unknown) (no (unknown) (unknown) Temp 96.5F BP (units ( unknown) date) 110/76 P76 RR 17 unknown) (unknown) (no (unknown) (unknown) Time Patient (units (u nknown) date) Seen: 16:27 unknown) (unknown) (no (unknown) (unknown) Time Spent With (units (unknown) date) Patient unknown) (unknown) (no (unknown) (unknown) Time with (units (unkn own) date) patient: less unknown) than 15 minutes (unknown) (no (unknown) (unknown) Time: (units (unkno wn) date) unknown) (unknown) (no (unknown) (unknown) Total time (units (unk nown) date) spent is greater unknown) than 50% in coordination of care (as documented) at (unknown) (no (unknown) (unknown) Vital Signs (units (un known) date) unknown) (unknown) (no (unknown) (unknown) WBC 7.7 (units (unkno wn) date) unknown) (unknown) (no (unknown) (unknown) [Embedded Image (units (unknown) date) Not Available] unknown) (unknown) (no (unknown) (unknown) patient's (units (unkn own) date) floor/unit unknown) and/or counseling patient: (unknown) (no (unknown) (unknown) relieved with (units ( unknown) date) Ibuprofen. unknown) [place] normal) (unknown) (no (unknown) (unknown) this being her (units (unknown) date) 3rd delivery. unknown) Result panel 137 (unknown) (no (unknown) (unknown) (no value) (units (unk nown) date) unknown) (unknown) (no (unknown) (unknown) ( Keep your 6 (units ( unknown) date) week unknown) visit with your prior OB provider as scheduled (unknown) (no (unknown) (unknown) (past 8 hours): (units (unknown) date) unknown) (unknown) (no (unknown) (unknown) ) (units (unkno wn) date) unknown) (unknown) (no (unknown) (unknown) 05:48 (units (unkno wn) date) unknown) (unknown) (no (unknown) (unknown) 08:29 10/11/22 (units (unknown) date) unknown) (unknown) (no (unknown) (unknown) 08:42 (units (unkno wn) date) unknown) (unknown) (no (unknown) (unknown) 1 - 2 puff (units (unk nown) date) INHALATION unknown) DIRECTED (unknown) (no (unknown) (unknown) 100 mg PO BID (units ( unknown) date) Qty: 9 0RF unknown) (unknown) (no (unknown) (unknown) 10/10/22 02:32 (units (unknown) date) unknown) (unknown) (no (unknown) (unknown) 10/11/22 05:27 (units (unknown) date) unknown) (unknown) (no (unknown) (unknown) 10/11/22 05:48 (units (unknown) date) unknown) (unknown) (no (unknown) (unknown) 10/11/22 (units (unkno wn) date) unknown) (unknown) (no (unknown) (unknown) 20 mg PO (units (un known) date) DIRECTED unknown) (unknown) (no (unknown) (unknown) 22 yo (units ( unknown) date) presented @ [facility] unknown) 38weeks 0 days reporting regular painful (unknown) (no (unknown) (unknown) 25 mg PO (units (un known) date) DIRECTED unknown) (unknown) (no (unknown) (unknown) 324 mg PO DAILY (units (unknown) date) unknown) (unknown) (no (unknown) (unknown) 38 week (units (unkno wn) date) , unknown) delivered (unknown) (no (unknown) (unknown) 5 mg PO Q6H PRN (units (unknown) date) (Reason: Pain, unknown) Moderate (4-6)) Qty: 6 0RF (unknown) (no (unknown) (unknown) 6 mg SUBCUT 2XD (units (unknown) date) unknown) (unknown) (no (unknown) (unknown) 600 mg PO Q6HR (units (unknown) date) PRN (Reason: unknown) Pain, Mild (1-3)) Qty: 60 0RF (unknown) (no (unknown) (unknown) Activity: (units (unkn own) date) nothing in the unknown) vagina for 6 weeks, no tampons and no intercourse. (unknown) (no (unknown) (unknown) Age/Sex: 22 / F (units (unknown) date) unknown) (unknown) (no (unknown) (unknown) Britney Jacobson (units (unkn own) date) MD Kristy unknown) (unknown) (no (unknown) (unknown) Baso # (Auto) 0 (units (unknown) date) unknown) (unknown) (no (unknown) (unknown) Baso % (Auto) (units ( unknown) date) 0.5 unknown) (unknown) (no (unknown) (unknown) Catheter: 2-way (units (unknown) date) Farley unknown) (unknown) (no (unknown) (unknown) Comment: (units (unkno wn) date) unknown) (unknown) (no (unknown) (unknown) Consult to (units (unk nown) date) unknown) Clay Miner Routine (unknown) (no (unknown) (unknown) Consults: (units (unkn own) date) unknown) (unknown) (no (unknown) (unknown) Continued (units (unkn own) date) unknown) (unknown) (no (unknown) (unknown) : 2000 (units (unknown) date) Acct:[id number] unknown) (unknown) (no (unknown) (unknown) Date Patient (units (u nknown) date) Seen: 10/11/22 unknown) (unknown) (no (unknown) (unknown) Date of Service: (units (unknown) date) 10/10/22 unknown) (unknown) (no (unknown) (unknown) Date of (units (unkno wn) date) admission: unknown) (unknown) (no (unknown) (unknown) Depression (units (unk nown) date) unknown) (unknown) (no (unknown) (unknown) Diagnoses: (units (unk nown) date) unknown) (unknown) (no (unknown) (unknown) Diet/Activity/Tr (units (unknown) date) eatments unknown) (unknown) (no (unknown) (unknown) Diet: Regular (units ( unknown) date) unknown) (unknown) (no (unknown) (unknown) Discharge Data (units (unknown) date) unknown) (unknown) (no (unknown) (unknown) Discharge Date: (units (unknown) date) 10/11/22 unknown) (unknown) (no (unknown) (unknown) Discharge Health (units (unknown) date) Status unknown) (unknown) (no (unknown) (unknown) Discharge Plan (units (unknown) date) unknown) (unknown) (no (unknown) (unknown) Discharge (units (unkn own) date) Providers unknown) (unknown) (no (unknown) (unknown) Discharge (units (unkn own) date) Summary unknown) (unknown) (no (unknown) (unknown) Discharge orders (units (unknown) date) + Medications unknown) (unknown) (no (unknown) (unknown) Discharge (units (unkn own) date) provider: unknown) (unknown) (no (unknown) (unknown) Discontinued (units (u nknown) date) unknown) (unknown) (no (unknown) (unknown) Elemental (units (unkn own) date) Iron-90 unknown) (unknown) (no (unknown) (unknown) Eos # (Auto) 100 (units (unknown) date) unknown) (unknown) (no (unknown) (unknown) Eos % (Auto) 1.4 (units (unknown) date) L unknown) (unknown) (no (unknown) (unknown) Exam (units (unkno wn) date) unknown) (unknown) (no (unknown) (unknown) Follow (units (unkno wn) date) up/Referrals: unknown) (unknown) (no (unknown) (unknown) Hct 28.9 L (units (unk nown) date) unknown) (unknown) (no (unknown) (unknown) Britney Wagner (units (u nknown) date) MD Indira unknown) [Physician] (unknown) (no (unknown) (unknown) Hgb 9.7 L (units (unkn own) date) unknown) (unknown) (no (unknown) (unknown) Hospital Course (units (unknown) date) unknown) (unknown) (no (unknown) (unknown) Hospital Course: (units (unknown) date) unknown) (unknown) (no (unknown) (unknown) INHALE 1 TO 2 (units ( unknown) date) PUFFS BY MOUTH unknown) EVERY 4 HOURS NEEDED (unknown) (no (unknown) (unknown) Inject 1 pen (units (u nknown) date) needle unknown) subcutaneously twice a day as needed for pain (unknown) (no (unknown) (unknown) Instructions: DI (units (unknown) date) for Labor and unknown) Delivery, Vaginal , DI for (unknown) (no (unknown) (unknown) [facility] (units (unknown) date) [address] [place] [address] unknown) [place] [address] (unknown) (no (unknown) (unknown) Label Comments: (units (unknown) date) unknown) (unknown) (no (unknown) (unknown) Laboratory (units (unk nown) date) Results - last 24 unknown) hr (unknown) (no (unknown) (unknown) Labs (units (unkno wn) date) unknown) (unknown) (no (unknown) (unknown) Labs: (units (unkno wn) date) unknown) (unknown) (no (unknown) (unknown) Lymph # (Auto) (units (unknown) date) 1900 unknown) (unknown) (no (unknown) (unknown) Lymph % (Auto) (units (unknown) date) 21.7 L unknown) (unknown) (no (unknown) (unknown) [id number] (units (unk nown) date) unknown) (unknown) (no (unknown) (unknown) MCH 28.1 (units (unkno wn) date) unknown) (unknown) (no (unknown) (unknown) MCHC 33.5 (units (unkn own) date) unknown) (unknown) (no (unknown) (unknown) MCV 83.7 (units (unkno wn) date) unknown) (unknown) (no (unknown) (unknown) Mohaidand (units (unkno wn) date) MD Jolene unknown) (unknown) (no (unknown) (unknown) Patricia Fernández (units (unknown) date) MD jinny [Primary unknown) Care Provider] (unknown) (no (unknown) (unknown) Rich # (Auto) (units ( unknown) date) 600 unknown) (unknown) (no (unknown) (unknown) Rich % (Auto) (units ( unknown) date) 6.9 unknown) (unknown) (no (unknown) (unknown) Multidrug (units (unkn own) date) resistant unknown) organism: No MDRO (unknown) (no (unknown) (unknown) Neut # (Auto) (units ( unknown) date) 6100 unknown) (unknown) (no (unknown) (unknown) Neut % (Auto) (units ( unknown) date) 69.5 unknown) (unknown) (no (unknown) (unknown) New (units (unkno wn) date) unknown) (unknown) (no (unknown) (unknown) Objective (units (unkn own) date) unknown) (unknown) (no (unknown) (unknown) Patient (units (unkno wn) date) Disposition: Home unknown) (unknown) (no (unknown) (unknown) Patient: (units (unkno wn) date) Elma Booker unknown) R MR#: (unknown) (no (unknown) (unknown) Plt Count 172 (units ( unknown) date) unknown) (unknown) (no (unknown) (unknown) Prescriptions: (units (unknown) date) unknown) (unknown) (no (unknown) (unknown) Primary Care (units (u nknown) date) Provider: unknown) Omid Fernández (unknown) (no (unknown) (unknown) Primary care (units (u nknown) date) physician: unknown) (unknown) (no (unknown) (unknown) Provider (units (unkno wn) date) unknown) (unknown) (no (unknown) (unknown) Provider: (units (unkn own) date) Britney Wagner unknown) Indira MENDEZ (unknown) (no (unknown) (unknown) RBC 3.46 L (units (unk nown) date) unknown) (unknown) (no (unknown) (unknown) RDW 15.1 H (units (unk nown) date) unknown) (unknown) (no (unknown) (unknown) Report to your (units (unknown) date) healthcare unknown) provider any signs of infection, such as:: chills, (unknown) (no (unknown) (unknown) Result Diagrams: (units (unknown) date) unknown) (unknown) (no (unknown) (unknown) She received (units (u nknown) date) routine unknown) care in [place].? (unknown) (no (unknown) (unknown) Signed By: (units (unk nown) date) unknown) (unknown) (no (unknown) (unknown) Skin/Wound/Dress (units (unknown) date) ing Care unknown) (unknown) (no (unknown) (unknown) Stand Alone (units (un known) date) Forms: Discharge: unknown) Care, Patient Portal/API (unknown) (no (unknown) (unknown) Status post (units (un known) date) spontaneous unknown) vaginal delivery after spontaneous labor (unknown) (no (unknown) (unknown) Summary (units (unkno wn) date) unknown) (unknown) (no (unknown) (unknown) Temperature 96.5 (units (unknown) date) F L 96.5 F L unknown) (unknown) (no (unknown) (unknown) Time Patient (units (u nknown) date) Seen: 10:45 unknown) (unknown) (no (unknown) (unknown) Time Spent with (units (unknown) date) Patient unknown) (unknown) (no (unknown) (unknown) Time (units (unkno wn) date) attestation: unknown) (unknown) (no (unknown) (unknown) Total time spent (units (unknown) date) providing and/or unknown) coordinating discharge services: (unknown) (no (unknown) (unknown) Visit (units (unkno wn) date) Report/Discharge unknown) Packet (unknown) (no (unknown) (unknown) Vital Signs (units (un known) date) unknown) (unknown) (no (unknown) (unknown) WBC 8.7 (units (unkno wn) date) unknown) (unknown) (no (unknown) (unknown) [Embedded Image (units (unknown) date) Not Available] unknown) (unknown) (no (unknown) (unknown) albuterol (units (unkn own) date) sulfate 90 unknown) mcg/actuation HFA aerosol inhaler (unknown) (no (unknown) (unknown) already, per (units (u nknown) date) your choice after unknown) we discussed option with visit in our (unknown) (no (unknown) (unknown) contractions. (units ( unknown) date) shented in labor unknown) (unknown) (no (unknown) (unknown) famotidine 20 mg (units (unknown) date) tablet unknown) (unknown) (no (unknown) (unknown) fever and (units (unkn own) date) increased pain unknown) (unknown) (no (unknown) (unknown) goes to an (units (unk nown) date) answering service unknown) for emergencies after hours at night and on (unknown) (no (unknown) (unknown) ibuprofen 600 mg (units (unknown) date) Tablet unknown) (unknown) (no (unknown) (unknown) nitrofurantoin (units (unknown) date) monohyd/m-cryst unknown) [Macrobid] 100 mg Capsule (unknown) (no (unknown) (unknown) office with (units (un known) date) another provider unknown) ( since I am finished here this week) versus with (unknown) (no (unknown) (unknown) or if you do (units (u nknown) date) desire to do a 6 unknown) week visit with us. The office number (unknown) (no (unknown) (unknown) oxycodone 5 mg (units (unknown) date) Tablet unknown) (unknown) (no (unknown) (unknown) promethazine 25 (units (unknown) date) mg tablet unknown) (unknown) (no (unknown) (unknown) sumatriptan (units (un known) date) succinate 6 unknown) mg/0.5 mL syringe (unknown) (no (unknown) (unknown) weekends. (units (unkn own) date) unknown) (unknown) (no (unknown) (unknown) you may call our (units (unknown) date) office as well unknown) with any questions or problems after delivery (unknown) (no (unknown) (unknown) your primary OB (units (unknown) date) provider in unknown) [place]. Result panel 138 (unknown) (no (unknown) (unknown) (no value) (units (unk nown) date) unknown) (unknown) (no (unknown) (unknown) 10/23/22 (units (unkno wn) date) unknown) (unknown) (no (unknown) (unknown) Add'l Complaint: (units (unknown) date) unknown) (unknown) (no (unknown) (unknown) Age/Sex: 22 / F (units (unknown) date) Date of Service: unknown) (unknown) (no (unknown) (unknown) Allergies (units (unkn own) date) unknown) (unknown) (no (unknown) (unknown) [place] [place] (units ( unknown) date) [id number] unknown) (unknown) (no (unknown) (unknown) Anaphylaxis (units (un known) date) unknown) (unknown) (no (unknown) (unknown) Anxiety and (units (un known) date) depression unknown) (unknown) (no (unknown) (unknown) Attending Dr: (units ( unknown) date) Dina Herring.OPratima unknown) (unknown) (no (unknown) (unknown) Chief Complaint (units (unknown) date) unknown) (unknown) (no (unknown) (unknown) Chief Complaint: (units (unknown) date) mastitis unknown) (unknown) (no (unknown) (unknown) : 2000 (units (unknown) date) Acct:[id number] unknown) (unknown) (no (unknown) (unknown) Dept at (units (unkno wn) date) . unknown) (unknown) (no (unknown) (unknown) Documented By: (units (unknown) date) Dina Bhakta D.O. unknown) 10/23/22 1035 (unknown) (no (unknown) (unknown) Draft (units (unkno wn) date) unknown) (unknown) (no (unknown) (unknown) Family Practice (units (unknown) date) Office Visit unknown) (unknown) (no (unknown) (unknown) [facility]) (unknown) (no (unknown) (unknown) HPI (units (unkno wn) date) unknown) (unknown) (no (unknown) (unknown) History of PCOS (units (unknown) date) unknown) (unknown) (no (unknown) (unknown) Hx of (units (unkno wn) date) laparoscopy unknown) (unknown) (no (unknown) (unknown) Intake (units (unkno wn) date) unknown) (unknown) (no (unknown) (unknown) Loc: [facility] (units (unkno wn) date) unknown) (unknown) (no (unknown) (unknown) [id number] (units (unk nown) date) unknown) (unknown) (no (unknown) (unknown) Medical History (units (unknown) date) (Updated 10/10/22 unknown) @ 06:37 by Britney Wagner MD) (unknown) (no (unknown) (unknown) PFSH (units (unkno wn) date) unknown) (unknown) (no (unknown) (unknown) Patient: (units (unkno wn) date) Elma Booker unknown) R MR#: (unknown) (no (unknown) (unknown) Penicillins (units (un known) date) Allergy (Severe, unknown) Verified 01/16/22 16:18) (unknown) (no (unknown) (unknown) Reason For Visit (units (unknown) date) unknown) (unknown) (no (unknown) (unknown) Signed By: (units (unk nown) date) unknown) (unknown) (no (unknown) (unknown) Smoking Status: (units (unknown) date) Never smoker unknown) (unknown) (no (unknown) (unknown) Surgical History (units (unknown) date) (Updated 10/10/22 unknown) @ 06:37 by Britney Wagner MD) (unknown) (no (unknown) (unknown) This note may (units ( unknown) date) have been all or unknown) partially generated using voice recognition (unknown) (no (unknown) (unknown) Tobacco + (units (unkn own) date) Substance Use unknown) (unknown) (no (unknown) (unknown) Tobacco Status (units (unknown) date) unknown) (unknown) (no (unknown) (unknown) Visit Reasons: (units (unknown) date) mastitis unknown) (unknown) (no (unknown) (unknown) have occurred. (units (unknown) date) If there are any unknown) questions, please contact the Medical Records (unknown) (no (unknown) (unknown) may occur. (units (unk nown) date) Occasional unknown) wrong-word or 'sound-alike' substitutions may have (unknown) (no (unknown) (unknown) occurred due to (units (unknown) date) the inherent unknown) limitations of voice recognition software. Please (unknown) (no (unknown) (unknown) painful latch (units ( unknown) date) unknown) (unknown) (no (unknown) (unknown) read the note (units ( unknown) date) carefully and unknown) recognize, using context, where these substitutions (unknown) (no (unknown) (unknown) software. (units (unkn own) date) Although every unknown) effort is made to edit content, education reviewer errors Result panel 139 (unknown) (no (unknown) (unknown) (no value) (units (unk nown) date) unknown) (unknown) (no (unknown) (unknown) (1) Mastitis, (units ( unknown) date) left, acute: unknown) (unknown) (no (unknown) (unknown) (2) Pain of (units (un known) date) breast during unknown) : (unknown) (no (unknown) (unknown) 10/23/22 1044 (units ( unknown) date) unknown) (unknown) (no (unknown) (unknown) 10/23/22 (units (unkno wn) date) unknown) (unknown) (no (unknown) (unknown) 22y s/p (units (unknown) date) at 38wk. 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 and then got (unknown) (no (unknown) (unknown) Add'l Complaint: (units (unknown) date) unknown) (unknown) (no (unknown) (unknown) Age/Sex: 22 / F (units (unknown) date) Date of Service: unknown) (unknown) (no (unknown) (unknown) Allergies (units (unkn own) date) unknown) (unknown) (no (unknown) (unknown) [place], [place] (units ( unknown) date) [id number] unknown) (unknown) (no (unknown) (unknown) Anaphylaxis (units (un known) date) unknown) (unknown) (no (unknown) (unknown) Anxiety and (units (un known) date) depression unknown) (unknown) (no (unknown) (unknown) Assessment + (units (u nknown) date) Plan unknown) (unknown) (no (unknown) (unknown) Attending Dr: (units ( unknown) date) Dina Bhakta D.OPratima unknown) (unknown) (no (unknown) (unknown) Breast: adequate (units (unknown) date) glandular tissue unknown) and everted nipples b/l, L breast with very (unknown) (no (unknown) (unknown) Chief Complaint (units (unknown) date) unknown) (unknown) (no (unknown) (unknown) Chief Complaint: (units (unknown) date) mastitis unknown) (unknown) (no (unknown) (unknown) : 2000 (units (unknown) date) Acct:[id number] unknown) (unknown) (no (unknown) (unknown) Dept at (units (unkno wn) date) . unknown) (unknown) (no (unknown) (unknown) Details: (units (unkno wn) date) unknown) (unknown) (no (unknown) (unknown) Documented By: (units (unknown) date) Dina Bhakta D.O. unknown) 10/23/22 1035 (unknown) (no (unknown) (unknown) Exam Narrative (units (unknown) date) unknown) (unknown) (no (unknown) (unknown) Exam Narrative: (units (unknown) date) unknown) (unknown) (no (unknown) (unknown) Exam (units (unkno wn) date) unknown) (unknown) (no (unknown) (unknown) Family Practice (units (unknown) date) Office Visit unknown) (unknown) (no (unknown) (unknown) [facility]) (unknown) (no (unknown) (unknown) General: (units (unkno wn) date) pleasant, unknown) cooperative, sitting comfortably in no acute distress (unknown) (no (unknown) (unknown) HPI (units (unkno wn) date) unknown) (unknown) (no (unknown) (unknown) History of PCOS (units (unknown) date) unknown) (unknown) (no (unknown) (unknown) Hx of (units (unkno wn) date) laparoscopy unknown) (unknown) (no (unknown) (unknown) Intake (units (unkno wn) date) unknown) (unknown) (no (unknown) (unknown) Loc: [facility] (units (unkno wn) date) unknown) (unknown) (no (unknown) (unknown) [phone] (units (unk nown) date) unknown) (unknown) (no (unknown) (unknown) [place], [facility] for (units ( unknown) date) further details. unknown) (unknown) (no (unknown) (unknown) Mastitis (units (unkno wn) date) resolving, cont unknown) cephalexin. Home care reviewed. (unknown) (no (unknown) (unknown) Medical History (units (unknown) date) (Updated 10/10/22 unknown) @ 06:37 by Britney Wagner MD) (unknown) (no (unknown) (unknown) PFSH (units (unkno wn) date) unknown) (unknown) (no (unknown) (unknown) Patient: (units (unkno wn) date) Elma Booker unknown) R MR#: (unknown) (no (unknown) (unknown) Penicillins (units (un known) date) Allergy (Severe, unknown) Verified 01/16/22 16:18) (unknown) (no (unknown) (unknown) Plan (units (unkno wn) date) unknown) (unknown) (no (unknown) (unknown) Please see (units (unk nown) date) scanned maternal unknown) assessment, completed by Carlota Lunsford, (unknown) (no (unknown) (unknown) Reason For Visit (units (unknown) date) unknown) (unknown) (no (unknown) (unknown) Resp: normal (units (u nknown) date) effort, able to unknown) speak in complete sentences (unknown) (no (unknown) (unknown) [place], (units ([facility]) date) [facility]) details. (unknown) (no (unknown) (unknown) Signed By: (units (unk nown) date) <Electronically unknown) signed by Dina Bhakta D.O.> (unknown) (no (unknown) (unknown) Signed (units (unkno wn) date) unknown) (unknown) (no (unknown) (unknown) Smoking Status: (units (unknown) date) Never smoker unknown) (unknown) (no (unknown) (unknown) Surgical History (units (unknown) date) (Updated 10/10/22 unknown) @ 06:37 by Britney Wagner MD) (unknown) (no (unknown) (unknown) This note may (units ( unknown) date) have been all or unknown) partially generated using voice recognition (unknown) (no (unknown) (unknown) Time Coding (units (un known) date) Minutes Spent: unknown) (must be on same date of service/appointme nt) (unknown) (no (unknown) (unknown) Time Spent (units (unk nown) date) unknown) (unknown) (no (unknown) (unknown) Tobacco + (units (unkn own) date) Substance Use unknown) (unknown) (no (unknown) (unknown) Tobacco Status (units (unknown) date) unknown) (unknown) (no (unknown) (unknown) Total visit time (units (unknown) date) 22 minutes today, unknown) including 15 minutes face to face on history, (unknown) (no (unknown) (unknown) Visit Reasons: (units (unknown) date) mastitis unknown) (unknown) (no (unknown) (unknown) course. Please (units (unknown) date) see scanned unknown) maternal assessment, completed by Carlota (unknown) (no (unknown) (unknown) exam, and (units (unkn own) date) counseling, and 7 unknown) minutes reviewing, charting, and coordinating care. (unknown) (no (unknown) (unknown) faint pink tinge (units (unknown) date) to skin at top unknown) medial breast (unknown) (no (unknown) (unknown) have occurred. (units (unknown) date) If there are any unknown) questions, please contact the Medical Records (unknown) (no (unknown) (unknown) may occur. (units (unk nown) date) Occasional unknown) wrong-word or 'sound-alike' substitutions may have (unknown) (no (unknown) (unknown) nipples briceno to (units (unknown) date) help wean. unknown) Mastitis L breast, improving 4 days into cephalexin (unknown) (no (unknown) (unknown) occurred due to (units (unknown) date) the inherent unknown) limitations of voice recognition software. Please (unknown) (no (unknown) (unknown) painful latch (units ( unknown) date) unknown) (unknown) (no (unknown) (unknown) read the note (units ( unknown) date) carefully and unknown) recognize, using context, where these substitutions (unknown) (no (unknown) (unknown) software. (units (unkn own) date) Although every unknown) effort is made to edit content, education reviewer errors Result panel 140 (unknown) (no (unknown) (unknown) (no value) (units (unk nown) date) unknown) (unknown) (no (unknown) (unknown) (1) Mastitis, (units ( unknown) date) left, acute: unknown) (unknown) (no (unknown) (unknown) (2) Pain of (units (un known) date) breast during unknown) : (unknown) (no (unknown) (unknown) ADDENDUM (units (u nknown) date) unknown) (unknown) (no (unknown) (unknown) 10/23/22 1044 (units ( unknown) date) unknown) (unknown) (no (unknown) (unknown) 10/23/22 1053 (units ( unknown) date) unknown) (unknown) (no (unknown) (unknown) 10/23/22 (units (unkno wn) date) unknown) (unknown) (no (unknown) (unknown) 22y s/p (units (unknown) date) at 38wk. 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 and then got (unknown) (no (unknown) (unknown) Add'l Complaint: (units (unknown) date) unknown) (unknown) (no (unknown) (unknown) Addendum (units (unkno wn) date) Documented By: unknown) Simran SenOPratima (unknown) (no (unknown) (unknown) Addendum Signed (units (unknown) date) By: unknown) <Electronically signed by Dina Bhakta D.O.> (unknown) (no (unknown) (unknown) Age/Sex: 22 / F (units (unknown) date) Date of Service: unknown) (unknown) (no (unknown) (unknown) Allergies (units (unkn own) date) unknown) (unknown) (no (unknown) (unknown) [place], [place] (units ( unknown) date) [id number] unknown) (unknown) (no (unknown) (unknown) Anaphylaxis (units (un known) date) unknown) (unknown) (no (unknown) (unknown) Anxiety and (units (un known) date) depression unknown) (unknown) (no (unknown) (unknown) Assessment + (units (u nknown) date) Plan unknown) (unknown) (no (unknown) (unknown) Attending Dr: (units ( unknown) date) Dina KhalilOPratima unknown) (unknown) (no (unknown) (unknown) Breast: adequate (units (unknown) date) glandular tissue unknown) and everted nipples b/l, L breast with very (unknown) (no (unknown) (unknown) Chief Complaint (units (unknown) date) unknown) (unknown) (no (unknown) (unknown) Chief Complaint: (units (unknown) date) mastitis unknown) (unknown) (no (unknown) (unknown) : 2000 (units (unknown) date) Acct:[id number] unknown) (unknown) (no (unknown) (unknown) Dept at (units (unkno wn) date) . unknown) (unknown) (no (unknown) (unknown) Details: (units (unkno wn) date) unknown) (unknown) (no (unknown) (unknown) Documented By: (units (unknown) date) Dina Bhakta D.O. unknown) 10/23/22 1035 (unknown) (no (unknown) (unknown) Exam Narrative (units (unknown) date) unknown) (unknown) (no (unknown) (unknown) Exam Narrative: (units (unknown) date) unknown) (unknown) (no (unknown) (unknown) Exam (units (unkno wn) date) unknown) (unknown) (no (unknown) (unknown) Family Practice (units (unknown) date) Office Visit unknown) (unknown) (no (unknown) (unknown) [facility] unknown) (unknown) (no (unknown) (unknown) General: (units (unkno wn) date) pleasant, unknown) cooperative, sitting comfortably in no acute distress (unknown) (no (unknown) (unknown) HPI (units (unkno wn) date) unknown) (unknown) (no (unknown) (unknown) History of PCOS (units (unknown) date) unknown) (unknown) (no (unknown) (unknown) Hx of (units (unkno wn) date) laparoscopy unknown) (unknown) (no (unknown) (unknown) Intake (units (unkno wn) date) unknown) (unknown) (no (unknown) (unknown) Loc: [facility] (units (unkno wn) date) unknown) (unknown) (no (unknown) (unknown) [phone] (units (unk nown) date) unknown) (unknown) (no (unknown) (unknown) [place], [facility] for (units ( unknown) date) further details. unknown) (unknown) (no (unknown) (unknown) Mastitis (units (unkno wn) date) resolving, cont unknown) cephalexin. Home care reviewed. (unknown) (no (unknown) (unknown) Medical History (units (unknown) date) (Updated 12/29/22 unknown) @ 06:37 by Britney Wagner MD) (unknown) (no (unknown) (unknown) PFSH (units (unkno wn) date) unknown) (unknown) (no (unknown) (unknown) Patient: (units (unkno wn) date) Elma Booker unknown) R MR#: (unknown) (no (unknown) (unknown) Penicillins (units (un known) date) Allergy (Severe, unknown) Verified 01/16/22 16:18) (unknown) (no (unknown) (unknown) Plan (units (unkno wn) date) unknown) (unknown) (no (unknown) (unknown) Please see (units (unk nown) date) scanned maternal unknown) assessment, completed by Carlota Lunsford, (unknown) (no (unknown) (unknown) Reason For Visit (units (unknown) date) unknown) (unknown) (no (unknown) (unknown) Resp: normal (units (u nknown) date) effort, able to unknown) speak in complete sentences (unknown) (no (unknown) (unknown) [place], (units (unknown) date) [facility] for further unknown) details. (unknown) (no (unknown) (unknown) Signed By: (units (unk nown) date) <Electronically unknown) signed by Dina Bhakta D.O.> (unknown) (no (unknown) (unknown) Signed with (units (un known) date) Addenda unknown) (unknown) (no (unknown) (unknown) Smoking Status: (units (unknown) date) Never smoker unknown) (unknown) (no (unknown) (unknown) Surgical History (units (unknown) date) (Updated 10/10/22 unknown) @ 06:37 by Britney Wagner MD) (unknown) (no (unknown) (unknown) This note may (units ( unknown) date) have been all or unknown) partially generated using voice recognition (unknown) (no (unknown) (unknown) Time Coding (units (un known) date) Minutes Spent: unknown) (must be on same date of service/appointme nt) (unknown) (no (unknown) (unknown) Time Spent (units (unk nown) date) unknown) (unknown) (no (unknown) (unknown) Tobacco + (units (unkn own) date) Substance Use unknown) (unknown) (no (unknown) (unknown) Tobacco Status (units (unknown) date) unknown) (unknown) (no (unknown) (unknown) Total visit time (units (unknown) date) 22 minutes today, unknown) including 15 minutes face to face on history, (unknown) (no (unknown) (unknown) Visit Reasons: (units (unknown) date) mastitis unknown) (unknown) (no (unknown) (unknown) course. Please (units (unknown) date) see scanned unknown) maternal assessment, completed by Carlota (unknown) (no (unknown) (unknown) exam, and (units (unkn own) date) counseling, and 7 unknown) minutes reviewing, charting, and coordinating care. (unknown) (no (unknown) (unknown) faint pink tinge (units (unknown) date) to skin at top unknown) medial breast (unknown) (no (unknown) (unknown) have occurred. (units (unknown) date) If there are any unknown) questions, please contact the Medical Records (unknown) (no (unknown) (unknown) may occur. (units (unk nown) date) Occasional unknown) wrong-word or 'sound-alike' substitutions may have (unknown) (no (unknown) (unknown) nipples briceno to (units (unknown) date) help wean. unknown) Mastitis L breast, improving 4 days into cephalexin (unknown) (no (unknown) (unknown) occurred due to (units (unknown) date) the inherent unknown) limitations of voice recognition software. Please (unknown) (no (unknown) (unknown) painful latch (units ( unknown) date) unknown) (unknown) (no (unknown) (unknown) read the note (units ( unknown) date) carefully and unknown) recognize, using context, where these substitutions (unknown) (no (unknown) (unknown) software. (units (unkn own) date) Although every unknown) effort is made to edit content, education reviewer errors (unknown) (no (unknown) (unknown) vitals: BP (units (unk nown) date) 100/60, HR 67, T unknown) 97.8 Social History date description facility 2022-10-10 00:00 Never smoked tobacco (finding) [facility] 2022-10-23 00:00 Never smoked tobacco (finding) [facility] Vital Signs date measurement value units 2022-09-10 00:00 BMI 33.95 kg/m2 2022-09-10 00:00 BP_diastolic 72 mmHg 2022-09-10 00:00 BP_systolic 110 mmHg 2022-09-10 00:00 heart_rate 99 /min 2022-09-10 00:00 height_metric 170.18 cm 2022-09-10 00:00 height_standard 67 in 2022-09-10 00:00 respiration_rate 17 /min 2022-09-10 00:00 temperature_metric 37 C 2022-09-10 00:00 temperature_standard 98.6 F 2022-09-10 00:00 weight_metric 97.98 kg 2022-09-10 00:00 weight_standard 216 lb 2022-10-11 00:00 BP_diastolic 76 mmHg 2022-10-11 00:00 BP_systolic 110 mmHg 2022-10-11 00:00 heart_rate 76 /min 2022-10-11 00:00 height_metric 170.18 cm 2022-10-11 00:00 height_standard 67 in 2022-10-11 00:00 respiration_rate 17 /min 2022-10-11 00:00 temperature_metric 35.83 C 2022-10-11 00:00 temperature_standard 96.5 F 2022-10-11 00:00 weight_metric 97.52 kg 2022-10-11 00:00 weight_standard 214.99 lb 2022-10-19 00:00 BMI 31.12 kg/m2 2022-10-19 00:00 BP_diastolic 76 mmHg 2022-10-19 00:00 BP_systolic 111 mmHg 2022-10-19 00:00 heart_rate 126 /min 2022-10-19 00:00 height_metric 170.18 cm 2022-10-19 00:00 height_standard 67 in 2022-10-19 00:00 respiration_rate 18 /min 2022-10-19 00:00 temperature_metric 37.72 C 2022-10-19 00:00 temperature_standard 99.9 F 2022-10-19 00:00 weight_metric 89.81 kg 2022-10-19 00:00 weight_standard 198 lb
== END 2022-12-08 08:18 | disposition home or self-care (01) ==
LOC: ED 07:37
DX: H66.91 Otitis media, unspecified, right ear (principal); Z88.0 Allergy status to penicillin
CPT/HCPCS: 99282; 99283; A9270

== ENCOUNTER 2022-12-10 19:20 | Emergency (ER) | payer OTHER ==
[2022-12-10 19:32] VITALS: BP 130/83
[2022-12-10] MEDS ORDERED: HYDROcod/ACETAM 5/325 MG TABLET PO STA (19:41)
[2022-12-10] MEDS ORDERED: AMOX/CLAV 875 MG/125 MG TABLET PO STA (19:41)
[2022-12-10] MEDS ORDERED: CIPROFLOX/DEXAMETH OTIC DROPS RIGHTEAR STA (19:41)
--- NOTE | 2022-12-10 19:47 | ED Physician Documentation ---
PD HPI HEENT - Stated complaint Stated Complaint: RIGHT EAR PX - Chief complaint Chief Complaint: Heent - History obtained from History obtained from: Patient - Additional information Additional information: 22-year-old woman who has had pain in the right ear for the last 4 days. Seen by my partner 2 days ago and put on Zithromax noting a penicillin allergy (although the patient says she has had Augmentin before without issue). Pain is worse now with radiation down the right neck and drainage from the ear. She is breast-feeding a 2-month-old. PD PAST MEDICAL HISTORY - Past Medical History Cardiovascular: None Respiratory: None Neuro: None Endocrine/Autoimmune: None GI: None REGISTERED NURSE NURSERY: None : None HEENT: Chronic vision loss Psych: Depression Musculoskeletal: None Derm: None - Past Surgical History Past Surgical History: No - Present Medications Home Medications: Ambulatory Orders Medication Instructions Recorded Confirmed Ondansetron Odt [Zofran] 4 mg TL Q6H PRN #10 tablet 11/20/21 Azithromycin [Zithromax] 1 tab PO DAILY #4 tab 12/08/22 Amox/Clav 875/125 [Augmentin] 1 each PO Q12H #20 tablet 12/10/22 Ciproflox/Dexameth Otic Drops 4 drops OT BID #7.5 ml 12/10/22 [Ciprodex Otic Drops] HYDROcod/ACETAM 5/325 [[place] 5/325] 1 - 2 tab PO Q6H PRN #15 tablet 12/10/22 Sertraline [Zoloft] 50 mg PO DAILY 12/10/22 12/10/22 Sumatriptan Succinate [Imitrex] 100 mg PO PRN PRN 12/10/22 12/10/22 metFORMIN [Glucophage] 500 mg PO ONCE 12/10/22 12/10/22 - Allergies Allergies/Adverse Reactions: Allergies Allergy/AdvReac Type Severity Reaction Status Date / Time Penicillins Allergy Anaphylaxis Verified 12/08/22 07:46 hydromorphone AdvReac Hallucinati Verified 12/08/22 07:46 ons - Social History Does the pt smoke?: No Smoking Status: Never smoker Does the pt drink ETOH?: No Does the pt have substance abuse?: No - Immunizations Immunizations are current?: Yes - POLST Patient has POLST: No PD ED PE NORMAL - Vitals Vital signs reviewed: Yes - General General: Alert and oriented X 3, Other (She appears uncomfortable) - HEENT HEENT: Other (Severe right otitis media likely with perforation. I do not see a specific perforation, but there is purulent material in the canal. She is not tender over the mastoid but is tender over the sternocleidomastoid.) - Neck Neck: Supple, no meningeal sign, No bony TTP - Neuro Neuro: Alert and oriented X 3, Normal speech Results - Vitals Vitals: Vital Signs - 24 hr 12/10/22 19:29 Temperature 36.7 C Heart Rate 67 Respiratory 19 Rate Blood Pressure 130/83 H O2 Saturation 99 Oxygen O2 Source Room air Departure - Departure Disposition: Home, Self Care Clinical Impression: Right otitis media Qualifiers: Otitis media type: suppurative Chronicity: acute Recurrence: non-recurrent Spontaneous tympanic membrane rupture: with spontaneous rupture Qualified Code(s): H66.011 - Acute suppurative otitis media with spontaneous rupture of ear drum, right ear Condition: Good Record reviewed to determine appropriate education?: Yes Instructions: ED Otitis Media Acute Adult Prescriptions: Amox/Clav 875/125 [Augmentin] 1 each PO Q12H #20 tablet Ciproflox/Dexameth Otic Drops [Ciprodex Otic Drops] 4 drops OT BID #7.5 ml HYDROcod/ACETAM 5/325 [[place] 5/325] 1 - 2 tab PO Q6H PRN #15 tablet PRN Reason: Pain Comments: Now that she have the eardrum rupture, we are changing her antibiotics and also adding an antibiotic drop. You do need to see an ENT physician in about a week to recheck the eardrum rupture. The closest is in [place], the phone number is [phone]. Return for new or worsening symptoms. I sent your prescriptions electronically to [facility] in [place]. I am prescribing a short course of narcotic pain medication for you. These are potentially dangerous and addictive medications that should be used carefully. These medications may constipate you. Take an aoyb-[id number]-teoercr stool softener (docusate) twice daily with plenty of water while taking these medications. If y ou go 24 hours without a bowel movement, take [id number] miralax, per package instructions. Do not drink or drive while taking these medications. If you received narcotic or sedating medications while in the emergency department, do not drive for 24 hours. Store this medication in a safe, secure place and out of reach of children. It is a violation of federal law to give or sell this medication to another person or to use in a manner other than prescribed. The ED will not refill narcotic prescriptions, including prescriptions lost or stolen. To dispose of unwanted medications: 1. [facility] at [address] in [place] has a medication drop box. They accept prescription medications (in pill form) Friday through Friday 9:00 a.m. to 5:00 p.m. 2. [facility] [employer] accepts prescription medications (in pill form only) for disposal year round. Call for more information. 3. Contact the [facility] for the next [facility] sponsored prescription drug collection event. , [phone], or [phone]; Note that many narcotic pain relievers also contain Tylenol/acetaminophen. Please ensure that your total dose of acetaminophen from all sources does not exceed 3 g (3000 mg) per day.
[2022-12-10] MEDS ORDERED: HYDROcod/ACET 5/325 Prepack 4 PO STA (19:49)
--- OUTSIDE RECORDS SUMMARY | 2022-12-10 19:55 | EXTERNAL MEDICAL SUMMARY RPT | Continuity of Care Document ---
:2000 Author Organization [facility] Address [address] [place] [address] Phone Care Team Providers Name Role Phone Unavailable Unavailable Unavailable Nakul Mendez, Roberto Unavailable Unavailable Omid Fernández Unavailable Unavailable Edie Skinner, Allison Unavailable Unavailable Allergies and Intolerances date description facility type (no date) [facility] (unknown) Encounters No information. Functional Status No information. Immunizations No information. Medications date description facility 2022-10-19 00:00 cephalexin All 2022-09-11 00:00 bupropion hcl All 2022-10-19 00:00 bupropion hcl All 2022-10-21 00:00 bupropion hcl All 2022-09-11 00:00 bupropion hcl All 2022-10-19 00:00 bupropion hcl All 2022-10-21 00:00 bupropion hcl All 2022-10-19 00:00 amoxicillin-pot clavulanate All 2022-10-19 00:00 amoxicillin-pot clavulanate All 2022-10-19 00:00 cephalexin All 2022-10-11 00:00 Oxycodone [facility] 2022-10-10 00:00 Sumatriptan Succinate [facility] 2022-10-11 00:00 Ibuprofen [facility] 2022-10-10 00:00 Albuterol Sulfate [facility] 2022-09-11 00:00 bupropion hcl All 2022-10-19 00:00 bupropion hcl All 2022-10-21 00:00 bupropion hcl All 2022-10-19 00:00 cephalexin All 2022-10-19 00:00 cephalexin All 2022-10-10 00:00 Famotidine [facility] 2022-10-19 00:00 amoxicillin-pot clavulanate All 2022-09-11 00:00 bupropion hcl All 2022-10-19 00:00 bupropion hcl All 2022-10-21 00:00 bupropion hcl All 2022-10-10 00:00 Sumatriptan Succinate [facility] 2022-10-19 00:00 amoxicillin-pot clavulanate All 2022-10-10 00:00 Promethazine [facility] 2022-09-11 00:00 bupropion hcl All 2022-10-19 00:00 bupropion hcl All 2022-10-21 00:00 bupropion hcl All Problems date description facility 2022-10-10 00:00 Anxiety and depression [facility] 2022-10-15 14:41 Other mental disorders complicating chi ldbirth [facility] 2022-10-15 15:00 Other mental disorders complicating chi ldbirth [facility] 2022-10-19 00:00 Inflammation of skin and/or subcutaneou s tissue All 2022-10-19 00:00 Nonpurulent mastitis associated with chi ldbirth, All unspecified as to episode of care or not applicable 2022-10-19 00:00 Nonpurulent mastitis associated with la ctation All Procedures date description facility 2022-10-10 00:00 Delivery of Products of Conception, [facility] Approach 2022-10-19 00:00 Visit Code Hold All Results/Labs test date author facility value [...] (unknown) (unknown) : 2000 (units (unknown) date) Acct:[id number] unknown) (unknown) (no (unknown) (unknown) Date Patient [...] (unknown) date) unknown) (unknown) (no (unknown) (unknown) [facility] (units (unknown) date) [address] [place] [address] [address] unknown) [place] [address] (unknown) (no (unknown) (unknown) Last OB Lab (units (un known) date) Results: unknown) (unknown) (no (unknown) (unknown) [id number] (units (unk nown) date) unknown) (unknown) (no (unknown) (unknown) Medication (units (unk nown) date) Instructions unknown) Recorded Confirmed Type (unknown) (no (unknown) (unknown) Meds (units (unkno wn) date) unknown) (unknown) (no (unknown) (unknown) OB HPI (units (unkno wn) date) unknown) (unknown) (no (unknown) (unknown) [facility] History + (units (unknown) date) Physical unknown) [...] (unknown) : (units (unkn own) 2000 unknown) Acct:[id number] (unknown) (no date) (unknown) (unknown) Date of (units (unkn own) Service: unknown) 10/10/22 (unknown) (no date) (unknown) (unknown) Delivery (units (unkn own) date: 10/10/22 unknown) (unknown) (no date) (unknown) (unknown) [facility] (units (unkn own[facility] [address] unknown) [address] [place] [address] (unknown) (no date) (unknown) (unknown) Labor + (units (unkn own) Delivery unknown) (unknown) (no date) (unknown) (unknown) [id number] (units (un known) unknown) (unknown) (no date) (unknown) (unknown) [facility] (units (unkn own) Procedure Note unknown) (unknown) [...] (unknown) (unknown) : 2000 (units (unknown) date) Acct:[id number] unknown) (unknown) (no (unknown) (unknown) Date Patient [...] (unknown) date) unknown) (unknown) (no (unknown) (unknown) [facility] (units (unknown) date) [address] unknown) [place] [address] (unknown) (no (unknown) (unknown) Labs (units (unkno wn) date) unknown) (unknown) (no (unknown) (unknown) Last OB Lab (units (un known) date) Results: unknown) (unknown) (no (unknown) (unknown) [id number] (units (unk nown) date) unknown) (unknown) (no (unknown) (unknown) Medication (units (unk nown) date) Instructions unknown) Recorded Confirmed Type (unknown) (no (unknown) (unknown) Meds (units (unkno wn) date) unknown) (unknown) (no (unknown) (unknown) OB HPI (units (unkno wn) date) unknown) (unknown) (no (unknown) (unknown) [facility] History + (units (unknown) date) Physical unknown) [...] (unknown) (unknown) : 2000 (units (unknown) date) Acct:[id number] unknown) (unknown) (no (unknown) (unknown) Date Patient [...] (unknown) (no (unknown) (unknown) Evaluation (units (unk n) date) unknown) (unknown) (no (unknown) (unknown) External [...] (no (unknown) (unknown) : 7 (units (unk n) date) unknown) (unknown) (no (unknown) (unknown) HCAB: negative (units (unknown) date) unknown) (unknown) (no (unknown) (unknown) Hematocrit 28.9 (units (unknown) date) % (36-46) L unknown) 10/10/22 03:06 (unknown) (no (unknown) (unknown) Hemoglobin 9.6 (units (unknown) date) g/dL (12.0-16.0) unknown) L 10/10/22 03:06 (unknown) (no (unknown) (unknown) History of (units (unk n) date) Present Condition unknown) (unknown) (no (unknown) (unknown) Home Medications (units (unknown) date) and Allergies unknown) (unknown) (no (unknown) (unknown) Home Medications (units (unknown) date) unknown) (unknown) (no (unknown) (unknown) In early (units (unkno wn) date) she had unknown) nausea and vomiting and was on antiemetics. (unknown) (no (unknown) (unknown) [facility] (units (unknown) date) [address] unknown) [place] [address] (unknown) (no (unknown) (unknown) Labs (units (unkno wn) date) unknown) (unknown) (no (unknown) (unknown) Last OB Lab (units (un known) date) Results: unknown) (unknown) (no (unknown) (unknown) [id number] (units (unk nown) date) unknown) (unknown) (no [...] wn) date) unknown) (unknown) (no (unknown) (unknown) [facility] History + (units (unknown) date) Physical unknown) [...] (unknown) (unknown) Provider: (units (unkn own) date) Briteny Wagner unknown) Indira MENDEZ (unknown) (no (unknown) [...] (u nknown) date) routine unknown) care in [place]. She awoke this morning with (unknown) (no [...] came unknown) here since with living in [place], our (unknown) (no (unknown) (unknown) monohydrate/macr (units [...] (unknown) (unknown) : 2000 (units (unknown) date) Acct:[id number] unknown) (unknown) (no (unknown) (unknown) Date Patient [...] was on antiemetics. (unknown) (no (unknown) (unknown) [facility] (units (unknown) date) [address] unknown) [place] [address] (unknown) (no (unknown) (unknown) Labs (units (unkno wn) date) unknown) (unknown) (no (unknown) (unknown) Last OB Lab (units (un known) date) Results: unknown) (unknown) (no (unknown) (unknown) Lower extremity: (units (unknown) date) Yes normal to unknown) inspection; No edema (unknown) (no (unknown) (unknown) [id number] (units (unk nown) date) unknown) (unknown) (no [...] wn) date) unknown) (unknown) (no (unknown) (unknown) [facility] History + (units (unknown) date) Physical unknown) [...] (unknown) Presents with (units ( unknown) date) employment representative an S/O unknown) accompanying her. (unknown) (no [...] (u nknown) date) routine unknown) care in [place]. She awoke this morning with (unknown) (no [...] came unknown) here since with living in [place], our (unknown) (no (unknown) (unknown) monohydrate/macr (units [...] later due to report of vaginal pressure: /-3, (unknown) (no (unknown) (unknown) sentences (units (unkn [...] (unknown) (unknown) : 2000 (units (unknown) date) Acct:[id number] unknown) (unknown) (no (unknown) (unknown) Date of [...] < 3 hours (unknown) (no (unknown) (unknown) [facility] (units (unknown) date) [address] unknown) [place] [address] (unknown) (no (unknown) (unknown) [facility] (units (unknown) date) Description: None unknown) (unknown) (no (unknown) (unknown) Labor + Delivery (units (unknown) date) unknown) (unknown) (no (unknown) (unknown) [id number] (units (unk nown) date) unknown) (unknown) (no (unknown) (unknown) Narrative: (units (unk nown) date) unknown) (unknown) (no (unknown) (unknown) Baby (units (u nknown) date) unknown) (unknown) (no (unknown) (unknown) [facility] Procedure (units (unknown) date) Note unknown) (unknown) (no (unknown) (unknown) On inspection she (units (unknown) date) had no obstetrical unknown) lacerations, the perineum, vagina, (unknown) (no (unknown) (unknown) Patient: (units (o wn) date) Elma Booker R unknown) MR#: (unknown) (no (unknown) (unknown) Placenta delivery (units (unknown) date) description: unknown) Spontaneous (unknown) (no (unknown) (unknown) Plan for (units (o wn) date) aftercare: Routine unknown) care (unknown) (no (unknown) (unknown) (units (unk nown) date) unknown) (unknown) (no (unknown) (unknown) Provider: (units ( own) date) Britney Wagner unknown) (unknown) (no (unknown) (unknown) Pt presented with (units (unknown) date) frequent unknown) uncomfortable contractions, in active labor. (unknown) (no (unknown) (unknown) Route of (units (o wn) date) delivery: unknown) (unknown) (no (unknown) (unknown) Routine IV (units () date) Pitocin was unknown) started. her bleeding [...] (unknown) date) head to delivery unknown) of . (unknown) (no (unknown) (unknown) had a normal [...] (unknown) (unknown) : 2000 (units (unknown) date) Acct:[id number] unknown) (unknown) (no (unknown) (unknown) Date Patient [...] own) date) unknown) (unknown) (no (unknown) (unknown) [facility] (units (unknown) date) [address] unknown) [place] [address] (unknown) (no (unknown) (unknown) Laboratory (units (unk [...] 22.7 L unknown) (unknown) (no (unknown) (unknown) [id number] (units (unk nown) date) unknown) (unknown) (no (unknown) (unknown) MCH 27.7 (units (unkno wn) date) unknown) (unknown) (no (unknown) (unknown) MCHC 33.1 (units (unkn own) date) unknown) (unknown) (no (unknown) (unknown) MCV 83.6 (units (unkno wn) date) unknown) (unknown) (no (unknown) (unknown) [place] # (Auto) (units ( unknown) date) 600 unknown) (unknown) (no (unknown) (unknown) [place] % (Auto) (units ( unknown) date) 7.4 [...] exclusively breast feeding (unknown) (no (unknown) (unknown) [facility] Progress (units (unknown) date) Note unknown) (unknown) [...] Consult to (units (unk nown) date) unknown) [facility]ct Managers Routine (unknown) (no (unknown) (unknown) Consults: (units (unkn own) date) unknown) (unknown) (no (unknown) (unknown) : 2000 (units (unknown) date) Acct:[id number] unknown) (unknown) (no (unknown) (unknown) Date Patient [...] needed for pain (unknown) (no (unknown) (unknown) [facility] (units (unknown) date) [address] [place] [address] [address] unknown) [place] [address] (unknown) (no (unknown) (unknown) Label Comments: (units [...] 21.7 L unknown) (unknown) (no (unknown) (unknown) [id number] (units (unk nown) date) unknown) (unknown) (no (unknown) (unknown) MCH 28.1 (units (unkno wn) date) unknown) (unknown) (no (unknown) (unknown) MCHC 33.5 (units (unkn own) date) unknown) (unknown) (no (unknown) (unknown) MCV 83.7 (units (unkno wn) date) unknown) (unknown) (no (unknown) (unknown) Mohammad (units (unkno wn) date) MD Jolene unknown) (unknown) (no (unknown) (unknown) Patricia Fernández (units (unknown) date) MD jinny [Primary unknown) Care Provider] (unknown) (no (unknown) (unknown) [place] # (Auto) (units ( unknown) date) 600 unknown) (unknown) (no (unknown) (unknown) [place] % (Auto) (units ( unknown) date) 6.9 [...] (unknown) (unknown) : 2000 (units (unknown) date) Acct:[id number] unknown) (unknown) (no (unknown) (unknown) Date of [...] < 3 hours (unknown) (no (unknown) (unknown) [facility] (units (unknown) date) [address] unknown) [place] [address] (unknown) (no (unknown) (unknown) L[facility]D [facility] (units (unknown) date) Description: None unknown) (unknown) (no (unknown) (unknown) Labor + Delivery (units (unknown) date) unknown) (unknown) (no (unknown) (unknown) [id number] (units (unk nown) date) unknown) (unknown) (no (unknown) (unknown) Narrative: (units (unk nown) date) unknown) (unknown) (no (unknown) (unknown) [place] Baby (units (u nknown) date) unknown) (unknown) (no (unknown) (unknown) [facility] Procedure (units (unknown) date) Note unknown) (unknown) (no (unknown) (unknown) On inspection she (units (unknown) date) had no obstetrical unknown) lacerations, the perineum, vagina, (unknown) (no (unknown) (unknown) Patient: (units (unkno wn) date) Jhony,Elma R unknown) MR#: (unknown) (no (unknown) (unknown) [...] lightheadedness (unknown) (no (unknown) (unknown) Signed (units (o wn) date) By:<Electronically unknown) signed by Britney [...] corkscrew unknown) maneuver performed and shoulders and infant (unknown) (no (unknown) (unknown) maternal pushing. (units [...] (unknown) (unknown) : 2000 (units (unknown) date) Acct:[id number] unknown) (unknown) (no (unknown) (unknown) Date Patient [...] own) date) unknown) (unknown) (no (unknown) (unknown) [facility] (units (unknown) date) [address] unknown) [place] [address] (unknown) (no (unknown) (unknown) Laboratory (units (unk [...] 22.7 L unknown) (unknown) (no (unknown) (unknown) [id number] (units (unk nown) date) unknown) (unknown) (no (unknown) (unknown) MCH 27.7 (units (unkno wn) date) unknown) (unknown) (no (unknown) (unknown) MCHC 33.1 (units (unkn own) date) unknown) (unknown) (no (unknown) (unknown) MCV 83.6 (units (unkno wn) date) unknown) (unknown) (no (unknown) (unknown) [place] # (Auto) (units ( unknown) date) 600 unknown) (unknown) (no (unknown) (unknown) [place] % (Auto) (units ( unknown) date) 7.4 unknown) (unknown) (no (unknown) (unknown) Narrative (units (unkn own) date) unknown) (unknown) (no (unknown) (unknown) Neut # (Auto) (units ( unknown) date) 5300 unknown) (unknown) (no (unknown) (unknown) Neut % (Auto) (units ( unknown) date) 69.3 unknown) (unknown) (no (unknown) (unknown) [place] baby (units (u nknown) date) status: doing unknown) well (unknown) (no (unknown) (unknown) [place] feeding (units (unknown) date) status: unknown) exclusively breast feeding (unknown) (no (unknown) (unknown) [facility] Progress (units (unknown) date) Note unknown) (unknown) [...] (unknown) date) unknown) (unknown) (no (unknown) (unknown) Delia (units (unkn own) date) MD Kristy unknown) [...] Consult to (units (unk nown) date) unknown) [facility]ct Managers Routine (unknown) (no (unknown) (unknown) Consults: (units (unkn own) date) unknown) (unknown) (no (unknown) (unknown) Continued (units (unkn own) date) unknown) (unknown) (no (unknown) (unknown) : 2000 (units (unknown) date) Acct:[id number] unknown) (unknown) (no (unknown) (unknown) Date Patient [...] , DI for (unknown) (no (unknown) (unknown) [facility] (units (unknown) date) [address] unknown) [place] [address] (unknown) (no (unknown) (unknown) Label Comments: (units [...] 21.7 L unknown) (unknown) (no (unknown) (unknown) [id number] (units (unk nown) date) unknown) (unknown) (no (unknown) (unknown) MCH 28.1 (units (unkno wn) date) unknown) (unknown) (no (unknown) (unknown) MCHC 33.5 (units (unkn own) date) unknown) (unknown) (no (unknown) (unknown) MCV 83.7 (units (unkno wn) date) unknown) (unknown) (no (unknown) (unknown) Mohammad (units (unkno wn) date) MD Jolene unknown) (unknown) (no (unknown) (unknown) Patricia Fernández (units (unknown) date) MD jinny [Primary unknown) Care Provider] (unknown) (no (unknown) (unknown) [place] # (Auto) (units ( unknown) date) 600 unknown) (unknown) (no (unknown) (unknown) [place] % (Auto) (units ( unknown) date) 6.9 [...] (u nknown) date) routine unknown) care in [place] (unknown) (no (unknown) (unknown) Signed By: (units [...] OB (units (unknown) date) provider in unknown) [place]. Result panel 138 (unknown) (no (unknown) (unknown) (no value) (units (unk nown) date) unknown) (unknown) (no (unknown) (unknown) 10/23/22 (units (unkno wn) date) unknown) (unknown) (no (unknown) (unknown) Add'l Complaint: (units (unknown) date) unknown) (unknown) (no (unknown) (unknown) Age/Sex: 22 / F (units (unknown) date) Date of Service: unknown) (unknown) (no (unknown) (unknown) Allergies (units (unkn own) date) unknown) (unknown) (no (unknown) (unknown) [place], [place] (units ( unknown) date) [address] unknown) (unknown) (no (unknown) (unknown) Anaphylaxis (units (un known) date) unknown) (unknown) (no (unknown) (unknown) Anxiety and (units (un known) date) depression unknown) (unknown) (no (unknown) (unknown) Attending Dr: (units ( unknown) date) Dina Bhakta D.O. unknown) (unknown) (no (unknown) (unknown) Chief Complaint (units (unknown) date) unknown) (unknown) (no (unknown) (unknown) Chief Complaint: (units (unknown) date) mastitis unknown) (unknown) (no (unknown) (unknown) : 2000 (units (unknown) date) Acct:[id number] unknown) (unknown) (no (unknown) (unknown) Dept at [...] wn) date) unknown) (unknown) (no (unknown) (unknown) [id number] (units (unk nown) date) unknown) (unknown) (no [...] unknown) effort is made to edit content, spoon maker errors Result panel 139 (unknown) (no (unknown) [...] own) date) unknown) (unknown) (no (unknown) (unknown) [place], [place] (units ( unknown) date) [address] unknown) (unknown) (no (unknown) (unknown) Anaphylaxis (units [...] (unknown) (unknown) : 2000 (units (unknown) date) Acct:[id number] unknown) (unknown) (no (unknown) (unknown) Dept at [...] wn) date) unknown) (unknown) (no (unknown) (unknown) [id number] (units (unk nown) date) unknown) (unknown) (no [...] (unknown) (unknown) [place], (units (unknown) date) [facility] for further unknown) details. (unknown) (no (unknown) [...] unknown) effort is made to edit content, spoon maker errors Result panel 140 (unknown) (no (unknown) [...] (units (unkno wn) date) Documented By: unknown) Dina Bhakta D.O. (unknown) (no (unknown) (unknown) Addendum Signed (units (unknown) date) By: unknown) <Electronically signed by Dina Bhakta D.O.> (unknown) (no (unknown) (unknown) Age/Sex: 22 / F (units (unknown) date) Date of Service: unknown) (unknown) (no (unknown) (unknown) Allergies (units (unkn own) date) unknown) (unknown) (no (unknown) (unknown) [place], [place] (units ( unknown) date) [address] unknown) (unknown) (no (unknown) (unknown) Anaphylaxis (units [...] (unknown) (unknown) : 2000 (units (unknown) date) Acct:[id number] unknown) (unknown) (no (unknown) (unknown) Dept at [...] wn) date) unknown) (unknown) (no (unknown) (unknown) [id number] (units (unk nown) date) unknown) (unknown) (no (unknown) (unknown) [place], IBCLC for (units ( unknown) date) further details. unknown) (unknown) (no (unknown) (unknown) Mastitis (units (unkno wn) date) resolving, cont unknown) cephalexin. Home care reviewed. (unknown) (no (unknown) (unknown) Medical History (units (unknown) date) (Updated 10/10/22 unknown) @ 06:37 by Britney Wagnre MD) (unknown) (no (unknown) (unknown) PFSH (units [...] in complete sentences (unknown) (no (unknown) (unknown) [place], (units (unknown) date) [facility] for further unknown) details. (unknown) (no (unknown) (unknown) Signed By: (units (unk nown) date) <Electronically unknown) signed by Dina Bhakta D.O.> (unknown) (no (unknown) (unknown) Signed with (units (un known) date) Addenda unknown) (unknown) (no (unknown) (unknown) Smoking Status: (units (unknown) date) Never smoker unknown) (unknown) (no (unknown) (unknown) Surgical History (units (unknown) date) (Updated 10/10/22 unknown) @ 06:37 by Brtiney Wagner MD) (unknown) (no (unknown) (unknown) This [...] unknown) effort is made to edit content, spoon maker errors (unknown) (no (unknown) (unknown) vitals: BP (units (unk nown) date) 100/60, HR 67, T unknown) 97.8 Social History date description facility 2022-10-10 00:00 Never smoked tobacco (finding) [facility] 2022-10-23 00:00 Never smoked tobacco (finding) [facility] Vital Signs date measurement value units 2022-10-11 00:00 BP_diastolic 76 mmHg 2022-10-11 00:00 [...]
== END 2022-12-10 19:55 | disposition home or self-care (01) ==
LOC: ED 19:20
DX: H66.011 Acute suppurative otitis media with spontaneous rupture of ear drum, right ear (principal)
CPT/HCPCS: 99282; 99283; A9270

== ENCOUNTER 2023-09-11 21:04 | Emergency (ER) | payer OTHER ==
[2023-09-11 21:19] VITALS: BP 117/73
[2023-09-11] MEDS ORDERED: diphenhydrAMINE INJ 50 MG/ML VIAL IVP STA (21:19)
[2023-09-11] MEDS ORDERED: SODIUM CHLORIDE 0.9% 1,000 ML IV STA (21:19)
[2023-09-11] MEDS ORDERED: KETOROLAC 30 MG/ML VIAL IVP STA (21:19)
[2023-09-11] MEDS ORDERED: DROPERIDOL 5 MG/2 ML VIAL IVP STA (21:19)
--- NOTE | 2023-09-11 21:31 | ED Physician Documentation ---
PD HPI HEADACHE - Stated complaint Stated Complaint: VOMIT/MIGRAINE - Chief complaint Chief Complaint: Heent - History obtained from History obtained from: Patient - History of Present Illness Timing - onset: How many weeks ago (1) Timing - onset during: Rest Timing - duration: Weeks (1) Timing - details: Gradual onset Pain level max: 9 Pain level now: 9 Location: Global Quality: Throbbing, Aching Associated symptoms: Nausea, Vomiting, Eye pain. No: Fever, Stiff neck, Weakness, Numbness, Syncope, Seizure Improved by: Rest Worsened by: Light, Noise, Moving Contributing factors: No: Anticoagulated, Possible carbon monoxide, Hypertension Recently seen: Not recently seen - Additional information Additional information: Patient with a longstanding history of migraine headaches. Gradual onset headache over the past 1 week. No relief with Toradol at home yesterday. Headache progressively worsened today. Friend brought her in for evaluation. Patient states this is similar to her prior migraines. Review of Systems Constitutional: denies: Fever, Chills Cardiac: denies: Chest pain / pressure GI: denies: Nausea, Vomiting, Diarrhea Skin: denies: Rash Musculoskeletal: denies: Neck pain, Back pain Neurologic: reports: Headache. denies: Confused, LOC PD PAST MEDICAL HISTORY - Past Medical History Cardiovascular: None Respiratory: None Neuro: None Endocrine/Autoimmune: None GI: None TAX CLERK: None : None HEENT: Chronic vision loss Psych: Depression Musculoskeletal: None Derm: None - Past Surgical History Past Surgical History: No /TAX CLERK: Other - Present Medications Home Medications: Ambulatory Orders Medication Instructions Recorded Confirmed Ondansetron Odt [Zofran] 4 mg TL Q6H PRN #10 tablet 11/20/21 Sertraline [Zoloft] 50 mg PO DAILY 12/10/22 12/10/22 Sumatriptan Succinate [Imitrex] 100 mg PO PRN PRN 12/10/22 12/10/22 metFORMIN [Glucophage] 500 mg PO ONCE 12/10/22 12/10/22 Ondansetron Odt [Zofran] 4 mg TL Q6H PRN #10 tablet 09/11/23 Sumatriptan Succinate [Imitrex] 6 mg IM ONCE PRN #5 ea 09/11/23 - Allergies Allergies/Adverse Reactions: Allergies Allergy/AdvReac Type Severity Reaction Status Date / Time Penicillins Allergy Anaphylaxis Verified 12/08/22 07:46 - Social History Does the pt smoke?: No Smoking Status: Never smoker Does the pt drink ETOH?: No Does the pt have substance abuse?: No - Immunizations Immunizations are current?: Yes - POLST Patient has POLST: No PD ED PE NORMAL - Vitals Vital signs reviewed: Yes - General General: Alert and oriented X 3, Well developed/nourished, Other (Lying in a dark room, eyes closed, appears in pain) - HEENT HEENT: Atraumatic, PERRL, Moist mucous membranes - Neck Neck: Supple, no meningeal sign - Cardiac Cardiac: RRR, Strong equal pulses - Respiratory Respiratory: No respiratory distress, Clear bilaterally - Abdomen Abdomen: Soft, Non tender, Non distended - Back Back: No spinal TTP - Derm Derm: Warm and dry - Extremities Extremities: No edema, No calf tenderness / cord - Neuro Neuro: Alert and oriented X 3, 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 Headache fully resolved. Patient is awake in the room eyes open. Able to tolerate p.o. No residual photophobia. Patient is out of her Imitrex at home. We will refill this for her. No evidence of subarachnoid hemorrhage, tumor, mass. No indication for emergent neuroimaging. Patient counseled regarding signs and symptoms for which I believe and urgent re-evaluation would be necessary. Patient with good understanding of and agreement to plan and is comfortable going home at this time This document was made in part using voice recognition software. While efforts are made to proofread this document, sound alike and grammatical errors may occur. Departure - Departure Disposition: 01 Home, Self Care Clinical Impression: Migraine Qualifiers: Migraine type: unspecified Status migrainosus presence: without status migrainosus Intractability: not intractable Qualified Code(s): G43.909 - Migraine, unspecified, not intractable, without status migrainosus Condition: Good Instructions: ED Headache Migraine Follow-Up: your,doctor in 1 week [Other] Prescriptions: Sumatriptan Succinate [Imitrex] 6 mg IM ONCE PRN #5 ea PRN Reason: Headache Ondansetron Odt [Zofran] 4 mg TL Q6H PRN #10 tablet PRN Reason: Nausea / Vomiting Comments: Your prescriptions were sent to [facility] in [place]. Please follow-up with your doctor for further care. Please return if you worsen. Forms: PCP List Discharge Date/Time: 09/11/23 23:02
[2023-09-11] MEDS ORDERED: LORazepam 2 MG/ML VIAL IVP STA (21:49)
[2023-09-11 23:08] VITALS: O2SAT 98
== END 2023-09-11 23:02 | disposition home or self-care (01) ==
LOC: ED 21:04
DX: G43.909 Migraine, unspecified, not intractable, without status migrainosus (principal)
CPT/HCPCS: 96374; 96375; 99283; J1200; J2060

== ENCOUNTER 2024-01-11 14:00 | Emergency (ER) | payer OTHER ==
[2024-01-11 14:16] VITALS: O2SAT 100
[2024-01-11 14:45] LABS: BASOPHILS % (AUTO) 0.7 %; EOSINOPHILS # (AUTO) 0.1 10^3/uL (0.0-0.7); HCT - HEMATOCRIT 36.4 % (37.0-47.0); HGB - HEMOGLOBIN 11.8 g/dL (12.0-16.0); LYMPHOCYTES # (AUTO) 2.2 10^3/uL (1.5-3.5); LYMPHOCYTES % (AUTO) 38.4 %; MEAN CORPUSCULAR HEMOGLOBIN 29.3 pg (27.0-31.0); MEAN CORPUSCULAR HGB CONC 32.4 g/dL (32.0-36.0); MEAN CORPUSCULAR VOLUME 90.3 fL (81.0-99.0); MEAN PLATELET VOLUME 10.2 fL (7.9-10.8); MONOCYTES # (AUTO) 0.4 10^3/uL (0.0-1.0); MONOCYTES % (AUTO) 7.2 %; NEUTROPHILS # (AUTO) 3.1 10^3/uL (1.5-6.6); NEUTROPHILS % (AUTO) 52.7 %; PLT - PLATELET COUNT 256 10^3/uL (130-450); RED BLOOD COUNT 4.03 10^6/uL (4.20-5.40); RED CELL DISTRIBUTION WIDTH 12.8 % (12.0-15.0); WHITE BLOOD COUNT 5.8 x10^3/uL (4.8-10.8)
[2024-01-11 15:00] LABS: ALBUMIN 4.5 g/dL (3.2-5.5); ALBUMIN/GLOBULIN RATIO 1.7 (1.0-2.2); ALKALINE PHOSPHATASE 39 IU/L (42-121); ALT ALANINE AMINOTRANSFERASE 11 IU/L (10-60); AST ASPARTATE AMINOTRANSFERASE 11 IU/L (10-42); BILIRUBIN,TOTAL 0.4 mg/dL (0.2-1.0); BUN - BLOOD UREA NITROGEN 18 mg/dL (6-20); CALCIUM 9.6 mg/dL (8.5-10.3); CARBON DIOXIDE - CO2 28 mmol/L (21-32); CHLORIDE 104 mmol/L (101-111); CREATININE 0.7 mg/dL (0.6-1.3); GFR - MDRD 102 (>89); GLUCOSE 87 mg/dL (74-104); LIPASE 28 U/L (11-82); POTASSIUM 3.5 mmol/L (3.5-4.5); SODIUM 136 mmol/L (135-145); TOTAL PROTEIN 7.1 g/dL (6.4-8.9)
[2024-01-11 15:07] LABS: TROPONIN I HIGH SENSITIVITY < 2.3 ng/L (2.3-14.8)
--- NOTE | 2024-01-11 15:40 | XRAY Report ---
PROCEDURE: Chest 1V INDICATIONS: Chest Pain TECHNIQUE: One view of the chest was acquired. COMPARISON: 04/04/2020. FINDINGS: Surgical changes and devices: None. Lungs and pleura: No pleural effusions or pneumothorax. Lungs are clear. Mediastinum: Mediastinal contours appear normal. Heart size is normal. Bones and chest wall: No suspicious bony lesions. Overlying soft tissues appear unremarkable. IMPRESSION: No acute cardiopulmonary process. Reviewed by: Fermin Hammond MD on 01/11/2024 3:39 PM PDT Approved by: Fermin Hammond MD on 01/11/2024 3:39 PM PDT Station ID: [id number]
--- NOTE | 2024-01-11 15:42 | ED Physician Documentation ---
History of Present Illness - Stated complaint Stated Complaint: CHEST PX,SOB,N/V - Chief complaint Chief Complaint: Cardiac - History obtained from History obtained from: Patient - History of Present Illness Timing: Today, How many hours ago (2) Pain level max: 7 Pain level now: 5 - Additonal information Additional information: Patient is a 23-year-old female with the emergency department complaining of epigastric abdominal pain that started today. Described as sharp/burning. Nothing made it better or worse. She states is improving now. She had some nausea but no vomiting. Has not had similar symptoms previously. No change with exertion. No history of cardiac issues or disease. No history of abdo jimbo issues. Patient states that the epigastric pain radiated to the chest. Patient is not , breast-feeding or attempting to become . No urinary symptoms. No back pain. No recent travel. No history of blood clots. No leg or calf swelling. 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 : None HEENT: Chronic vision loss Psych: Depression Musculoskeletal: None Derm: None - Past Surgical History Past Surgical History: No /FURNITURE DESIGNER: Other - Present Medications Home Medications: Ambulatory Orders Medication Instructions Recorded Confirmed Ondansetron Odt [Zofran] 4 mg TL Q6H PRN #10 tablet 11/20/21 Sertraline [Zoloft] 50 mg PO DAILY 12/10/22 12/10/22 Sumatriptan Succinate [Imitrex] 100 mg PO PRN PRN 12/10/22 12/10/22 metFORMIN [Glucophage] 500 mg PO ONCE 12/10/22 12/10/22 Ondansetron Odt [Zofran] 4 mg TL Q6H PRN #10 tablet 09/11/23 Sumatriptan Succinate [Imitrex] 6 mg IM ONCE PRN #5 ea 09/11/23 Esomeprazole Magnesium [Nexium] 40 mg PO DAILY #30 cap 01/11/24 Famotidine [Pepcid] 20 mg PO BID #60 tablet 01/11/24 Sucralfate [Carafate] 1 gm PO ACHS #60 tablet 01/11/24 - Allergies Allergies/Adverse Reactions: Allergies Allergy/AdvReac Type Severity Reaction Status Date / Time Penicillins Allergy Anaphylaxis Verified 01/11/24 14:05 - Social History Does the pt smoke?: No Smoking Status: Never smoker Does the pt drink ETOH?: No Does the pt have substance abuse?: No - Immunizations Immunizations are current?: Yes - POLST Patient has POLST: No PD ED PE NORMAL - Vitals Vital signs reviewed: Yes - General General: Alert and oriented X 3, No acute distress - HEENT HEENT: PERRL, Moist mucous membranes - Neck Neck: Supple, no meningeal sign - Cardiac Cardiac: RRR, No murmur, Strong equal pulses - Respiratory Respiratory: No respiratory distress, Clear bilaterally - Abdomen Abdomen: Normal bowel sounds, Soft, Non distended, Other (Tender to palpation epigastric without peritoneal signs. Negative Govea sign. Otherwise benign abdominal exam.) - Back Back: No CVA TTP - Derm Derm: Warm and dry - Extremities Extremities: No edema, No calf tenderness / cord - Neuro Neuro: Alert and oriented X 3 - Psych Psych: Normal mood, Normal affect Results - Vitals Vitals: Vital Signs - 24 hr 01/11/24 01/11/24 14:05 16:37 Temperature 36.8 C Heart Rate 81 62 Respiratory 16 18 Rate Blood Pressure 135/84 H 104/79 O2 Saturation 100 100 Oxygen O2 Source Room air - EKG (time done) 1417 EKG releavant findings:: EKG personally interpreted by author of this note. Relevant findings are: Rate: Rate (enter#) (53) Rhythm: NSR, Other (PAC) [place]: Normal Intervals: Normal DC QRS: Normal Ischemia: Normal ST segments - Labs Labs: Laboratory Tests 01/11/24 01/11/24 14:39 14:39 WBC 5.8 RBC 4.03 L Hgb 11.8 L Hct 36.4 L MCV 90.3 MCH 29.3 MCHC 32.4 RDW 12.8 Plt Count 256 MPV 10.2 Neut # (Auto) 3.1 Lymph # (Auto) 2.2 [place] # (Auto) 0.4 Eos # (Auto) 0.1 Baso # (Auto) 0.0 Absolute Nucleated RBC 0.00 Nucleated RBC % 0.0 Sodium 136 Potassium 3.5 Chloride 104 Carbon Dioxide 28 Anion Gap 4.0 L BUN 18 Creatinine 0.7 Estimated GFR (MDRD) 102 Glucose 87 Calcium 9.6 Total Bilirubin 0.4 AST 11 ALT 11 Alkaline Phosphatase 39 L Troponin I High Sens < 2.3 L Total Protein 7.1 Albumin 4.5 Globulin 2.6 Albumin/Globulin Ratio 1.7 Lipase 28 - Rads (name of study) cxr Relevant Findings:: Final report received, See rad report PD Medical Decision Making - ED course Complexity details: reviewed results, re-evaluated patient, considered differential, d/w patient ED course: No acute findings on chest x-ray or EKG. Symptoms resolved with a GI cocktail. Symptoms consistent with gastritis versus GERD. No significant lab abnormalities. Negative high-sensitivity troponin. No ACS or cardiac history. No evidence of DVT/PE. Patient is very well-appearing, nontoxic. Afebrile. Tolerating p.o. without difficulty after the GI cocktail. We will place her on Carafate, H2 jf and PPI for home. Recommend outpatient endoscopy. Abdomen is soft, nontender nondistended on serial examination. Patient counseled regarding signs and symptoms for which I believe and urgent re-evaluation would be necessary. Patient with good understanding of and agreement to plan and is comfortable going home at this time This document was made in part using voice recognition software. While efforts are made to proofread this document, sound alike and grammatical errors may occur. Departure - Departure Disposition: 01 Home, Self Care Clinical Impression: Abdominal pain Qualifiers: Abdominal location: epigastric Qualified Code(s): R10.13 - Epigastric pain GERD (gastroesophageal reflux disease) Qualifiers: Esophagitis presence: with esophagitis Esophagitis bleeding: without hemorrhage Qualified Code(s): K21.00 - Gastro-esophageal reflux disease with esophagitis, without bleeding Condition: Good Instructions: ED GERD Follow-Up: PHILLIP ROGERS PA [Primary Care Provider] - Within 1 week Prescriptions: Sucralfate [Carafate] 1 gm PO ACHS #60 tablet Esomeprazole Magnesium [Nexium] 40 mg PO DAILY #30 cap Famotidine [Pepcid] 20 mg PO BID #60 tablet Comments: Your prescriptions were sent to [facility] in [place]. Please use the medications as prescribed. Please follow a bland diet. Your doctor can schedule you for an endoscopy to confirm the diagnosis and to exclude anything such as an ulcer or other causes of esophagitis. Please return if you worsen. Please avoid spicy foods, fried foods, caffeine, alcohol and anti-inflammatory medication such as Motrin and Aleve. Forms: PCP List Discharge Date/Time: 01/11/24 16:36
[2024-01-11] MEDS: MAG HYDROX/AL HYDROX/SIMETH 30 ML UDC PO STA (15:54)
[2024-01-11] MEDS: LIDOCAINE VISCOUS 2% 15 ML ORAL SYRINGE MM STA (15:55)
[2024-01-11] MEDS: SUCRALFATE 1 GM/10 ML UDC PO STA (15:55)
[2024-01-11] MEDS: FAMOTIDINE 20 MG TABLET PO STA (15:55)
[2024-01-11 16:44] VITALS: BP 104/79
== END 2024-01-11 16:36 | disposition home or self-care (01) ==
LOC: ED 14:00
DX: K21.00 Gastro-esophageal reflux disease with esophagitis, without bleeding (principal); E11.9 Type 2 diabetes mellitus without complications; Z79.84 Long term (current) use of oral hypoglycemic drugs
CPT/HCPCS: 36415; 71045; 80053; 83690; 84484; 85025; 93005; 99284; A9270